=== PATIENT | male | born 1950 | race Caucasian/White ===

== ENCOUNTER 2017-10-29 10:08 | Emergency (ER) | payer MEDICARE, OTHER ==
[2017-10-29 11:42] LABS: #Basophils 0.1 thou/uL (0.0-0.2); #Eosinphils 0.1 thou/uL (0.0-0.7); #Lymphocytes 0.9 thou/uL (1.20-3.40); #Monocytes 1.2 thou/uL (0.11-0.59); #Neutrophils 7.2 thou/uL (1.40-6.50); %Basophils 0.6 % (0.0-1.0); %Eosinophils 1.4 % (0.0-10.0); %Lymphocytes 9.1 % (21.0-51.0); %Monocytes 12.2 % (0.0-10.0); %Neutrophils 76.6 % (42.0-75.0); Hemoglobin 14.9 g/dL (14.0-18.0); Mean Corpuscular HGB CONC 31.9 g/dL (32.0-36.0); Mean Corpuscular Hemoglobin 28.2 pg (27.0-31.0); Mean Corpuscular Volume 88.4 fl (80.0-94.0); Mean Platelet Volume 7.1 fL (7.4-10.4); Platelet Count 349 thou/uL (130-400); RBC Distribution Width 12.9 % (11.5-14.5); Red Blood Cell (RBC) Count 5.27 mill/uL (4.70-6.10); White Blood Cell (WBC) Count 9.4 thou/uL (4.8-10.8)
[2017-10-29 11:59] LABS: ALT (SGPT) 25 U/L (8-55); AST (SGOT) 47 U/L (5-34); Albumin 3.6 g/dL (3.4-4.8); Alkaline Phosphatase 124 U/L (40-150); Anion Gap 16 mmol/L (10-20); BUN (Urea Nitrogen) 18 mg/dL (8.4-25.7); Bilirubin, Total 0.5 mg/dL (0.2-1.2); Calc. Creatinine Clearance 0 mL/min (70-130); Calcium 10.5 mg/dL (7.8-10.44); Carbon Dioxide 26 mmol/L (23-31); Chloride 98 mmol/L (98-107); Estimated GFR-MDRD 71; Globulin 2.6 g/dL (2.4-3.5); Glucose 122 mg/dL (80-115); Potassium 4.5 mmol/L (3.5-5.1); Protein, Total 6.2 g/dL (5.8-8.1); Sodium 135 mmol/L (136-145)
[2017-10-29] MEDS ORDERED: predniSONE 20 MG TAB ONE (11:59)
[2017-10-29] MEDS ORDERED: hydrOXYzine 10 MG TAB PO SCH (12:15)
[2017-10-29 13:16] LABS: Bilirubin Small (Negative); Blood, Urine Large (Negative); Clarity CLOUDY (Clear); Glucose, Urine (Dipstick) Negative (Negative); Leukocyte Trace (Negative); Nitrite Negative (Negative); Protein, Urine (Dipstick) 30 mg/dL (Neg-Trace); Specific Gravity, Urine 1.028 (1.002-1.036)
[2017-10-29 13:21] LABS: Bacteria/HPF None Seen HPF (None Seen); Hyaline Casts/LPF 4-6 HYALINE CAST LPF (0-3 Hyaline); Pathc Cast-AUWi Flag 1.01 (0-2.49); RBC/HPF 21-50 HPF (0-3); Squamous Epithelial None Seen HPF (0-3); WBC/HPF 0-3 HPF (0-3)
== END 2017-10-29 14:20 | disposition home or self-care (01) ==
LOC: ERS 10:08
DX: R21 Rash and other nonspecific skin eruption (principal); R31.9 Hematuria, unspecified; Z87.891 Personal history of nicotine dependence
CPT/HCPCS: 36415; 80053; 81003; 81015; 85025; 86140; 99283; J7506

== ENCOUNTER 2017-11-18 11:44 | Inpatient (IN) | payer MEDICARE, OTHER ==
[2017-11-18 12:08] LABS: #Basophils 0.1 thou/uL (0.0-0.2); #Eosinphils 0.1 thou/uL (0.0-0.7); #Lymphocytes 1.5 thou/uL (1.20-3.40); #Monocytes 1.9 thou/uL (0.11-0.59); %Basophils 0.4 % (0.0-1.0); %Eosinophils 0.4 % (0.0-10.0); %Lymphocytes 7.6 % (21.0-51.0); %Monocytes 9.7 % (0.0-10.0); %Neutrophils 81.9 % (42.0-75.0); Hemoglobin 15.5 g/dL (14.0-18.0); Mean Corpuscular HGB CONC 32.5 g/dL (32.0-36.0); Mean Corpuscular Hemoglobin 27.7 pg (27.0-31.0); Mean Corpuscular Volume 85.4 fl (80.0-94.0); Mean Platelet Volume 6.6 fL (7.4-10.4); Platelet Count 455 thou/uL (130-400); RBC Distribution Width 14.8 % (11.5-14.5); Red Blood Cell (RBC) Count 5.59 mill/uL (4.70-6.10); White Blood Cell (WBC) Count 19.5 thou/uL (4.8-10.8)
[2017-11-18 12:29] LABS: ALT (SGPT) 130 U/L (8-55); AST (SGOT) 208 U/L (5-34); Albumin 3.3 g/dL (3.4-4.8); Alkaline Phosphatase 760 U/L (40-150); Anion Gap 19 mmol/L (10-20); BUN (Urea Nitrogen) 52 mg/dL (8.4-25.7); Bilirubin, Total 7.1 mg/dL (0.2-1.2); Calc. Creatinine Clearance 0 mL/min (70-130); Carbon Dioxide 27 mmol/L (23-31); Chloride 87 mmol/L (98-107); Estimated GFR-MDRD 41; Globulin 2.4 g/dL (2.4-3.5); Glucose 99 mg/dL (80-115); Lipase 156 U/L (8-78); Potassium 5.1 mmol/L (3.5-5.1); Protein, Total 5.7 g/dL (5.8-8.1); Sodium 128 mmol/L (136-145)
[2017-11-18] MEDS ORDERED: Meropenem 2 GM, Admixture Fee 1 EACH in Sodium Chloride 0.9% 100 ML IVPB SCH (12:30)
[2017-11-18] MEDS ORDERED: Meropenem 2 GM in Admixture Fee 1 EACH IVPB SCH (12:30)
[2017-11-18 12:31] LABS: Calcium 14.5 mg/dL (7.8-10.44)
--- NOTE | 2017-11-18 13:17 | CT ---
CONTRAST ENHANCED CT IMAGES OF THE ABDOMEN AND PELVIS: HISTORY: Jaundice, metastases to liver. FINDINGS: Contrast-enhanced CT images of the abdomen and pelvis were obtained after administration of IV contra st. Tiny bilateral pleural effusions seen. Granuloma is seen in the right lower lobe. There is an anterior pericardial soft tissue mass measuring approximately 1.5 x 2.6 cm. This may rep resent a pericardial metastatic disease. There are numerous hepatic hypodense lesions compatible with extensive liver metastases. The majority of the spleen has been replaced by hypodense masses. There is splenomegaly seen. Findi ngs compatible with extensive splenic metastases. There is marked periportal lymphadenopathy, celiac lymphadenopathy, periaortic lymphadenopathy. Lymphadenopathy is seen enveloping the left renal vein . Numerous enlarged mesenteric lymph nodes are also seen. There is also a large mass posterior to t he pancreatic head. No obvious evidence of osseous lesion seen. Lumbar degenerative change is seen. There is abnormal enhancement of the gallbladder. There appears to be some gallbladder wall thickening and some enhancing concerning for acute cholecys titis. Some small gallstones are also present. There is a 7.8 mm nonobstructing mid pole left renal calculus. There is also an obstructing left ure teral calculus diameter measuring approximately 9.6 mm; however, the left-sided collecting system is not dilated. IMPRESSION: 1. Extensive intraabdominal lymphadenopathy, extensive hepatic, pericardial, and splenic lesions com patible with extensive metastatic disease. Differential diagnosis includes lymphoma. 2. Abnormal enhancement of the gallbladder with areas of hyperdensity within the gallbladder compati ble with acute cholecystitis and gallstones. 3. Left-sided renal calculus with nonobstructing but large left ureteral calculus. POS: CHRISTIANE
[2017-11-18 13:32] LABS: Bilirubin Moderate (Negative); Blood, Urine Large (Negative); Clarity CLEAR (Clear); Glucose, Urine (Dipstick) Negative (Negative); Leukocyte Small (Negative); Nitrite Negative (Negative); Protein, Urine (Dipstick) Negative (Neg-Trace); Specific Gravity, Urine 1.029 (1.002-1.036)
[2017-11-18 13:35] LABS: Bacteria/HPF None Seen HPF (None Seen); Hyaline Casts/LPF 4-6 HYALINE CAST LPF (0-3 Hyaline); Pathc Cast-AUWi Flag 1.74 (0-2.49); Squamous Epithelial None Seen HPF (0-3)
--- NOTE | 2017-11-18 13:35 | ULT ---
RIGHT UPPER QUADRANT ULTRASOUND: HISTORY: Right upper quadrant pain, jaundice. FINDINGS: Multiple longitudinal and transverse images of the right upper quadrant of the abdomen were obtained using a multihertz curvilinear transducer. Real-time, color flow, and spectral waveform Doppler anal ysis was used to evaluate the right upper quadrant. Images demonstrate marked heterogeneity compatible with extensive liver metastases. The common bile duct is not significantly dilated measuring approximately 6 mm. Normal hepatopetal flow is seen. The right kidney is unremarkable. The pancreas is difficult to visualize due to overlying bowel gas. Please see accompanying CT of the abdomen. The gallbladder is difficult to visualize. IMPRESSION: Extensive hepatic metastases. POS: MILENA
[2017-11-18 13:45] LABS: Crystals/HPF 1+ CA OXALATE HPF (Negative)
[2017-11-18] MEDS ORDERED: Sodium Chloride 0.9% 1,000 ML IV SCH (15:27)
[2017-11-18] MEDS ORDERED: Ondansetron HCl/PF 4 MG/2 ML Vial IVP PRN (15:35)
[2017-11-18] MEDS ORDERED: Morphine 4 MG/ML VIAL SLOW IVP PRN (15:38)
[2017-11-18] MEDS ORDERED: cefTRIAXone\\ROCEPHIN 1 GM in Sodium Chloride 0.9% 100 ML IVPB SCH (15:45)
[2017-11-18 15:57] LABS: INR-International Normal Ratio 1.1; PTT 31.8 SEC (22.9-36.1)
[2017-11-18] MEDS ORDERED: Zoledronic Acid 4 MG in Sodium Chloride 0.9% 100 ML IVPB SCH (16:30)
[2017-11-18] MEDS ORDERED: ISOVUE-370 76%-LOCM 1 ML ONE (16:31)
[2017-11-18] MEDS: Dextrose 5 %-0.45 % NaCl 1,000 ML IV SCH (17:53)
[2017-11-18] MEDS: cefTRIAXone\\ROCEPHIN 1 GM, Syringe 0.4 ML in Sterile Water 9.6 ML SLOW IVP SCH (17:58)
--- NOTE | 2017-11-18 18:29 | HP ---
PRIMARY CARE PROVIDER: [place]o[facility]ano Chi. CHIEF COMPLAINT: Referred to the [facility] by [facility] Emergency Department for widely metastatic abdominal CA. HISTORY OF PRESENT ILLNESS: Patient states he cannot move himself. He has had profound weakness. H e states his illness started about 4 or 5 months ago when he hurt his knee. His weakness, etcetera h as been progressive. He is anorectic, has lost an unknown number of pounds. He has been nauseated w ith no definite emesis. He has had markedly decreased BMs had been dark, not angelica colored and not bl ack. He has had diffuse abdominal pain for about 2 months. Denies any back pain. Denies fever or c hills. He has had some diffuse itching and some variable dizziness. PAST MEDICAL HISTORY: Pertinent only for hypertension. MEDICATIONS: He takes lisinopril, unknown dose. ALLERGIES: SULFA. PAST SURGICAL HISTORY: He has had unobstructed renal stone, treated with lithotripsy in the past. FAMILY HISTORY: Mother and father both . There is no inherited diseases in the family. SOCIAL HISTORY: . Daughter, Margaret Frias is next of kin. No tobacco. Drinks couple of drink s occasionally. CODE STATUS: DNR. I discussed this with him, his son, and daughter. They discussed it together and they are agreeable with DNR, but do wish to have anything treated this treatable. I reassured him t hat this was indeed our plan. REVIEW OF SYSTEMS: GENERAL: Some vague dizziness without fainting. No fever or chills. Positive itching. EYES: No double vision, blurred vision, flashing lights. ENT: No ear pain or drainage. No nasal bleeding. No trouble swallowing. CARDIAC: No chest pain, orthopnea or paroxysmal nocturnal dyspnea. RESPIRATORY: He has some dyspnea on exertion, some vague shortness of breath at rest. No history of cough or asthma. GASTROINTESTINAL: See present illness. GENITOURINARY: He notes decreased urine output. No blood, no pain. MUSCULOSKELETAL: Profound weakness, nonfocal. No swelling or muscle pain or joint pain. NEUROLOGIC: No strokes, seizures or focal weakness. PSYCHIATRIC: No anxiety or depression. SKIN: No bruises, bleeding or rash. HEME/LYMPH: No tender or swollen lymph nodes in axilla, inguinal or cervical area. PHYSICAL EXAMINATION: GENERAL: He is an alert, appropriate, appearing chronically ill. VITAL SIGNS: Blood pressure 134/72, pulse 73, respirations 18, pulse ox 96 on room air, temperature 97.6. HEENT: Pupils equal and round. Extraocular movements are intact. Icteric sclerae. Tympanic membra anne clear. Nose is clear. Oral mucous membranes are dry. Dental hygiene is fair. NECK: No adenopathy, jugular venous distention, thyromegaly. CHEST: Clear to auscultation and percussion. HEART: Regular rate and rhythm. First and second heart sounds are clear. There are no appreciated murmurs or gallops. ABDOMEN: Diffusely tender, most pronounced in bilateral upper quadrants. There is hepatomegaly by p ercussion, splenomegaly could not be determined due to tenderness. Bowel sounds are active. There w ere no bruits. EXTREMITIES: Reveal no cyanosis, clubbing or edema. PULSES: Carotid, radial, femoral, and dorsalis pedis pulses intact. SKIN: He has decreased skin turgor, sallow complexion. Warm and dry. LYMPHATIC SURVEY: Negative for nodes in axilla, inguinal or cervical area. NEUROLOGICAL: Cranial nerves II through XII are intact. Deep tendon reflexes grossly symmetric. Mo ves all extremities. LABORATORY DATA: Sodium 128, potassium 5.1, chloride 87, CO2 of 27, BUN 52, creatinine 1.68. Lactic acid 3.2, calcium 14.5, bilirubin 7.1, AST 208, ALT 130. Alkaline phosphatase 760. Ammonia low at 17. Total serum protein is low at 5.7, albumin low at 3.3. Urine had a few white cells with small l eukocyte esterase and trace ketones. Hematology: White count 19.5, hemoglobin 15.5, platelet count 455,000. CT of the abdomen was reviewed by self. Results are extensive intra-abdominal adenopathy w ith hepatic pericardial and splenic lesions, abnormal and splitted gallbladders compatible with annie cystitis and cholelithiasis and a nonobstructing mid pole left renal calculus, obstructing left urete ral calculus. No EKG provided. ADMITTING DIAGNOSES: 1. Marked hypercalcemia. 2. Apparent widely metastatic intra-abdominal malignant process/carcinoma. 3. Abdominal pain. 4. Cholecystitis/cholelithiasis. 5. Acute renal failure. 6. Hypertension. 7. Renal stones. Situation has been discussed with the family. HIDA scan has been ordered for further evaluation of t he gallbladder. Dr. Narvaez has been consulted and is aware the patient. Dr. Gomez has been call ed and will see the patient tomorrow. The patient will also receive 4 mg of Zometa today. IV fluids will be given, morphine sulfate for pain, Zofran for nausea. Diet as tolerated for right now. Seri al lab including comp metabolic profile and CBC will be done daily for now. Antibiotic/Rocephin will be administered for possible abdominal infection. Blood cultures have been drawn. Prognosis on thi s patient is guarded.
[2017-11-18] MEDS ORDERED: Calcium Carbonate 500 MG ChewTAB PO PRN (20:42)
[2017-11-18] MEDS ORDERED: Prevnar 13-Val Conj/PF 0.5 ML SYRINGE IM ONE (21:00)
--- NOTE | 2017-11-18 22:18 | CON ---
DATE OF CONSULTATION: 11/18/2017 REASON FOR CONSULTATION: Possible cholecystitis. HISTORY: Mr. Montelongo is a 67-year-old man who came to the emergency room with a chief complaint of decreased appetite and energy. His daughter has also noticed a change in his skin color. He states that he started to feel bad about 4 months ago with intermittent fevers and chills. He has been havi ng night sweats to the point where he has to change the sheets and has also lost some weight. He den ies any abdominal pain, but has no appetite and is frequently nauseated. He has been having bowel mo vements, although he cannot recall when his last one was. He denies any melena or hematochezia. He denies any cough, sore throat, or runny nose. He has not had any rashes, but did say that he has had some flea bites and thought at first that he might be having an allergic reaction to them. He did c ome to the ER last month due to concern about his rash and was given some prednisone and sent home. He states that he was having his other symptoms then, but not to the same degree. He did have lab wo rk done at that time and his white count was normal and his LFTs were basically normal except for mil d elevation of his AST at 47. His calcium was slightly high at 10.5, but his other electrolytes were normal. PAST MEDICAL HISTORY: Hypertension. He takes lisinopril and reports SULFA allergy. FAMILY HISTORY: Negative. PAST SURGICAL HISTORY: Lithotripsy. SOCIAL HISTORY: He quit smoking 30 years ago. He drinks occasionally, does not use any illicit drug s. REVIEW OF SYSTEMS: Ten-system review of systems is negative except per HPI. PHYSICAL EXAMINATION: VITAL SIGNS: The patient is afebrile, heart rate in the 70s, respirations 18, 96% saturated on room air, blood pressure 134/72. GENERAL: Reveals a chronically ill appearing man with noticeable jaundice and icterus. He is not fl ushed or toxic in appearance. HEENT: Unremarkable. NECK: Supple without lymphadenopathy or thyroid nodules. HEART: Regular in its rate and rhythm without murmurs, rubs, or gallops. LUNGS: Clear. ABDOMEN: His abdomen is soft, slightly tender to palpation mostly in the right upper quadrant. He d oes have some hepatomegaly and splenomegaly. No other palpable masses or hernias. No rigidity, rebo und, or guarding. EXTREMITIES: Warm and well perfused without significant edema. I do not note any inguinal adenopath y. He may have a palpable left axillary lymph node. I do not notice any on the right. The patient does state that he was treated for enlarged lymph nodes in the past, but this got better. He states that these were in his axilla. NEUROLOGIC: No focal deficits. PSYCHIATRIC: Alert, oriented, and appropriate. LABORATORY AND DIAGNOSTIC DATA: White count is elevated at 19.5, hematocrit is 47.8, and platelets a re 455,000. Coags are normal. Sodium is low at 128, chloride is low at 87. BUN and creatinine are elevated at 52 and 1.68, calcium is elevated at 14.5. Lactate is slightly high at 3.2, bilirubin is very elevated at 7.1. AST and ALT are 208 and 130. Alkaline phosphatase is 760, albumin is low at 3 .3, and lipase is slightly elevated at 156. Ultrasound of the abdomen revealed multiple masses in li briana and spleen, gallbladder was not well seen. A CT scan confirms multiple metastatic appearing lesi ons in the liver and spleen as well as significant adenopathy in the octavio hepatis area and behind th e head of the pancreas. His gallbladder was noted to be enhancing with dense material in the lumen c onsistent with stones, worrisome for cholecystitis. ASSESSMENT: Metastatic cancer of uncertain primary, pancreatic and biliary sources are within the di fferential diagnosis in which case treatment options are limited. He does not have any specific joaquín rointestinal findings to suggest a gastric or colonic. Primary lymphoma is also possible and he does have some symptoms which are somewhat suggestive of this. There was concern for cholecystitis given his elevated white count and findings on CT; however, his tenderness in the right upper quadrant is adequately explained by the extensive metastases and even if he has cholecystitis, he is not really a n operative candidate, I think that given the extensive disease in the octavio hepatis area, it would b e very difficult to perform a laparoscopic cholecystectomy and technically he would only be likely to be able to undergo a subtotal cholecystectomy, which I am not convinced that he has cholecystitis ba sed on his history, but I have ordered a HIDA scan for tomorrow. If he does have cholecystitis, hope fully this will be adequately treated with antibiotics alone, but if he has worsening symptoms, I wou ld recommend cholecystostomy tube. I am not sure that the risks are justified by the potential benef it of the presumptive cholecystectomy, he will be at high risk for conversion to open and subtotal ch olecystectomy. I anticipate he will have a CT-guided biopsy of one of the livers or splenic masses f or diagnosis. If he requires a MediPort for chemotherapy, I will be happy to place this for him. I will continue to follow peripherally as previously stated, I do not feel he is an operative candidate .
[2017-11-19] MEDS: Dextrose 5 %-0.45 % NaCl 1,000 ML IV SCH ×2 (00:35→06:40)
[2017-11-19 05:23] LABS: ALT (SGPT) 131 U/L (8-55); AST (SGOT) 205 U/L (5-34); Albumin 2.7 g/dL (3.4-4.8); Alkaline Phosphatase 623 U/L (40-150); Anion Gap 15 mmol/L (10-20); BUN (Urea Nitrogen) 45 mg/dL (8.4-25.7); Bilirubin, Total 6.9 mg/dL (0.2-1.2); Calc. Creatinine Clearance 62 mL/min (70-130); Carbon Dioxide 26 mmol/L (23-31); Chloride 92 mmol/L (98-107); Estimated GFR-MDRD 55; Globulin 2.1 g/dL (2.4-3.5); Glucose 113 mg/dL (80-115); Potassium 4.9 mmol/L (3.5-5.1); Protein, Total 4.8 g/dL (5.8-8.1); Sodium 128 mmol/L (136-145)
[2017-11-19 05:30] LABS: Calcium 12.7 mg/dL (7.8-10.44)
[2017-11-19 05:31] LABS: Band 5 % (5-11); Hemoglobin 13.9 g/dL (14.0-18.0); Lymphocytes 4 % (21-51); MDiff Complete? YES; Mean Corpuscular HGB CONC 32.2 g/dL (32.0-36.0); Mean Corpuscular Hemoglobin 28.3 pg (27.0-31.0); Mean Corpuscular Volume 87.7 fl (80.0-94.0); Mean Platelet Volume 7.2 fL (7.4-10.4); Monocytes 11 % (0-10); Neutrophil 80 % (42-75); Platelet Count 373 thou/uL (130-400); RBC Distribution Width 14.9 % (11.5-14.5); Red Blood Cell (RBC) Count 4.93 mill/uL (4.70-6.10); White Blood Cell (WBC) Count 16.9 thou/uL (4.8-10.8)
--- NOTE | 2017-11-19 12:32 | PDOC.PN ---
- Subjective Encounter Start Date: 11/19/17 Encounter Start Time: 12:31 Patient seen and examined, no new issues, abdominal pain remains unchanged. - Objective Resuscitation Status: Resuscitation Status DNR:Do Not Resuscitate Vital Signs & Weight: Vital Signs (12 hours) Temp Pulse Resp BP Pulse Ox 11/19/17 08:00 98.0 F 76 16 104/69 94 L Weight Weight 179 lb 14.4 oz I&O: 11/18/17 11/19/17 11/20/17 06:59 06:59 06:59 Intake Total 1890 Output Total 750 Balance 1140 Result Diagrams: 11/19/17 04:27 11/19/17 04:27 Phys Exam - Physical Examination mild distress HEENT: PERRLA, moist MMs jaundiced Neck: no nodes, no JVD, supple Respiratory: no wheezing, no rales, no rhonchi Cardiovascular: RRR, no significant murmur, no rub Gastrointestinal: soft mild tenderness to palpation in all quadrants Musculoskeletal: pulses present, edema present (trace) Dx/Plan (1) Metastatic cancer Code(s): C79.9 - SECONDARY MALIGNANT NEOPLASM OF UNSPECIFIED SITE Status: Acute (2) Acute kidney failure Status: Acute (3) Hypercalcemia Code(s): E83.52 - HYPERCALCEMIA Status: Acute (4) Hyponatremia Code(s): E87.1 - HYPO-OSMOLALITY AND HYPONATREMIA Status: Acute - Plan * HIDA ordered for today and pending * surgery and oncology following * unknown primary malignancy * prognosis appears poor, will await oncology input prior to placement of palliative care consult * continue current plan of care for now with no changes * pain controlled.
--- NOTE | 2017-11-19 13:10 | CON ---
DATE OF CONSULTATION: 11/19/2017 REASON FOR CONSULTATION: Advanced malignancy. HISTORY: This is a 67-year-old male who has not been feeling well for about 4 months. He was having abdominal pain and fever. He was taking care of his terminally ill who 2 months ago. He was admitted yesterday and found to have extensive metastases including to liver, sp joseline and abdominal lymph nodes and was also found to be hypercalcemic. The patient was likely under the effect of pain medicine and was not able to give much history. In talking to his daughter, it se ems that he has been confused at times. PAST MEDICAL HISTORY: Positive for hypertension. DRUGS WITH ADVERSE EFFECT: SULFONAMIDES. PAST SURGICAL HISTORY: He had lithotripsy for renal stone. PERSONAL, FAMILY AND SOCIAL HISTORY: The patient has been recently . He lives by himself. H e drinks occasionally and quit smoking over 20 years ago. REVIEW OF SYSTEMS: I was not able to do detailed review of systems because the patient was not able to answer questions. PHYSICAL EXAMINATION: VITAL SIGNS: Height 5 feet 8 inches, weight 179, blood pressure 104/69, temperature 98, pulse 76, re spirations 16. HEENT: Unremarkable except for jaundice. LYMPH NODES: No definite adenopathy in cervical, supraclavicular, axillary or inguinal area. CHEST: Vesicular breath sounds without rales or rhonchi. HEART: S1 and S2. Regular rhythm. ABDOMEN: Soft. There is some tenderness in the upper abdomen. Bowel sounds present. EXTREMITIES: Without pedal edema. LABORATORY DATA AND IMAGING DATA: CBC showed WBC of 16.9, hemoglobin 13.9 and platelet count of 373. Differential showed 80% neutrophils and 4% lymphocytes. Protime PTT was normal yesterday. Staff Research Associate ry profile is remarkable for calcium that was 14.5 yesterday and 12.7 today. He is hyponatremic with sodium of 128. BUN 45, creatinine 1.3 with EGFR of 55. Bilirubin 6.9, AST 205, ALT 131 and alkalin e phosphatase 130. Serum ammonia elevated at [address] scan of the abdomen showed larg e volume metastatic deposits in the liver and spleen. There is also marked periportal lymphadenopath y, celiac adenopathy and periaortic adenopathy. Lymphadenopathy was enveloping the left renal vein. Numerous enlarged mesenteric lymph nodes were also noted. There is also a large mass posterior to t he pancreatic head. There was some thickening of the gallbladder wall. A 7.8 mm nonobstructing calc ulus was noted in the midpole of the left kidney. There was also an obstructing left ureteral calcul us measuring 9.6 mm without left-sided hydronephrosis. There was 1.5 x 2.6 cm anterior pericardial s oft tissue mass suggestive of pericardial metastasis. ASSESSMENT AND RECOMMENDATIONS: This patient has extensive metastatic disease involving liver, splee n and abdominal lymph nodes. There is a question about pericardial metastasis. This could potential ly be lymphoma. We do not have any imaging studies. The chest x-ray showed carcinoma of the lung wi ll have to be excluded. He is hyperbilirubinemic clinically from obstruction of the biliary tree and from hepatic mets. Hypercalcemia could be from skeletal mets or as paraneoplastic manifestation. He should be evaluated with a chest x-ray, bone scan, and a liver biopsy which has been ordered for t omorrow. Thanks very much for allowing me to participate in this patient's care.
--- NOTE | 2017-11-19 13:53 | RAD ---
AP VIEW OF THE CHEST: INDICATION: Concern for a lung mass. FINDINGS: No lung mass is demonstrated. There is a calcification overlying the right lower lobe suspicious for a granuloma. Heart size and pulmonary vasculature is within normal limits. No acute osseous abnorm ality is evident. IMPRESSION: No acute abnormality. POS: [facility]
--- NOTE | 2017-11-19 15:42 | PRG ---
DATE OF SERVICE: 11/19/2017 Mr. Montelongo is still very groggy today. He will wake up and answer questions. He denies abdominal pain, but still has abdominal tenderness to palpation. He has been afebrile and his vital signs are okay. Dr. Gomez has seen him and is concerned about the patient's ability to tolerate chemotherap y of any kind given his frailty. He has had some of his HIDA scan images, but the report is not back . I have looked at the images, but they are very difficult to interpret due to his widespread liver metastases. I cannot even definitely identify his gallbladder due to the abnormal appearance of the liver, so the HIDA may be uninterpretable. In any case, his white count is down somewhat and he has not had any fevers, so we will continue with just antibiotic treatment at this time.
--- NOTE | 2017-11-19 17:01 | NM ---
HEPATOBILIARY SCAN: History: Patient with possible cholecystitis. Abnormal gallbladder on CT. Dose: 1.9 mCi Technetium 99M Choletec given IV. In addition, 2 mg of Morphine was also given. Delayed images up to 5 hours obtained. FINDINGS: Images demonstrate uptake of the radioisotopes seen in the liver. At approximately 4 hours post injec tion, there is some visualization of some of the isotope within the small bowel. The gallbladder is n ever visualized even after injection of Morphine. Findings suggesting acute cholecystitis compatible with the patient's CT findings. IMPRESSION: Decreased excretion of the Choletec out of the biliary system with delayed and continued activity thr ough the hepatic parenchyma. There was some activity noted in the small bowel suggesting some biliary excretion. The gallbladder is never visualized compatible with acute cholecystitis. POS: [facility]
[2017-11-19] MEDS: cefTRIAXone\\ROCEPHIN 1 GM, Syringe 0.4 ML in Sterile Water 9.6 ML SLOW IVP SCH (17:55)
[2017-11-19] MEDS: Sodium Chloride 0.9% 1,000 ML IV SCH ×2 (17:57→18:41)
[2017-11-19] MEDS ORDERED: Ondansetron ODT 4 MG TAB SL PRN (20:12)
[2017-11-20] MEDS: Sodium Chloride 0.9% 1,000 ML IV SCH ×3 (03:43→23:58)
[2017-11-20 05:53] LABS: ALT (SGPT) 173 U/L (8-55); AST (SGOT) 249 U/L (5-34); Albumin 2.9 g/dL (3.4-4.8); Alkaline Phosphatase 687 U/L (40-150); Anion Gap 15 mmol/L (10-20); BUN (Urea Nitrogen) 46 mg/dL (8.4-25.7); Bilirubin, Total 9.3 mg/dL (0.2-1.2); Calc. Creatinine Clearance 60 mL/min (70-130); Carbon Dioxide 23 mmol/L (23-31); Chloride 96 mmol/L (98-107); Estimated GFR-MDRD 52; Globulin 2.3 g/dL (2.4-3.5); Glucose 79 mg/dL (80-115); Potassium 5.3 mmol/L (3.5-5.1); Protein, Total 5.2 g/dL (5.8-8.1); Sodium 129 mmol/L (136-145)
[2017-11-20 05:58] LABS: Band 10 % (5-11); Eosinophils 1 % (0-10); Hemoglobin 15.5 g/dL (14.0-18.0); Lymphocytes 3 % (21-51); MDiff Complete? YES; Mean Corpuscular HGB CONC 32.1 g/dL (32.0-36.0); Monocytes 8 % (0-10); Neutrophil 78 % (42-75); Platelet Count 333 thou/uL (130-400); RBC Distribution Width 15.2 % (11.5-14.5); Red Blood Cell (RBC) Count 5.54 mill/uL (4.70-6.10); White Blood Cell (WBC) Count 20.6 thou/uL (4.8-10.8)
[2017-11-20] MEDS ORDERED: Milk Of Magnesia 30 ML UDCUP PO PRN (07:23)
[2017-11-20] MEDS ORDERED: Diabetic Tussin 200 MG/10 ML UDCUP PO PRN (07:23)
[2017-11-20] MEDS ORDERED: Artificial Tears 18 DROP/0.9 ML EA EYE PRN (07:23)
[2017-11-20] MEDS ORDERED: hydrALAZINE 20 MG/ML VIAL SLOW IVP PRN (07:23)
[2017-11-20] MEDS ORDERED: Eucerin (Mineral Oil/Petrolatum,White) 30 gm Jar TOP PRN (07:23)
[2017-11-20] MEDS ORDERED: Chloraseptic Spray 180 ml Bottle PO PRN (07:23)
[2017-11-20] MEDS ORDERED: Sodium Chloride 0.65% Nasal 44 ML BOT EA NARE PRN (07:23)
[2017-11-20] MEDS ORDERED: Senokot 8.6 MG TAB PO PRN (07:23)
[2017-11-20] MEDS ORDERED: Loratadine 10 MG TAB PO PRN (07:23)
[2017-11-20] MEDS ORDERED: Mag-Al 1200 mg/1200 mg/30 ML UDCUP PO PRN (07:23)
[2017-11-20] MEDS ORDERED: Loperamide HCl 2 MG CAP PO PRN (07:23)
--- NOTE | 2017-11-20 08:33 | PDOC.PN ---
- Subjective Encounter Start Date: 11/20/17 Encounter Start Time: 07:00 -: old records requested/rev pt is lethargic, arousable, family bedside, pt did sleep intermittently, has poor apatite, no fever Patient seen and examined. No overnight events - Objective Resuscitation Status: Resuscitation Status DNR:Do Not Resuscitate MAR Reviewed: Yes Vital Signs & Weight: Vital Signs (12 hours) Temp Pulse Resp BP Pulse Ox 11/20/17 06:03 98.0 F 80 22 H 109/74 98 11/20/17 00:00 98 11/19/17 23:53 98.1 F 78 18 106/70 98 11/19/17 22:07 98.1 F 78 18 92 L Weight Weight 179 lb 14.4 oz I&O: 11/19/17 11/20/17 11/21/17 06:59 06:59 06:59 Intake Total 1890 1300 Output Total 750 450 Balance 1140 850 Result Diagrams: 11/20/17 04:58 11/20/17 04:57 Radiology Reviewed by me: Yes (CT abdo, HIDA scan, Chest xray) Phys Exam - Physical Examination Constitutional: NAD HEENT: PERRLA, moist MMs Icterus+ Neck: no JVD, supple, full ROM Respiratory: no wheezing, no rales, no rhonchi Cardiovascular: RRR, no significant murmur, no rub Gastrointestinal: soft, non-tender, no distention, positive bowel sounds Musculoskeletal: no edema, pulses present Neurological: moves all 4 limbs Lymphatic: no nodes Psychiatric: normal affect Skin: no rash, normal turgor Dx/Plan (1) Acute metabolic encephalopathy Code(s): G93.41 - METABOLIC ENCEPHALOPATHY Status: Acute (2) Abnormal LFTs Code(s): R94.5 - ABNORMAL RESULTS OF LIVER FUNCTION STUDIES Status: Acute Comment: suspecting from liver metastasis, doubt has any acute cholecystitis (3) Acute kidney failure Status: Acute Comment: prerenal, continue IVF, avoid nephrotoxin, monitor renal function (4) Bandemia Code(s): D72.825 - BANDEMIA Status: Acute Comment: may be metastasis related , still on empiric antibiotics (5) Hypercalcemia Code(s): E83.52 - HYPERCALCEMIA Status: Acute Comment: due to paraneuoplastic process (6) Hyperkalemia Code(s): E87.5 - HYPERKALEMIA Status: Acute (7) Hyponatremia Code(s): E87.1 - HYPO-OSMOLALITY AND HYPONATREMIA Status: Acute (8) Lactic acidosis Code(s): E87.2 - ACIDOSIS Status: Acute (9) Left nephrolithiasis Code(s): N20.0 - CALCULUS OF KIDNEY Status: Chronic (10) Left ureteral calculus Code(s): N20.1 - CALCULUS OF URETER Status: Chronic (11) Metastatic cancer Code(s): C79.9 - SECONDARY MALIGNANT NEOPLASM OF UNSPECIFIED SITE Status: Acute Comment: unknown primary - Plan cont current plan of care, plan discussed w/ family, continue antibiotics * today plan for liver biopsy * today Bone scan * no plan for lap annie as per surgeon * continue conservative treatment with IVF, empiric antibiotics * oncology following * monitor labs * prognosis based on final diagnosis * palliative care based on final diagnosis * medication reviewed as below * symptomatic treatment * discussed with family. Review of Systems - Review of Systems Other: not reliable due to his level of alertness - Medications/Allergies Allergies/Adverse Reactions: Allergies Allergy/AdvReac Type Severity Reaction Status Date / Time Sulfa (Sulfonamide Allergy Verified 10/29/17 12:08 Antibiotics) Medications: Current Medications Al Hydroxide/Mg Hydroxide (Maalox) 15 ml PO Q4H PRN PRN Reason: Heartburn or Indigestion Artificial Tears (Tears Naturale) 0 drop EA EYE PRN PRN PRN Reason: Dry Eyes Famotidine (Pepcid) 20 mg PO BID [facility] Guaifenesin (Robitussin Sf) 200 mg PO Q4H PRN PRN Reason: Cough Hydralazine HCl (Apresoline) 10 mg SLOW IVP Q4H PRN PRN Reason: Systolic BP > 180 Ceftriaxone Sodium 1 gm/ (Syringe 0.4 ml/ Sterile Water) 10 mls @ 120 mls/hr SLOW IVP Q24HR@1700 [facility] Last Admin: 11/19/17 17:55 Dose: 10 mls Sodium Chloride (Normal Saline 0.9%) 1,000 mls @ 100 mls/hr IV .Q10H [facility] Last Admin: 11/20/17 03:43 Dose: 1,000 mls Loperamide HCl (Imodium) 2 mg PO PRN PRN PRN Reason: Diarrhea/Loose Stools Loratadine (Claritin) 10 mg PO DAILYPRN PRN PRN Reason: Sinus Symptoms Magnesium Hydroxide (Milk Of Magnesium) 30 ml PO DAILYPRN PRN PRN Reason: Constipation Mineral Oil/White Petrolatum (Eucerin Cream) 0 gm TOP BIDPRN PRN PRN Reason: Dry Skin Morphine Sulfate (Morphine) 2 mg SLOW IVP Q4H PRN PRN Reason: Pain Last Admin: 11/19/17 14:23 Dose: 2 mg Ondansetron HCl (Zofran) 4 mg IVP Q6H PRN PRN Reason: Nausea/Vomiting Last Admin: 11/18/17 19:39 Dose: 4 mg Ondansetron HCl (Zofran Odt) 4 mg SL Q6H PRN PRN Reason: Nausea/Vomiting Phenol (Chloraseptic [place] 180 Ml Bot) 0 ml PO PRN PRN PRN Reason: Sore Throat Senna (Senokot) 2 tab PO HSPRN PRN PRN Reason: Constipation Sodium Chloride ([place] Nasal [place] 0.65%) 0 ml EA NARE QIDPRN PRN PRN Reason: Nasal Congestion
[2017-11-20] MEDS: Famotidine 20 MG TAB PO SCH ×2 (09:00→20:31)
[2017-11-20] MEDS ORDERED: Midazolam HCl 2 mg/2 ml Vial ONE (10:41)
[2017-11-20] MEDS ORDERED: Sodium Bicarbonate 2.5 MEQ/5 ML VIAL ONE (10:41)
[2017-11-20] MEDS ORDERED: Fentanyl 100 MCG/2 ML VIAL ONE (10:41)
--- NOTE | 2017-11-20 12:18 | CT ---
CT GUIDED PERCUTANEOUS BIOPSY OF A MASS IN LEFT HEPATIC LOBE: DATE: 11/20/17. HISTORY: Patient with multiple hepatic and splenic lesions as well as aortocaval lymphadenopathy and findings suggesting metastatic disease based on prior imaging findings. Biopsy of a hepatic lesion was reques saeed. TECHNIQUE: After informed consent was obtained, the patient was placed on the CT scan table in supine position. A limited noncontrasted CT scan was obtained through the liver with grid localizer in place overlyin g the left hepatic lobe. An area was marked and then meticulously prepped and draped in the usual sterile fashion. The skin a nd subcutaneous tissues were infiltrated with buffered 1% Lidocaine for local anesthesia. A small sk in incision was made. A 17 gauge guide needle was advanced followed by [address] images . This was repeated until the tip of the needle was placed just within the largest mass within the l ateral segment left hand lobe. Utilizing coaxial technique, a total of three 18-gauge core needle biopsy specimens were obtained. T he inner stylette was replaced, and the needle was removed. Hemostasis was achieved with direct pres sure. Noncontrasted CT images obtained post biopsy demonstrate no perihepatic fluid in region of bio psy and no findings to suggest hemorrhage. A dry sterile dressing was placed at needle puncture site. The patient tolerated the procedure well and without immediate complication. The patient was transported to his hospital room in stable condi tion. IMPRESSION: Technically successful CT-guided percutaneous biopsy of a left hepatic lobe mass. Pathology is curre ntly pending at this time. POS: [facility]
--- NOTE | 2017-11-20 17:12 | PDOC.GSPN ---
Surgery Progress Note: Subj - Subjective Narrative: Patient states that he is feeling better now since he has gotten to eat. He is eating lunch without problems. He has a little more alert today. His family states that he has not complained of any pain. No nausea or vomiting. White count is still elevated at around 20,000. He has not had any fevers. I discussed his CT and HIDA scan results with the radiologist today. The gallbladder was quite contracted and the radiologist does not feel that he could place a drain into the gallbladder, although potentially he could aspirate it. However it does not appear to have much fluid in it. Assessment/plan: With extensive metastatic disease of unknown primary. He has an elevated white count and findings on CT that are suggestive of cholecystitis. His head did not show any visualization of the gallbladder. I'm not convinced that he actually has acute cholecystitis. This could represent cystic duct obstruction obstruction due to his extensive cancer in the octavio hepatis. He does have right upper quadrant tenderness but this could also be due to his extensive tumor burden in that area. He is not having pain or fever. At this point I recommend continuing with antibiotics. If he worsens then radiology can attempt to aspirate his gallbladder for Gram stain and culture, but he is not really a surgical candidate and they do not feel they could successfully place a drain either due to the contracted nature of his gallbladder. Surgery Progress Note: Obj - Vital signs Vital signs: Vital Signs - Most Recent Temp Pulse Resp BP Pulse Ox 97.8 F 76 20 90/61 96 11/20/17 16:15 11/20/17 16:15 11/20/17 16:15 11/20/17 16:15 11/20/17 16:15 Surgery Progress Note: Results - Labs Result Diagrams: 11/20/17 04:58 11/20/17 04:57 Lab results: Laboratory Results - last 24 hr 11/20/17 11/20/17 11/20/17 04:57 04:57 04:58 WBC 20.6 H RBC 5.54 Hgb 15.5 Hct 48.2 MCV 87.0 MCH 28.0 MCHC 32.1 RDW 15.2 H Plt Count 333 MPV 7.0 L Neutrophils % (Manual) 78 H Band Neuts % (Manual) 10 Lymphocytes % (Manual) 3 L Monocytes % (Manual) 8 Eosinophils % (Manual) 1 Sodium 129 L Potassium 5.3 H Chloride 96 L Carbon Dioxide 23 Anion Gap 15 BUN 46 H Creatinine 1.35 H Estimated GFR (MDRD) 52 Glucose 79 L Calcium 12.0 H Total Bilirubin 9.3 H AST 249 H ALT 173 H Alkaline Phosphatase 687 H Lactate Dehydrogenase 517 H Serum Total Protein 5.2 L Albumin 2.9 L Globulin 2.3 L Albumin/Globulin Ratio 1.3 Carcinoembryonic Ag 11/20/17 04:58 WBC RBC Hgb Hct MCV MCH MCHC RDW Plt Count MPV Neutrophils % (Manual) Band Neuts % (Manual) Lymphocytes % (Manual) Monocytes % (Manual) Eosinophils % (Manual) Sodium Potassium Chloride Carbon Dioxide Anion Gap BUN Creatinine Estimated GFR (MDRD) Glucose Calcium Total Bilirubin AST ALT Alkaline Phosphatase Lactate Dehydrogenase Serum Total Protein Albumin Globulin Albumin/Globulin Ratio Carcinoembryonic Ag 5.71 H
[2017-11-20] MEDS: cefTRIAXone\\ROCEPHIN 1 GM, Syringe 0.4 ML in Sterile Water 9.6 ML SLOW IVP SCH (17:27)
[2017-11-21 06:29] LABS: ALT (SGPT) 153 U/L (8-55); AST (SGOT) 221 U/L (5-34); Albumin 2.6 g/dL (3.4-4.8); Alkaline Phosphatase 600 U/L (40-150); Anion Gap 15 mmol/L (10-20); BUN (Urea Nitrogen) 53 mg/dL (8.4-25.7); Bilirubin, Total 9.7 mg/dL (0.2-1.2); Calc. Creatinine Clearance 61 mL/min (70-130); Carbon Dioxide 21 mmol/L (23-31); Chloride 97 mmol/L (98-107); Estimated GFR-MDRD 54; Globulin 2.1 g/dL (2.4-3.5); Glucose 79 mg/dL (80-115); Potassium 5.4 mmol/L (3.5-5.1); Protein, Total 4.7 g/dL (5.8-8.1); Sodium 128 mmol/L (136-145)
[2017-11-21 06:43] LABS: Band 6 % (5-11); Hemoglobin 14.5 g/dL (14.0-18.0); Lymphocytes 2 % (21-51); MDiff Complete? YES; Mean Corpuscular Hemoglobin 28.7 pg (27.0-31.0); Mean Corpuscular Volume 86.8 fl (80.0-94.0); Mean Platelet Volume 7.2 fL (7.4-10.4); Monocytes 12 % (0-10); Neutrophil 80 % (42-75); Platelet Count 315 thou/uL (130-400); RBC Distribution Width 15.5 % (11.5-14.5); Red Blood Cell (RBC) Count 5.07 mill/uL (4.70-6.10); Target Cells SLIGHT = 2-5 cells (100X) (0-1/hpf); White Blood Cell (WBC) Count 23.2 thou/uL (4.8-10.8)
[2017-11-21] MEDS: Famotidine 20 MG TAB PO SCH (09:03)
[2017-11-21] MEDS: Sodium Chloride 0.9% 1,000 ML IV SCH (12:52)
--- NOTE | 2017-11-21 12:55 | NM ---
NUCLEAR MEDICINE BONE SCAN: HISTORY: Metastatic cancer. COMPARISON: CT from 11/08/2017. TECHNIQUE: Whole body planar imaging, three-hour delayed, after the intravenous administration of 33 millicuries of technetium 99m MDP, was performed. FINDINGS: Both kidneys and urinary bladder are visualized. Degenerative changes of both knee joints. No evide nce for abnormal increased radiotracer uptake. No focal osteopenia. Increased uptake within the left distal tibia, as well as of the calcaneus, talus, and mid foot. IMPRESSION: 1. No evidence for osseous metastatic disease. 2. Degenerative changes of left hindfoot may represent arthrodesis. POS: [facility]
--- NOTE | 2017-11-21 15:03 | PDOC.GSPN ---
Surgery Progress Note: Subj - Subjective Narrative: Patient states that he is feeling okay. He denies abdominal pain. He states that when he eats too fast it tends to go down the wrong pipe. His friend at the bedside states that the patient was complaining of pain in his throat with swallowing earlier. He is passing gas. Afebrile although his white count remains elevated. Vital signs okay. Bone scan negative. Biopsy results still pending. Bilirubin continues to slowly climb and is primarily direct. His abdomen is slightly distended. He states he is a little tender to palpation in the left lower quadrant. He denies tenderness elsewhere but does wince a little bit with palpation in the epigastrium. Assessment/plan: Awaiting biopsy results. Patient is extremely frail. I did ask gastroenterology to see him, to see if he is a candidate for palliative ERCP and stenting. There was minimal passage of tracer into his duodenum on HIDA scan. He may also be having some gastric emptying issues, so I recommended frequent small snacks and supplements between meals. The patient also made a comment to me as I was leaving that makes me suspect he is intermittently hallucinating or confused; he asked me if that was my dog he has been seeing around the place. However, he then back tracked from that comment. He seemed to be answering questions appropriately earlier in the conversation although he tired out quickly and I often had to repeat the question. I believe his gallbladder is obstructed, but he is not a candidate for laparoscopic cholecystectomy or for percutaneous drain placement. I suspect that aspiration of his gallbladder would be negative and that the inflammatory changes seen on CT scan are likely due to obstruction rather than infection. At this point his clinical status is so tenuous that I wouldn't recommend CT-guided aspiration as the risks likely outweigh the benefit. It is unclear whether he will tolerate any chemotherapy regardless of the biopsy results. Hospice may be the most suitable option. Surgery Progress Note: Obj - Vital signs Vital signs: Vital Signs - Most Recent Temp Pulse Resp BP Pulse Ox 97.2 F L 85 22 H 108/61 93 L 11/21/17 11:41 11/21/17 11:41 11/21/17 11:41 11/21/17 11:41 11/21/17 11:41 Surgery Progress Note: Results - Labs Result Diagrams: 11/21/17 05:26 11/21/17 05:26 Lab results: Laboratory Results - last 24 hr 11/20/17 11/21/17 11/21/17 04:58 05:26 05:26 WBC 23.2 H RBC 5.07 Hgb 14.5 Hct 44.0 MCV 86.8 MCH 28.7 MCHC 33.0 RDW 15.5 H Plt Count 315 MPV 7.2 L Neutrophils % (Manual) 80 H Band Neuts % (Manual) 6 Lymphocytes % (Manual) 2 L Monocytes % (Manual) 12 H Target Cells SLIGHT = 2-5 cells Sodium 128 L Potassium 5.4 H Chloride 97 L Carbon Dioxide 21 L Anion Gap 15 BUN 53 H Creatinine 1.32 H Estimated GFR (MDRD) 54 Glucose 79 L Calcium 11.0 H Total Bilirubin 9.7 H Direct Bilirubin AST 221 H ALT 153 H Alkaline Phosphatase 600 H Serum Total Protein 4.7 L Albumin 2.6 L Globulin 2.1 L Albumin/Globulin Ratio 1.2 CA 19-9 Antigen 592 H 11/21/17 05:26 WBC RBC Hgb Hct MCV MCH MCHC RDW Plt Count MPV Neutrophils % (Manual) Band Neuts % (Manual) Lymphocytes % (Manual) Monocytes % (Manual) Target Cells Sodium Potassium Chloride Carbon Dioxide Anion Gap BUN Creatinine Estimated GFR (MDRD) Glucose Calcium Total Bilirubin Direct Bilirubin 7.5 H AST ALT Alkaline Phosphatase Serum Total Protein Albumin Globulin Albumin/Globulin Ratio CA 19-9 Antigen
--- NOTE | 2017-11-21 15:51 | PDOC.PN ---
- Subjective Encounter Start Date: 11/21/17 Encounter Start Time: 16:44 Subjective: No new complaints. -: No acute events overnight. - Objective Resuscitation Status: Resuscitation Status DNR:Do Not Resuscitate MAR Reviewed: Yes Vital Signs & Weight: Vital Signs (12 hours) Temp Pulse Resp BP Pulse Ox 11/21/17 11:41 97.2 F L 85 22 H 108/61 93 L 11/21/17 08:00 97.2 F L 85 22 H 11/21/17 07:34 97.6 F 82 20 102/55 L 94 L 11/21/17 04:00 97.4 F L 78 16 116/60 94 L Weight Admit Weight 179 lb 14.4 oz Weight 179 lb 14.4 oz I&O: 11/20/17 11/21/17 11/22/17 06:59 06:59 06:59 Intake Total 1300 2739.6 Output Total 450 350 Balance 850 2389.6 Result Diagrams: 11/21/17 05:26 11/21/17 05:26 Phys Exam - Physical Examination Constitutional: NAD HEENT: PERRLA, moist MMs, TM's clear Icteric Neck: no JVD, supple, full ROM Respiratory: no wheezing, no rales, no rhonchi, clear to auscultation bilateral Cardiovascular: RRR, no significant murmur, no rub Gastrointestinal: soft mild diffuse tenderness. No rebound or guarding. Musculoskeletal: no edema, pulses present Neurological: non-focal, moves all 4 limbs Psychiatric: normal affect, A&O x 3 Skin: no rash, normal turgor Dx/Plan (1) Abnormal LFTs Code(s): R94.5 - ABNORMAL RESULTS OF LIVER FUNCTION STUDIES Status: Acute Comment: suspecting from liver metastasis, doubt has any acute cholecystitis (2) Acute kidney failure Status: Acute Qualifiers: Acute renal failure type: unspecified Qualified Code(s): N17.9 - Acute kidney failure, unspecified Comment: Gradually improving. Continue IVF, avoid nephrotoxins and monitor renal function. (3) Acute metabolic encephalopathy Code(s): G93.41 - METABOLIC ENCEPHALOPATHY Status: Resolved (4) Bandemia Code(s): D72.825 - BANDEMIA Status: Acute Comment: may be metastasis related , still on empiric antibiotics (5) Hypercalcemia Code(s): E83.52 - HYPERCALCEMIA Status: Resolved Comment: due to paraneuoplastic process (6) Hyperkalemia Code(s): E87.5 - HYPERKALEMIA Status: Acute (7) Hyponatremia Code(s): E87.1 - HYPO-OSMOLALITY AND HYPONATREMIA Status: Acute (8) Lactic acidosis Code(s): E87.2 - ACIDOSIS Status: Acute (9) Metastatic cancer Code(s): C79.9 - SECONDARY MALIGNANT NEOPLASM OF UNSPECIFIED SITE Status: Acute Comment: unknown primary - Plan cont current plan of care, plan discussed w/ family, continue antibiotics, DVT proph w/lovenox Surgery on board- risks outweigh benefits. GI consulted to consider palliative ERCP w stenting. Continue pain control Continue IV antibiotics. Prognosis seems very poor- palliative care will be consulted. f/u biopsy results. Review of Systems - Medications/Allergies Allergies/Adverse Reactions: Allergies Allergy/AdvReac Type Severity Reaction Status Date / Time Sulfa (Sulfonamide Allergy Verified 10/29/17 12:08 Antibiotics) Medications: Current Medications Al Hydroxide/Mg Hydroxide (Maalox) 15 ml PO Q4H PRN PRN Reason: Heartburn or Indigestion Artificial Tears (Tears Naturale) 0 drop EA EYE PRN PRN PRN Reason: Dry Eyes Famotidine (Pepcid) 20 mg PO BID [facility] Last Admin: 11/21/17 09:03 Dose: 20 mg Guaifenesin (Robitussin Sf) 200 mg PO Q4H PRN PRN Reason: Cough Hydralazine HCl (Apresoline) 10 mg SLOW IVP Q4H PRN PRN Reason: Systolic BP > 180 Ceftriaxone Sodium 1 gm/ (Syringe 0.4 ml/ Sterile Water) 10 mls @ 120 mls/hr SLOW IVP Q24HR@1700 [facility] Last Admin: 11/20/17 17:27 Dose: 10 mls Loperamide HCl (Imodium) 2 mg PO PRN PRN PRN Reason: Diarrhea/Loose Stools Loratadine (Claritin) 10 mg PO DAILYPRN PRN PRN Reason: Sinus Symptoms Magnesium Hydroxide (Milk Of Magnesium) 30 ml PO DAILYPRN PRN PRN Reason: Constipation Mineral Oil/White Petrolatum (Eucerin Cream) 0 gm TOP BIDPRN PRN PRN Reason: Dry Skin Morphine Sulfate (Morphine) 2 mg SLOW IVP Q4H PRN PRN Reason: Pain Last Admin: 11/19/17 14:23 Dose: 2 mg Ondansetron HCl (Zofran) 4 mg IVP Q6H PRN PRN Reason: Nausea/Vomiting Last Admin: 11/18/17 19:39 Dose: 4 mg Ondansetron HCl (Zofran Odt) 4 mg SL Q6H PRN PRN Reason: Nausea/Vomiting Phenol (Chloraseptic [place] 180 Ml Bot) 0 ml PO PRN PRN PRN Reason: Sore Throat Senna (Senokot) 2 tab PO HSPRN PRN PRN Reason: Constipation Sodium Chloride ([place] Nasal [place] 0.65%) 0 ml EA NARE QIDPRN PRN PRN Reason: Nasal Congestion
[2017-11-21] MEDS: cefTRIAXone\\ROCEPHIN 1 GM, Syringe 0.4 ML in Sterile Water 9.6 ML SLOW IVP SCH (18:11)
--- NOTE | 2017-11-22 02:31 | CON ---
DATE OF CONSULTATION: 11/21/2017 HISTORY OF PRESENT ILLNESS: Mr. Montelongo is a 67-year-old, most of the history comes from the faustina borrego's chart. ____ patient's family and reviewing his chart. Mr. Montelongo began feeling ill a few belinda hs ago. He had normal liver function tests at that time. Ultimately, he returned on 11/18/2017, had a bilirubin of 7.1. He also had a calcium of 14.5, it subsequently has come down to 11. Imaging sh owed multiple liver masses, obstructing left ureteral calculus with no dilatation, large mass posteri or to the pancreatic head, numerous large mesenteric lymph nodes and lymphadenopathy involving the le ft renal vein. Spleen has got met liver lesions in it as well. A biopsy was performed yesterday. Shoshana metz results are pending. I have been asked to see him with regard to the question of whether or not a biliary stent would be effective or helpful. Presently, the patient's family notes he has had alex te a bit of itching and pruritus. Prior to that, he has been pretty healthy. He has had dark urine for a week or two, but has been sick for 4-5 months since he hurt his knee. He has lost quite a bit of weight with anorexia. He has had some nausea, but no vomiting. Apparently, he has had some dark bowel movements as well. He denies any fever or chills or rigors. PAST MEDICAL HISTORY: Hypertension, obstructive renal stone in the past, lithotripsy in the past. MEDICATIONS AT HOME: Lisinopril. ALLERGIES: SULFA. FAMILY HISTORY: Mother and father both . SOCIAL HISTORY: The patient's just recently. His daughter, Margaret, is here at the bedside. He drinks occasionally, does not smoke. The patient is DNR at this point in time. PHYSICAL EXAMINATION: VITAL SIGNS: Temperature is 97.2, pulse 77, blood pressure 107/63. GENERAL: The patient is mildly confused. He opens his eyes, it is icteric. LUNGS: Clear. HEART: Regular rate and rhythm without clicks or murmurs. ABDOMEN: Soft and nontender. There is mild tenderness in the right upper quadrant with palpation. NEUROLOGIC: There is no asterixis. EXTREMITIES: There is mild edema in the right arm. MEDICATIONS HERE: He is on Maalox, Rocephin, Lovenox, Pepcid, Robitussin, Apresoline, Imodium, Renetta tin, milk of magnesia, morphine, Zofran, Chloraseptic, and Senokot. LABORATORY STUDIES: Sodium 128, potassium 5.4, BUN and creatinine are 53 and 1.32, calcium 11, bilir ubin is 9.7, AST and ALT are 221 and 153 with alkaline phosphatase of 600, albumin is 2.4, protein is 4.7, CA 19-9 is 592. CEA is 5.7. Liver imaging reviewed with Radiology. Pathology is pending. Beto ne scan was negative. ASSESSMENT: 1. Illness for 3-4 months now with cholestatic LFTs and masses throughout the liver and spleen, mai opathy in the upper abdomen and questionable mass upon the pancreatic head and elevated CA 19-9. I w ould favor a primary cholangio or pancreatic malignancy, gastric cancer would be also a possibility. Biopsies are pending. 2. With regard to the patient's icterus, this could be from replacement of his liver or from biliary obstruction. The radiologist does note that the significant biliary obstruction seems to be taperin g in the region of the head of the pancreas. There seems to be significant common and intrahepatic d uctal dilatation. PLAN: At this time, we will change his antibody to Levaquin, Rocephin ____ better coverage in terms of the enterococcus. We would go ahead and get INR and ammonia level tomorrow. If his INR is worsen ing, I would think that his liver enzyme elevation is more from fulminant liver failure from replacem ent of tumor. If it is not unstable, probably obstruction is more of the etiology and it may be bene ficial to proceed with ERCP and stent. From the standpoint of biliary drainage for chemotherapy and for palliation of pruritus. The only thing that hold me back on something like that as if the patien t's family or the patient will decide to consider hospice care instead of any therapy at all. We marla l discuss this with him again tomorrow. Hopefully, once the biopsies are back, repeat his labs in above noted orders.
[2017-11-22 04:03] LABS: #Eosinphils 0.1 thou/uL (0.0-0.7); #Lymphocytes 1.7 thou/uL (1.20-3.40); #Monocytes 2.1 thou/uL (0.11-0.59); #Neutrophils 19.6 thou/uL (1.40-6.50); %Basophils 0.1 % (0.0-1.0); %Eosinophils 0.3 % (0.0-10.0); %Lymphocytes 7.2 % (21.0-51.0); %Neutrophils 83.4 % (42.0-75.0); Hemoglobin 14.1 g/dL (14.0-18.0); Mean Corpuscular HGB CONC 32.7 g/dL (32.0-36.0); Mean Corpuscular Hemoglobin 28.5 pg (27.0-31.0); Mean Corpuscular Volume 87.2 fl (80.0-94.0); Mean Platelet Volume 7.3 fL (7.4-10.4); Platelet Count 277 thou/uL (130-400); RBC Distribution Width 15.8 % (11.5-14.5); Red Blood Cell (RBC) Count 4.95 mill/uL (4.70-6.10); White Blood Cell (WBC) Count 23.5 thou/uL (4.8-10.8)
[2017-11-22 04:09] LABS: INR-International Normal Ratio 1.2; Prothrombin Time 15.1 SEC (12.0-14.7)
[2017-11-22 04:18] LABS: ALT (SGPT) 139 U/L (8-55); AST (SGOT) 203 U/L (5-34); Albumin 2.4 g/dL (3.4-4.8); Alkaline Phosphatase 568 U/L (40-150); Bilirubin, Direct 8.3 mg/dL (0.1-0.3); Bilirubin, Total 10.1 mg/dL (0.2-1.2); Protein, Total 4.3 g/dL (5.8-8.1)
[2017-11-22 04:19] LABS: ALT (SGPT) 142 U/L (8-55); AST (SGOT) 207 U/L (5-34); Albumin 2.5 g/dL (3.4-4.8); Alkaline Phosphatase 573 U/L (40-150); Anion Gap 17 mmol/L (10-20); BUN (Urea Nitrogen) 58 mg/dL (8.4-25.7); Bilirubin, Total 10.3 mg/dL (0.2-1.2); Calc. Creatinine Clearance 61 mL/min (70-130); Calcium 10.5 mg/dL (7.8-10.44); Carbon Dioxide 18 mmol/L (23-31); Chloride 97 mmol/L (98-107); Estimated GFR-MDRD 53; Globulin 1.8 g/dL (2.4-3.5); Glucose 91 mg/dL (80-115); Potassium 5.2 mmol/L (3.5-5.1); Protein, Total 4.3 g/dL (5.8-8.1); Sodium 127 mmol/L (136-145)
[2017-11-22] MEDS ORDERED: Fentanyl 100 MCG/2 ML VIAL ONE (10:29)
[2017-11-22] MEDS ORDERED: Iothalamate Meglumine 60% 50 ML VIAL FS ONE (10:56)
[2017-11-22] MEDS ORDERED: Indomethacin 50 MG SUPP ONE (10:56)
[2017-11-22] MEDS ORDERED: PHENYLEPHRINE-NS 100 MCG/ML 10 ML SYRINGE ONE (11:24)
[2017-11-22] MEDS ORDERED: Glycopyrrolate 0.2 MG/ML 5 ML SYRINGE ONE (11:24)
[2017-11-22] MEDS ORDERED: PROPOFOL 200 MG/20 ML VIAL ONE (11:24)
[2017-11-22] MEDS ORDERED: Lidocaine 1% PF 5 ML VIAL ONE (11:24)
[2017-11-22] MEDS ORDERED: SUGAMMADEX SODIUM 200 MG/2 ML VIAL ONE (12:24)
[2017-11-22] MEDS ORDERED: Albuterol Sulfate 1.25 MG/3 ML NEB ONE (12:29)
[2017-11-22] MEDS ORDERED: Sodium Chloride For Inhalation 0.9% 3 ML NEB ONE (12:29)
--- NOTE | 2017-11-22 12:53 | OP ---
DATE OF PROCEDURE: 11/22/2017 PROCEDURE PERFORMED: Endoscopic retrograde cholangiopancreatography with sphincterotomy and biliary stent placement. INDICATIONS FOR PROCEDURE: Probable biliary obstruction, common bile duct stricture. ASSISTING PHYSICIAN: Marshal Schmidt M.D. DESCRIPTION OF PROCEDURE: After the risks and benefits of the procedure were explained to the patien t including risks of bleeding, infection, perforation, reactions to anesthesia, pain and/or post-ERCP pancreatitis, informed consent was obtained. The patient was then taken to the endoscopy suite wher e general anesthesia was administered with endotracheal intubation via anesthesia support. Once the patient was in adequate position, the standard duodenal scope was then introduced into the mouth with intubation of the esophagus, stomach and the proximal small intestine with the findings listed below . The patient tolerated the procedure well with no immediate perioperative complications. FINDINGS: EGD: Limited views were obtained of the esophagus, stomach and proximal small intestine, the mucosa seen during the examination. Normal appearing mucosa was seen in the esophagus and stomach. However , edematous mucosa was seen in the distal duodenal bulb as well as the duodenal sweep, along with a p ossible ulceration at the duodenal sweep and friability with passage of the duodenal scope and minima l amount of bleeding seen. ERCP: Once the ampulla was visualized in the proximal small intestine using the sphincterotomy, the ampulla was successfully cannulated. Cholangiogram obtained initially showed a stricture of the dist al common bile duct, measuring approximately 4-5 cm in length. Cholangiography of the proximal commo n bile duct did not reveal any additional strictures with good visualization of the intrahepatic syst em of the liver. Using a sphincterotome, a generous sphincterotomy was then performed with minimal a mount of bleeding from this particular portion of the procedure. Then, using an exchange protocol, a 7 cm, 11.5-Kosovan biliary stent was then advanced through the duodenoscope and into the distal commo n bile duct. Using fluoroscopy, the stent was then advanced into place with the outer flange noted a butting the mucosa next to the ampulla afterwards. No brushings were obtained during this particular procedure and gilbert bile was seen emanating from the biliary stent after its placement. All equipm ents were then removed from the patient and the procedure terminated. IMPRESSION: 1. Edematous and friable mucosa seen in the duodenal bulb and duodenal sweep consistent with a concu rrent diagnosis of metastatic disease. 2. Successful sphincterotomy and placement of a 7 cm, 11.5-Kosovan biliary stent in the distal common bile duct. RECOMMENDATIONS: 1. Follow up with the primary inpatient team. 2. We would continue to trend LFTs daily. 3. Continue to monitor clinically for any signs of post-ERCP pancreatitis. 4. Continue with antibiotic therapy as you are doing. 5. We will follow up on the liver biopsy results that would further guide therapy. We will continue to follow. Please call with any questions.
[2017-11-22] MEDS ORDERED: Ondansetron HCl/PF 4 MG/2 ML Vial IVP PRN (13:04)
[2017-11-22] MEDS ORDERED: Promethazine HCl 25 MG/ML VIAL SLOW IVP PRN (13:04)
[2017-11-22] MEDS ORDERED: Promethazine HCl 25 MG/ML VIAL IM PRN (13:04)
[2017-11-22 13:26] LABS: A/G Ratio 0.9 (0.7-1.7); Albumin 2.3 g/dL (2.9-4.4); Alpha 1 0.4 g/dL (0.0-0.4); Alpha 2 0.8 g/dL (0.4-1.0); Beta 0.9 g/dL (0.7-1.3); Gamma 0.4 g/dL (0.4-1.8); Globulin, Total 2.5 g/dL (2.2-3.9); M-Spike Not Observed g/dL (Not Observed); Protein Electrophoresis Intrp Note: (.)
--- NOTE | 2017-11-22 14:21 | RAD ---
ERCP: Date: 11-22-17 Comparison: None. History: ERCP. Recent CT examination demonstrated extensive neoplastic disease within the upper abdomen. FINDINGS: Three images are provided. The initial image demonstrates linear contrast media in the expected locat ion of the CBD which is dilated superiorly and markedly irregular in its mid and distal portions, savanna picious for either direct neoplastic change or extrinsic compression on the basis of adjacent mass le sions. Second and third images demonstrate a stent in the expected location of the CBD. IMPRESSION: ERCP imaging as detailed above. POS: MILENA
[2017-11-22] MEDS: Enoxaparin Sodium 30 MG/0.3 ML SYRINGE SC SCH (14:43)
[2017-11-22] MEDS: Pantoprazole 40 MG VIAL IVP SCH (14:43)
--- NOTE | 2017-11-22 16:06 | PDOC.PN ---
- Subjective Encounter Start Date: 11/22/17 Encounter Start Time: 16:11 Subjective: No new complaints. -: No acute events overnight. - Objective Resuscitation Status: Resuscitation Status DNR:Do Not Resuscitate MAR Reviewed: Yes Vital Signs & Weight: Vital Signs (12 hours) Temp Pulse Resp BP Pulse Ox 11/22/17 14:50 97.5 F L 80 24 H 95/60 94 L 11/22/17 14:20 97.5 F L 81 24 H 109/63 92 L 11/22/17 14:05 97.4 F L 81 24 H 101/58 L 93 L 11/22/17 08:34 97.7 F 88 24 H 101/57 L 96 11/22/17 08:00 97.7 F 88 24 H 88 L Weight Admit Weight 179 lb 14.4 oz Weight 179 lb 14.4 oz I&O: 11/21/17 11/22/17 11/23/17 06:59 06:59 06:59 Intake Total 2739.6 650 Output Total 350 550 Balance 2389.6 100 Result Diagrams: 11/22/17 03:52 11/22/17 03:52 Phys Exam - Physical Examination Constitutional: NAD HEENT: PERRLA, moist MMs, oral pharynx no lesions icteric Neck: no JVD, supple, full ROM Respiratory: no wheezing, no rales, no rhonchi, clear to auscultation bilateral Cardiovascular: RRR, no significant murmur, no rub Gastrointestinal: soft, non-tender, no distention, positive bowel sounds Musculoskeletal: no edema Neurological: non-focal, moves all 4 limbs Psychiatric: normal affect, A&O x 3 Skin: no rash, normal turgor Dx/Plan (1) Abnormal LFTs Code(s): R94.5 - ABNORMAL RESULTS OF LIVER FUNCTION STUDIES Status: Acute Comment: Scheduled for sphincterotomy. Will trend. (2) Acute kidney failure Status: Acute Qualifiers: Acute renal failure type: unspecified Qualified Code(s): N17.9 - Acute kidney failure, unspecified Comment: Creatinine stable around 1.3. Will avoid nephrotoxins and monitor renal function. (3) Acute metabolic encephalopathy Code(s): G93.41 - METABOLIC ENCEPHALOPATHY Status: Resolved (4) Bandemia Code(s): D72.825 - BANDEMIA Status: Acute Comment: may be metastasis related , still on empiric antibiotics (5) Hypercalcemia Code(s): E83.52 - HYPERCALCEMIA Status: Resolved Comment: due to paraneuoplastic process (6) Hyperkalemia Code(s): E87.5 - HYPERKALEMIA Status: Acute (7) Hyponatremia Code(s): E87.1 - HYPO-OSMOLALITY AND HYPONATREMIA Status: Acute (8) Lactic acidosis Code(s): E87.2 - ACIDOSIS Status: Acute (9) Metastatic cancer Code(s): C79.9 - SECONDARY MALIGNANT NEOPLASM OF UNSPECIFIED SITE Status: Acute Comment: unknown primary - Plan cont current plan of care, plan discussed w/ family, continue antibiotics, out of bed/ambulate, DVT proph w/lovenox Continue antibiotics. -: Sphincetrotomy today -: Ensure adequate pain control -: Prognosis poor- dispo depends on liver biopsy results -: Daily LFTs. * . Review of Systems - Medications/Allergies Allergies/Adverse Reactions: Allergies Allergy/AdvReac Type Severity Reaction Status Date / Time Sulfa (Sulfonamide Allergy Verified 10/29/17 12:08 Antibiotics) Medications: Current Medications Al Hydroxide/Mg Hydroxide (Maalox) 15 ml PO Q4H PRN PRN Reason: Heartburn or Indigestion Artificial Tears (Tears Naturale) 0 drop EA EYE PRN PRN PRN Reason: Dry Eyes Enoxaparin Sodium (Lovenox) 30 mg SC 0900 [facility] Last Admin: 11/22/17 14:43 Dose: 30 mg Guaifenesin (Robitussin Sf) 200 mg PO Q4H PRN PRN Reason: Cough Hydralazine HCl (Apresoline) 10 mg SLOW IVP Q4H PRN PRN Reason: Systolic BP > 180 Levofloxacin 500 mg/ Device 100 mls @ 100 mls/hr IVPB 2100 [facility] Last Admin: 11/21/17 21:15 Dose: 100 mls Loperamide HCl (Imodium) 2 mg PO PRN PRN PRN Reason: Diarrhea/Loose Stools Loratadine (Claritin) 10 mg PO DAILYPRN PRN PRN Reason: Sinus Symptoms Magnesium Hydroxide (Milk Of Magnesium) 30 ml PO DAILYPRN PRN PRN Reason: Constipation Mineral Oil/White Petrolatum (Eucerin Cream) 0 gm TOP BIDPRN PRN PRN Reason: Dry Skin Morphine Sulfate (Morphine) 2 mg SLOW IVP Q4H PRN PRN Reason: Pain Last Admin: 11/19/17 14:23 Dose: 2 mg Ondansetron HCl (Zofran) 4 mg IVP Q6H PRN PRN Reason: Nausea/Vomiting Last Admin: 11/18/17 19:39 Dose: 4 mg Ondansetron HCl (Zofran Odt) 4 mg SL Q6H PRN PRN Reason: Nausea/Vomiting Pantoprazole Sodium (Protonix) 40 mg IVP DAILY WENDI Last Admin: 11/22/17 14:43 Dose: 40 mg Phenol (Chloraseptic Hamilton 180 Ml Bot) 0 ml PO PRN PRN PRN Reason: Sore Throat Senna (Senokot) 2 tab PO HSPRN PRN PRN Reason: Constipation Sodium Chloride (Sarpy Nasal Hamilton 0.65%) 0 ml EA NARE QIDPRN PRN PRN Reason: Nasal Congestion Sodium Chloride (Flush - Normal Saline) 10 ml IVF PRN PRN PRN Reason: Saline Flush Sodium Chloride (Flush - Normal Saline) 10 ml IVF PRN PRN PRN Reason: Saline Flush
[2017-11-22] MEDS ORDERED: Sodium Chloride 0.9% 1,000 ML IV SCH (17:30)
[2017-11-22] MEDS: Sodium Chloride 0.9% 1,000 ML IV SCH (18:32)
[2017-11-22] MEDS ORDERED: methylPREDNISolone Sod Succ 1,000 MG in Sodium Chloride 0.9% 250 ML 250 ML IVPB SCH (20:00)
[2017-11-22] MEDS ORDERED: methylPREDNISolone Sod Succ 1,000 MG in Sodium Chloride 0.9% 100 ML IVPB SCH (20:00)
--- NOTE | 2017-11-22 22:47 | PRG ---
DATE OF SERVICE: 11/22/2017 SUBJECTIVE: I had several conversations on daily basis with the pathologist. Today, I was notified by Dr. Santos that the patient has large cell diffuse lymphoma. Tissue has been sent for molecular florian dies. Meanwhile, the patient's liver function seems to have deteriorated with his bilirubin of 10.1, most of the direct bilirubin. His liver enzymes are also elevated. Serum creatinine is 1.33 with e stimated GFR of 53. I had a very long conversation with the patient's daughter, ex- and sister. The patient himself was not really able to participate in the discussion as he was not alert and tomasa ented. We discussed the option of comfort care versus chemotherapy directed towards lymphoma. It wa s explained to the family that the patient cannot receive the usual chemotherapy that is given for ly mphoma because of his liver failure. For now, I am considering giving him Solu-Medrol tonight and po ssibly reduction and reduce dose Cytoxan tomorrow. I am hoping his liver test might get better becau se he had ERCP and stenting of the biliary tree. I will start him on allopurinol tonight and follow his uric acid levels. The side effects including the fevers, chills, hypotension and wheezing induce d by reduction were discussed with the family. The family is willing to try whatever chemotherapy. the patient can take. We also agreed to keep the patient DNR.
[2017-11-22] MEDS ORDERED: Allopurinol 300 MG TAB PO SCH (23:00)
[2017-11-23] MEDS: Sodium Chloride 0.9% 1,000 ML IV SCH ×2 (05:01→20:35)
[2017-11-23 06:07] LABS: ALT (SGPT) 120 U/L (8-55); AST (SGOT) 174 U/L (5-34); Albumin 2.4 g/dL (3.4-4.8); Alkaline Phosphatase 490 U/L (40-150); Bilirubin, Direct 5.1 mg/dL (0.1-0.3); Bilirubin, Total 6.1 mg/dL (0.2-1.2); Lipase 40 U/L (8-78); Protein, Total 4.3 g/dL (5.8-8.1); Uric Acid 9.3 mg/dL (3.5-7.2)
[2017-11-23 06:08] LABS: ALT (SGPT) 119 U/L (8-55); AST (SGOT) 170 U/L (5-34); Albumin 2.3 g/dL (3.4-4.8); Alkaline Phosphatase 475 U/L (40-150); Anion Gap 16 mmol/L (10-20); BUN (Urea Nitrogen) 70 mg/dL (8.4-25.7); Bilirubin, Total 6.1 mg/dL (0.2-1.2); Calc. Creatinine Clearance 40 mL/min (70-130); Calcium 9.5 mg/dL (7.8-10.44); Carbon Dioxide 17 mmol/L (23-31); Chloride 100 mmol/L (98-107); Estimated GFR-MDRD 33; Globulin 2.1 g/dL (2.4-3.5); Glucose 113 mg/dL (80-115); Potassium 6.1 mmol/L (3.5-5.1); Protein, Total 4.4 g/dL (5.8-8.1); Sodium 127 mmol/L (136-145)
[2017-11-23 06:18] LABS: Hemoglobin 13.4 g/dL (14.0-18.0); Mean Corpuscular HGB CONC 32.5 g/dL (32.0-36.0); Mean Corpuscular Hemoglobin 28.2 pg (27.0-31.0); Mean Corpuscular Volume 86.8 fl (80.0-94.0); Mean Platelet Volume 7.7 fL (7.4-10.4); Platelet Count 284 thou/uL (130-400); RBC Distribution Width 16.1 % (11.5-14.5); Red Blood Cell (RBC) Count 4.74 mill/uL (4.70-6.10); White Blood Cell (WBC) Count 16.2 thou/uL (4.8-10.8)
[2017-11-23 06:38] LABS: Band 10 % (5-11); Lymphocytes 3 % (21-51); MDiff Complete? YES; Metamyelocyte 2 % (0-0); Monocytes 2 % (0-10); Neutrophil 83 % (42-75); PLT Morphology Comment Appears Adequate
--- NOTE | 2017-11-23 07:39 | PDOC.PN ---
- Subjective Encounter Start Date: 11/23/17 Encounter Start Time: 07:38 Mr. Montelongo is more alert this morning. He was able to answer a few questions, and says he is not in pain, no nausea. - Objective Resuscitation Status: Resuscitation Status DNR:Do Not Resuscitate MAR Reviewed: Yes Vital Signs & Weight: Vital Signs (12 hours) Temp Pulse Resp BP Pulse Ox 11/23/17 07:24 97.8 F 68 20 101/59 L 93 L 11/23/17 04:00 97.6 F 67 16 107/58 L 96 11/22/17 23:31 97.7 F 66 16 102/58 L 97 11/22/17 20:00 97.7 F 66 16 94 L 11/22/17 19:39 97.9 F 68 16 84/54 L 94 L Weight Admit Weight 179 lb 14.4 oz Weight 179 lb 14.4 oz I&O: 11/22/17 11/23/17 11/24/17 06:59 06:59 06:59 Intake Total 650 2980 Output Total 550 100 Balance 100 2880 Result Diagrams: 11/23/17 05:14 11/23/17 05:14 Additional Labs: Accuchecks 11/22/17 16:48 POC Glucose 106 Phys Exam - Physical Examination HEENT: PERRLA Respiratory: no wheezing, no rales, no rhonchi, clear to auscultation bilateral Cardiovascular: RRR, no significant murmur, no rub Gastrointestinal: soft, non-tender, no distention, positive bowel sounds Musculoskeletal: edema present trace pedal edema, and some edema in the upper extremities Dx/Plan (1) Diffuse large B cell lymphoma Code(s): C83.30 - DIFFUSE LARGE B-CELL LYMPHOMA, UNSPECIFIED SITE Status: Acute (2) Acute kidney failure Status: Acute Qualifiers: Acute renal failure type: unspecified Qualified Code(s): N17.9 - Acute kidney failure, unspecified Comment: Creatinine stable around 1.3. Will avoid nephrotoxins and monitor renal function. (3) Hyperkalemia Code(s): E87.5 - HYPERKALEMIA Status: Acute (4) Hyponatremia Code(s): E87.1 - HYPO-OSMOLALITY AND HYPONATREMIA Status: Acute (5) Acute metabolic encephalopathy Code(s): G93.41 - METABOLIC ENCEPHALOPATHY Status: Resolved (6) Hypercalcemia Code(s): E83.52 - HYPERCALCEMIA Status: Resolved Comment: due to paraneuoplastic process - Plan * Large Cell Diffuse Lymphoma, with liver and spleen involvement and obstructive jaundice- patient had ERCP and STENT yesterday with good results. His lipase level was normal, and bilirubin is beginning to trend down * The planis start Cytoxan today * Hyperkalemia- will need to give a dose of Kayexalate * Hyponatremia- ? etiology - continue saline infusion, and will check a urine osmol, and serum osmol with the morning blood draw * Continue Allopurinol for hyperuricemia, and to prevent tunor lysis syndrome * He denies having any pain currently, only when moved according to his X- - he has Morphine if needed * Continue Nutritional support, and supplements as needed
[2017-11-23] MEDS: Pantoprazole 40 MG VIAL IVP SCH (09:11)
[2017-11-23] MEDS: Enoxaparin Sodium 30 MG/0.3 ML SYRINGE SC SCH (09:11)
[2017-11-23] MEDS: Allopurinol 300 MG TAB PO SCH (09:11)
[2017-11-23] MEDS ORDERED: ADMIXTURE FEE IVPB SCH (09:15)
[2017-11-23] MEDS ORDERED: diphenhydrAMINE 50 MG/ML VIAL IVP SCH (09:15)
[2017-11-23] MEDS ORDERED: RITUXIMAB IVPB SCH (09:15)
[2017-11-23] MEDS ORDERED: Acetaminophen 500 MG TAB PO SCH (09:15)
[2017-11-23] MEDS ORDERED: SODIUM CHLORIDE IVPB SCH (09:15)
[2017-11-23] MEDS ORDERED: Hydrocortisone Acetate 25 MG Suppository PR PRN (12:24)
--- NOTE | 2017-11-23 18:40 | PRG ---
DATE OF SERVICE: 11/23/2017 SUBJECTIVE: Mr. Montelongo had ERCP yesterday with stent placement. He is really doing about the randall e. OBJECTIVE: VITAL SIGNS: Temperature is 97.8, blood pressure 96/65, respirations 18, pulse 69. ABDOMEN: Nontender. LABORATORY STUDIES: White count 16.3, hemoglobin 13.4, platelet count 284. Chemistries: Bilirubin has come down from 10-6.1, AST from 203-174, ALT from 139-120, alkaline phosphatase 568-490, BUN and creatinine are 70 and 2.03. Pathology: From the liver biopsy showed B cell lymphoma. ASSESSMENT: 1. 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 2. He did have erosions in the duodenum. May have some malignancy infiltration there. RECOMMENDATIONS: PPIs for ulcer prophylaxis. Agree with treatment of his malignancy. If he needs a stent ongoing, we would re-change in 3 months. Otherwise, if we get disease under control and decre ased the bulk adenopathy, probably the stent can be removed at that time. We will follow from lulu downing. We would like to see him back in 3 months in the office for stent change or removal depending on how he is doing then.
[2017-11-24 05:40] LABS: #Lymphocytes 0.4 thou/uL (1.20-3.40); #Neutrophils 11.4 thou/uL (1.40-6.50); %Basophils 0.2 % (0.0-1.0); %Eosinophils 0.4 % (0.0-10.0); %Monocytes 7.5 % (0.0-10.0); Mean Corpuscular HGB CONC 31.6 g/dL (32.0-36.0); Mean Corpuscular Hemoglobin 27.8 pg (27.0-31.0); Mean Corpuscular Volume 88.1 fl (80.0-94.0); Platelet Count 291 thou/uL (130-400); RBC Distribution Width 16.4 % (11.5-14.5); Red Blood Cell (RBC) Count 4.67 mill/uL (4.70-6.10); White Blood Cell (WBC) Count 12.8 thou/uL (4.8-10.8)
[2017-11-24 05:43] LABS: ALT (SGPT) 109 U/L (8-55); AST (SGOT) 194 U/L (5-34); Albumin 2.4 g/dL (3.4-4.8); Alkaline Phosphatase 408 U/L (40-150); Bilirubin, Direct 3.3 mg/dL (0.1-0.3); Protein, Total 4.2 g/dL (5.8-8.1); Uric Acid 9.1 mg/dL (3.5-7.2)
[2017-11-24 05:44] LABS: ALT (SGPT) 111 U/L (8-55); AST (SGOT) 194 U/L (5-34); Albumin 2.4 g/dL (3.4-4.8); Alkaline Phosphatase 397 U/L (40-150); Anion Gap 17 mmol/L (10-20); BUN (Urea Nitrogen) 92 mg/dL (8.4-25.7); Bilirubin, Total 4.1 mg/dL (0.2-1.2); Calc. Creatinine Clearance 32 mL/min (70-130); Calcium 9.1 mg/dL (7.8-10.44); Carbon Dioxide 16 mmol/L (23-31); Chloride 103 mmol/L (98-107); Estimated GFR-MDRD 26; Globulin 1.8 g/dL (2.4-3.5); Glucose 134 mg/dL (80-115); Protein, Total 4.2 g/dL (5.8-8.1); Sodium 131 mmol/L (136-145)
[2017-11-24] MEDS: Sodium Chloride 0.9% 1,000 ML IV SCH ×2 (06:20→19:11)
[2017-11-24] MEDS: Enoxaparin Sodium 30 MG/0.3 ML SYRINGE SC SCH (10:06)
[2017-11-24] MEDS: Allopurinol 300 MG TAB PO SCH (10:06)
--- NOTE | 2017-11-24 13:14 | PDOC.PN ---
- Subjective Encounter Start Date: 11/24/17 Encounter Start Time: 13:12 Mr. Montelongo was seen today in follow-up of newly diagnosed Large diffuse B- cell lymphoma. He is currently receiving chemotherapy. He notes " a little abdominal discomfort" He denies dyspnea. - Objective Resuscitation Status: Resuscitation Status DNR:Do Not Resuscitate MAR Reviewed: Yes Vital Signs & Weight: Vital Signs (12 hours) Temp Pulse Resp BP Pulse Ox 11/24/17 08:00 97.5 F L 67 18 95 11/24/17 07:31 97.5 F L 67 18 121/65 95 Weight Admit Weight 179 lb 14.4 oz Weight 179 lb 14.355 oz I&O: 11/23/17 11/24/17 11/25/17 06:59 06:59 06:59 Intake Total 2980 1680 Output Total 100 Balance 2880 1680 Result Diagrams: 11/24/17 05:06 11/24/17 05:06 Phys Exam - Physical Examination HEENT: PERRLA Respiratory: no wheezing, no rales, no rhonchi, clear to auscultation bilateral Cardiovascular: RRR, no significant murmur, no rub Gastrointestinal: soft + mild diffuse tenderness, no rebound or guarding Musculoskeletal: no edema Dx/Plan (1) Diffuse large B cell lymphoma Code(s): C83.30 - DIFFUSE LARGE B-CELL LYMPHOMA, UNSPECIFIED SITE Status: Acute (2) Acute kidney failure Status: Acute Qualifiers: Acute renal failure type: unspecified Qualified Code(s): N17.9 - Acute kidney failure, unspecified Comment: Creatinine stable around 1.3. Will avoid nephrotoxins and monitor renal function. (3) Hyperkalemia Code(s): E87.5 - HYPERKALEMIA Status: Acute (4) Hyponatremia Code(s): E87.1 - HYPO-OSMOLALITY AND HYPONATREMIA Status: Acute (5) Acute metabolic encephalopathy Code(s): G93.41 - METABOLIC ENCEPHALOPATHY Status: Resolved (6) Hypercalcemia Code(s): E83.52 - HYPERCALCEMIA Status: Resolved Comment: due to paraneuoplastic process - Plan * Large Diffuse B-cell lymphoma- patient is receiving Rituxan , and tolerating this so far * Obstructive Jaundice- improving after biliary STENT placement * Hyponatremia- consistent with SIADH- will cut back his IV fluids a bit ( he is already not taking much fluid in) * Hypperkalemia- improved .
[2017-11-24] MEDS: Docusate 100 MG CAP PO SCH (20:28)
[2017-11-25] MEDS: Sodium Chloride 0.9% 1,000 ML IV SCH ×3 (05:57→23:39)
[2017-11-25 05:58] LABS: #Basophils 0.1 thou/uL (0.0-0.2); #Eosinphils 0.1 thou/uL (0.0-0.7); #Lymphocytes 1.1 thou/uL (1.20-3.40); #Monocytes 1.5 thou/uL (0.11-0.59); #Neutrophils 13.6 thou/uL (1.40-6.50); %Basophils 0.4 % (0.0-1.0); %Eosinophils 0.3 % (0.0-10.0); %Lymphocytes 6.9 % (21.0-51.0); %Neutrophils 83.5 % (42.0-75.0); Hemoglobin 13.2 g/dL (14.0-18.0); Mean Corpuscular HGB CONC 30.9 g/dL (32.0-36.0); Mean Corpuscular Hemoglobin 27.1 pg (27.0-31.0); Mean Corpuscular Volume 87.9 fl (80.0-94.0); Mean Platelet Volume 8.1 fL (7.4-10.4); Platelet Count 272 thou/uL (130-400); Red Blood Cell (RBC) Count 4.88 mill/uL (4.70-6.10); White Blood Cell (WBC) Count 16.3 thou/uL (4.8-10.8)
[2017-11-25 06:03] LABS: ALT (SGPT) 104 U/L (8-55); AST (SGOT) 132 U/L (5-34); Albumin 2.5 g/dL (3.4-4.8); Alkaline Phosphatase 388 U/L (40-150); Bilirubin, Direct 2.6 mg/dL (0.1-0.3); Bilirubin, Total 3.2 mg/dL (0.2-1.2); Protein, Total 4.3 g/dL (5.8-8.1); Uric Acid 7.9 mg/dL (3.5-7.2)
[2017-11-25 06:08] LABS: ALT (SGPT) 105 U/L (8-55); AST (SGOT) 133 U/L (5-34); Albumin 2.5 g/dL (3.4-4.8); Alkaline Phosphatase 386 U/L (40-150); Anion Gap 18 mmol/L (10-20); BUN (Urea Nitrogen) 87 mg/dL (8.4-25.7); Bilirubin, Total 3.2 mg/dL (0.2-1.2); Calc. Creatinine Clearance 42 mL/min (70-130); Calcium 8.4 mg/dL (7.8-10.44); Carbon Dioxide 14 mmol/L (23-31); Chloride 106 mmol/L (98-107); Estimated GFR-MDRD 35; Globulin 1.9 g/dL (2.4-3.5); Glucose 115 mg/dL (80-115); Potassium 4.8 mmol/L (3.5-5.1); Protein, Total 4.4 g/dL (5.8-8.1); Sodium 133 mmol/L (136-145)
[2017-11-25] MEDS: Docusate 100 MG CAP PO SCH ×2 (09:42→21:29)
[2017-11-25] MEDS: Allopurinol 300 MG TAB PO SCH (09:43)
[2017-11-25] MEDS: Enoxaparin Sodium 30 MG/0.3 ML SYRINGE SC SCH (09:44)
--- NOTE | 2017-11-25 13:00 | PDOC.PN ---
- Subjective Encounter Start Date: 11/25/17 Encounter Start Time: 12:58 Mr. Montelongo was seen today in follow-up. He does not have any new complaints. He denies abdominal pain, no nausea or vomiting - Objective Resuscitation Status: Resuscitation Status DNR:Do Not Resuscitate MAR Reviewed: Yes Vital Signs & Weight: Vital Signs (12 hours) Temp Pulse Resp BP Pulse Ox 11/25/17 07:25 96.5 F L 72 20 136/77 93 L Weight Admit Weight 179 lb 14.4 oz Weight 179 lb 14.355 oz I&O: 11/24/17 11/25/17 11/26/17 06:59 06:59 06:59 Intake Total 1680 1675 Output Total 600 Balance 1680 1075 Result Diagrams: 11/25/17 05:00 11/25/17 05:00 Phys Exam - Physical Examination HEENT: PERRLA Icteric sclera Neck: no nodes Respiratory: no wheezing, no rales, no rhonchi, clear to auscultation bilateral Cardiovascular: RRR, no significant murmur, no rub Gastrointestinal: soft, non-tender, positive bowel sounds Musculoskeletal: edema present 2+ pitting edema Dx/Plan (1) Diffuse large B cell lymphoma Code(s): C83.30 - DIFFUSE LARGE B-CELL LYMPHOMA, UNSPECIFIED SITE Status: Acute (2) Acute kidney failure Status: Acute Qualifiers: Acute renal failure type: unspecified Qualified Code(s): N17.9 - Acute kidney failure, unspecified Comment: Creatinine stable around 1.3. Will avoid nephrotoxins and monitor renal function. (3) Hyperkalemia Code(s): E87.5 - HYPERKALEMIA Status: Acute (4) Hyponatremia Code(s): E87.1 - HYPO-OSMOLALITY AND HYPONATREMIA Status: Acute (5) Acute metabolic encephalopathy Code(s): G93.41 - METABOLIC ENCEPHALOPATHY Status: Resolved (6) Hypercalcemia Code(s): E83.52 - HYPERCALCEMIA Status: Resolved Comment: due to paraneuoplastic process - Plan * Diffuse Large B- cell Lymphoma with Obstructive Jaundice- he has received his first dose of Rituxan. * Acute renal failure- improving * Obstructive jaundice has improved after STENT placement * Encourage oral intake * Disposition as per Oncology.
[2017-11-25] MEDS: Albumin 25% 25 GM/100 ML BOT IVPB SCH ×2 (16:02→23:39)
--- NOTE | 2017-11-25 19:29 | CON ---
DATE OF CONSULTATION: 11/25/2017 CONSULTING PHYSICIAN: Katia Ribera APRN REASON FOR CONSULTATION: Acute kidney injury. REASON FOR ADMISSION: Abdominal pain. HISTORY OF PRESENT ILLNESS: A 67-year-old male with a history of hypertension and metastatic cancer came to the hospital with abdominal pain and anorexia, and was found to have elevated creatinine of 2 .5. It seems like his baseline is around 1 to 1.3, and it was 2.5. Nephrology was consulted. The p atient was started on IV fluids and his creatinine is getting better. The patient is edematous. Com plains of leg edema. No nausea, vomiting. PAST MEDICAL HISTORY: Positive for hypertension and metastatic cancer. PAST SURGICAL HISTORY: Lithotripsy. ALLERGIES: SULFA. HOME MEDICATIONS: Lisinopril. FAMILY HISTORY: No history of any kidney disease. SOCIAL HISTORY: No smoking, alcohol, or drug abuse. REVIEW OF SYSTEMS: The following complete review of systems was negative, unless otherwise mentioned in the HPI or below: Constitutional: Weight loss or gain, ability to conduct usual activities. Skin: Rash, itching. Eyes: Double vision, pain. ENT/Mouth: Nose bleeding, neck stiffness, pain, tenderness. Cardiovascular: Palpitations, dyspnea on exertion, orthopnea. Respiratory: Shortness of breath, wheezing, cough, hemoptysis, fever or night sweats. Gastrointestinal: Poor appetite, abdominal pain, heartburn, nausea, vomiting, constipation, or diarr hea. Genitourinary: Urgency, frequency, dysuria, nocturia. Musculoskeletal: Pain, swelling. Neurologic/Psychiatric: Anxiety, depression. Allergy/Immunologic: Skin rash, bleeding tendency. PHYSICAL EXAMINATION: GENERAL: Reveals a well-built male in no apparent distress. VITAL SIGNS: Temperature 96.5, pulse 72, respiratory rate 20, blood pressure 136/77. HEENT: Atraumatic, normocephalic. Oral mucosa is moist. NECK: Supple. No masses. CARDIOVASCULAR: S1, S2 heard. Rate and rhythm regular. RESPIRATORY: Clear. ABDOMEN: Soft. MUSCULOSKELETAL: 2+ edema. DERMATOLOGIC: No skin rash. NEUROLOGIC: Alert and awake. PSYCHIATRIC: Mood and affect normal. LABORATORY DATA: Hemoglobin is 13.2, potassium is 4.8, BUN is 87, creatinine is 1.9. ASSESSMENT: 1. Acute kidney injury most likely volume depletion. Creatinine is better. The patient is edematou s. Plan is to try some albumin and reduce IV fluids to 50 mL per hour. 2. Hyponatremia. 3. Metabolic acidosis. 4. Mild anemia. 5. Elevated liver enzymes. 6. Hypoalbuminemia. 7. No signs of proteinuria. PLAN: Plan is to reduce IV fluids and continue on albumin as tolerated. We will follow.
[2017-11-26 04:46] LABS: ALT (SGPT) 88 U/L (8-55); AST (SGOT) 105 U/L (5-34); Albumin 3.2 g/dL (3.4-4.8); Alkaline Phosphatase 315 U/L (40-150); Anion Gap 13 mmol/L (10-20); BUN (Urea Nitrogen) 76 mg/dL (8.4-25.7); Bilirubin, Total 3.1 mg/dL (0.2-1.2); Calc. Creatinine Clearance 53 mL/min (70-130); Calcium 8.7 mg/dL (7.8-10.44); Carbon Dioxide 18 mmol/L (23-31); Chloride 109 mmol/L (98-107); Estimated GFR-MDRD 46; Globulin 1.4 g/dL (2.4-3.5); Glucose 102 mg/dL (80-115); Potassium 4.3 mmol/L (3.5-5.1); Protein, Total 4.6 g/dL (5.8-8.1); Sodium 136 mmol/L (136-145); Uric Acid 6.5 mg/dL (3.5-7.2)
[2017-11-26] MEDS: Albumin 25% 25 GM/100 ML BOT IVPB SCH (07:57)
[2017-11-26] MEDS: Docusate 100 MG CAP PO SCH ×2 (07:59→20:59)
[2017-11-26] MEDS: Enoxaparin Sodium 30 MG/0.3 ML SYRINGE SC SCH (07:59)
[2017-11-26] MEDS: Allopurinol 300 MG TAB PO SCH (07:59)
[2017-11-26] MEDS: Sodium Chloride 0.9% 1,000 ML IV SCH (13:34)
--- NOTE | 2017-11-26 13:36 | PDOC.PN ---
- Subjective Encounter Start Date: 11/26/17 Encounter Start Time: 13:34 Mr. Montelongo was seen in follow-up. He does no have any complaints. There is concern that he was wheezing a little this morning. - Objective Resuscitation Status: Resuscitation Status DNR:Do Not Resuscitate MAR Reviewed: Yes Vital Signs & Weight: Vital Signs (12 hours) Temp Pulse Resp BP Pulse Ox 11/26/17 08:00 97.8 F 84 20 96 11/26/17 07:33 97.8 F 84 20 135/80 96 Weight Admit Weight 179 lb 14.4 oz Weight 179 lb 14.355 oz I&O: 11/25/17 11/26/17 11/27/17 06:59 06:59 06:59 Intake Total 1675 2300 Output Total 600 1625 Balance 1075 675 Result Diagrams: 11/25/17 05:00 11/26/17 04:07 Phys Exam - Physical Examination HEENT: PERRLA Respiratory: no wheezing, no rales, no rhonchi, clear to auscultation bilateral Cardiovascular: RRR, no significant murmur, no rub Gastrointestinal: soft, non-tender, positive bowel sounds Musculoskeletal: edema present 2+ pitting edema, throughout Neurological: non-focal Dx/Plan (1) Diffuse large B cell lymphoma Code(s): C83.30 - DIFFUSE LARGE B-CELL LYMPHOMA, UNSPECIFIED SITE Status: Acute (2) Acute kidney failure Status: Acute Qualifiers: Acute renal failure type: unspecified Qualified Code(s): N17.9 - Acute kidney failure, unspecified Comment: Creatinine stable around 1.3. Will avoid nephrotoxins and monitor renal function. (3) Hyperkalemia Code(s): E87.5 - HYPERKALEMIA Status: Acute (4) Hyponatremia Code(s): E87.1 - HYPO-OSMOLALITY AND HYPONATREMIA Status: Acute (5) Acute metabolic encephalopathy Code(s): G93.41 - METABOLIC ENCEPHALOPATHY Status: Resolved (6) Hypercalcemia Code(s): E83.52 - HYPERCALCEMIA Status: Resolved Comment: due to paraneuoplastic process - Plan * Large Diffuse B-cell Lymphoma- patient is post is first Rituxan treatment * Acute renal failure- resolving- Nephrology in put appreciated- IV fluids have been cut back, and he has been placed on Albumin * Obstructive Jaundice- improving after Biliary STENT. * Uric Acid and LDH are also improving * Continue treatment as per Oncology
--- NOTE | 2017-11-26 15:51 | PRG ---
DATE OF SERVICE: 11/26/2017 SUBJECTIVE: Patient was seen and examined at bedside and overnight events noted. Patient denies any shortness of breath or chest pain or palpitation. No history of nausea or vomiting or diarrhea or f ever or chills or cramps. OBJECTIVE: GENERAL: This is a well-built male in no apparent distress. VITAL SIGNS: Temperature 97.8, pulse 84, respiratory rate 18, blood pressure 130/80. HEENT: Atraumatic, normocephalic. Oral mucosa is moist. NECK: Supple. CARDIOVASCULAR: S1, S2 heard. Rate and rhythm regular. RESPIRATORY: Clear to auscultation. GASTROINTESTINAL: Abdomen is soft. MUSCULOSKELETAL: No tenderness. No edema. DERMATOLOGIC: No skin rash. NEUROLOGIC: Alert and awake and oriented x3. No focal neurologic deficits. Moving all the extremiti es. PSYCHIATRIC: Mood and affect normal. LABORATORY DATA: Potassium is 4.3, BUN 76, creatinine is 1.5. ASSESSMENT AND PLAN: 1. Acute kidney injury secondary to volume depletion with anasarca. Plan is to stop intravenous flu ids. Continue albumin as tolerated. 2. Hyponatremia, better. 3. Metabolic acidosis. 4. Mild anemia 5. We will stop IV fluids. Continue albumin as tolerated. The patient is getting fluid overloaded and edema. We will follow. Avoid nephrotoxins.
[2017-11-27 05:02] LABS: Uric Acid 5.3 mg/dL (3.5-7.2)
[2017-11-27 05:03] LABS: ALT (SGPT) 78 U/L (8-55); AST (SGOT) 88 U/L (5-34); Alkaline Phosphatase 311 U/L (40-150); Anion Gap 16 mmol/L (10-20); BUN (Urea Nitrogen) 59 mg/dL (8.4-25.7); Bilirubin, Total 3.3 mg/dL (0.2-1.2); Calc. Creatinine Clearance 67 mL/min (70-130); Carbon Dioxide 16 mmol/L (23-31); Chloride 110 mmol/L (98-107); Estimated GFR-MDRD 59; Globulin 1.6 g/dL (2.4-3.5); Glucose 84 mg/dL (80-115); Potassium 4.5 mmol/L (3.5-5.1); Protein, Total 4.6 g/dL (5.8-8.1); Sodium 137 mmol/L (136-145)
--- NOTE | 2017-11-27 07:17 | PDOC.PN ---
- Subjective Encounter Start Date: 11/27/17 Encounter Start Time: 07:15 Mr. 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 He does not have any complaints. He was a bit fidgety. His X- says he seems to be breathing hard, but it got better after he woke up. - Objective Resuscitation Status: Resuscitation Status DNR:Do Not Resuscitate MAR Reviewed: Yes Vital Signs & Weight: Vital Signs (12 hours) Temp Pulse Resp BP Pulse Ox 11/26/17 20:00 97.8 F 92 24 H 153/85 H 96 Weight Admit Weight 179 lb 14.4 oz Weight 179 lb 14.355 oz I&O: 11/26/17 11/27/17 11/28/17 06:59 06:59 06:59 Intake Total 2300 710 Output Total 1625 350 Balance 675 360 Result Diagrams: 11/25/17 05:00 11/27/17 04:05 Phys Exam - Physical Examination HEENT: PERRLA Respiratory: no wheezing, no rales, no rhonchi, clear to auscultation bilateral Cardiovascular: RRR, no significant murmur, no rub Gastrointestinal: soft, non-tender, positive bowel sounds Musculoskeletal: edema present 2-3+ pitting edema in both legs Dx/Plan (1) Diffuse large B cell lymphoma Code(s): C83.30 - DIFFUSE LARGE B-CELL LYMPHOMA, UNSPECIFIED SITE Status: Acute (2) Acute kidney failure Status: Acute Qualifiers: Acute renal failure type: unspecified Qualified Code(s): N17.9 - Acute kidney failure, unspecified Comment: Creatinine stable around 1.3. Will avoid nephrotoxins and monitor renal function. (3) Hyperkalemia Code(s): E87.5 - HYPERKALEMIA Status: Acute (4) Hyponatremia Code(s): E87.1 - HYPO-OSMOLALITY AND HYPONATREMIA Status: Acute (5) Acute metabolic encephalopathy Code(s): G93.41 - METABOLIC ENCEPHALOPATHY Status: Resolved (6) Hypercalcemia Code(s): E83.52 - HYPERCALCEMIA Status: Resolved Comment: due to paraneuoplastic process - Plan * Diffuse B-cell Lymphoma, with Obstructive Jaundice- He has received his first dose of Rituxan. * Acute renal failure- improving * Hyponatremia- improved * Obstructive Jaundice- he has continued improved in liver function parameters * Continue to encourage oral intake * PT/OT.
[2017-11-27] MEDS: Allopurinol 300 MG TAB PO SCH (09:09)
[2017-11-27] MEDS: Docusate 100 MG CAP PO SCH ×2 (09:09→21:27)
[2017-11-27] MEDS: Enoxaparin Sodium 40 MG/0.4 ML SYRINGE SC SCH (09:09)
--- NOTE | 2017-11-27 11:44 | PRG ---
DATE OF SERVICE: 11/27/2017 SUBJECTIVE: A 67-year-old gentleman being seen for acute kidney injury with improving creatinine. T he patient denies any nausea, vomiting or chest pain. OBJECTIVE: GENERAL: The patient is awake, alert. VITAL SIGNS: Afebrile, pulse 86, breathing 16, blood pressure 119/67. GENERAL APPEARANCE AND MENTAL STATUS: Fair. HEAD/NECK: Normocephalic. Atraumatic. EYES: EOMI. No deformity. EARS: Clear. No ulcers. NOSE: Intact. No lesions. MOUTH: Clear. No discharge. THROAT: Clear. No exudate. LUNGS: Clear. No crackles. CARDIAC: S1, S2. No rub. ABDOMEN: Benign. BS+. GENITALIA/RECTUM: Crespo absent. BACK/EXTREMITIES: Edema 0+ Ulcer- NEUROLOGICAL: Alert and motor intact. SKIN: Rash- Bruise- LYMPHATICS: Edema- Ulcer- LABORATORY: Hemoglobin 13.2, sodium 137, creatinine 1.2. ASSESSMENT AND RECOMMENDATIONS: 1. Acute kidney injury. 2. Hypertension, stable. 3. Anemia, stable. 4. Metabolic acidosis. Recommend sodium bicarbonate. The patient will follow up with Dr. Tenorio in 1 week.
--- NOTE | 2017-11-27 15:13 | ULT ---
RIGHT UPPER QUADRANT ULTRASOUND: History: Biliary obstruction. Abdominal pain. Cholecystitis. FINDINGS: Multiple shadowing stones are apparent within the gallbladder lumen. Gallbladder wall is somewhat thi ckened at 0.6 cm. Small amount of pericardial fluid is apparent. Common duct is obscured by bowel gas . No significant free fluid is visible. Multiple masses throughout the liver correlate with CT findings. IMPRESSION: 1. Cholelithiasis. 2. Pericholecystic fluid and gallbladder wall thickening are nonspecific in the setting of other dise ase. While acute cholecystitis cannot be completely excluded on this study alone, the gallbladder wal l thickening and enhancement on recent CT suggests the possibility of gallbladder inflammation. Clini rip correlation regarding other signs and symptoms of acute cholecystitis is required. 3. Multiple liver masses. POS: [facility]
[2017-11-27] MEDS ORDERED: [UNRECOGNIZED DRUG - REMARK] FS SCH (16:15)
[2017-11-27 16:42] LABS: Hemoglobin 13.9 g/dL (14.0-18.0); Mean Corpuscular HGB CONC 32.3 g/dL (32.0-36.0); Mean Corpuscular Hemoglobin 28.7 pg (27.0-31.0); Mean Corpuscular Volume 88.8 fl (80.0-94.0); Mean Platelet Volume 8.7 fL (7.4-10.4); Platelet Count 166 thou/uL (130-400); RBC Distribution Width 17.9 % (11.5-14.5); Red Blood Cell (RBC) Count 4.84 mill/uL (4.70-6.10); White Blood Cell (WBC) Count 30.3 thou/uL (4.8-10.8)
[2017-11-27 17:24] LABS: Anisocytosis SLIGHT = 6-15 cells (100X) (0-5/hpf); Band 13 % (5-11); MDiff Complete? YES; Monocytes 3 % (0-10); Neutrophil 84 % (42-75); Ovalocytes SLIGHT = 2-5 cells (100X) (0-1/hpf); PLT Morphology Comment Appears Adequate; Polychromasia SLIGHT = 2-3 cells (100X) (0-2/hpf); Target Cells SLIGHT = 2-5 cells (100X) (0-1/hpf)
[2017-11-27] MEDS ORDERED: Proctozone-HC 2.5% Cream 30 GM TUBE TOP PRN (21:07)
[2017-11-28 04:55] LABS: Uric Acid 4.9 mg/dL (3.5-7.2)
[2017-11-28 04:56] LABS: ALT (SGPT) 62 U/L (8-55); AST (SGOT) 63 U/L (5-34); Albumin 2.9 g/dL (3.4-4.8); Alkaline Phosphatase 299 U/L (40-150); Anion Gap 12 mmol/L (10-20); BUN (Urea Nitrogen) 58 mg/dL (8.4-25.7); Bilirubin, Total 3.2 mg/dL (0.2-1.2); Calc. Creatinine Clearance 60 mL/min (70-130); Calcium 8.5 mg/dL (7.8-10.44); Carbon Dioxide 20 mmol/L (23-31); Chloride 109 mmol/L (98-107); Estimated GFR-MDRD 52; Globulin 1.6 g/dL (2.4-3.5); Glucose 103 mg/dL (80-115); Potassium 4.4 mmol/L (3.5-5.1); Protein, Total 4.5 g/dL (5.8-8.1); Sodium 137 mmol/L (136-145)
[2017-11-28] MEDS ORDERED: methylPREDNISolone Sod Succ 1,000 MG in Sodium Chloride 0.9% 100 ML IVPB SCH (09:00)
[2017-11-28] MEDS ORDERED: SODIUM CHLORIDE 0.9% IVPB SCH (09:00)
[2017-11-28] MEDS ORDERED: RITUXIMAB IVPB SCH (09:00)
[2017-11-28] MEDS ORDERED: diphenhydrAMINE 50 MG/ML VIAL IVP SCH (09:00)
[2017-11-28] MEDS ORDERED: PALONOSETRON HCL 0.05 MG/ML 5 ML VIAL IVP SCH (09:00)
[2017-11-28] MEDS ORDERED: Cyclophosphamide 1 GM, Cyclophosphamide 500 MG in Sodium Chloride 0.9% 250 ML 250 ML IVPB SCH (09:00)
[2017-11-28] MEDS: Allopurinol 300 MG TAB PO SCH (09:58)
[2017-11-28] MEDS: Enoxaparin Sodium 40 MG/0.4 ML SYRINGE SC SCH (09:58)
--- NOTE | 2017-11-28 11:45 | PDOC.PN ---
- Subjective Encounter Start Date: 11/28/17 Encounter Start Time: 07:00 Pt seen for followup re:acute renal failure. Denies chest pain, reports generalized weakness. - Objective Resuscitation Status: Resuscitation Status DNR:Do Not Resuscitate MAR Reviewed: Yes Vital Signs & Weight: Vital Signs (12 hours) Temp Pulse Resp BP Pulse Ox 11/28/17 08:00 97.0 F L 94 20 97 11/28/17 07:55 97.0 F L 94 20 105/70 97 Weight Admit Weight 179 lb 14.4 oz Weight 179 lb 14.355 oz I&O: 11/27/17 11/28/17 11/29/17 06:59 06:59 06:59 Intake Total 710 450 Output Total 350 400 Balance 360 50 Result Diagrams: 11/27/17 15:50 11/28/17 04:06 Phys Exam - Physical Examination Constitutional: NAD HEENT: moist MMs Neck: supple Respiratory: clear to auscultation bilateral Cardiovascular: RRR Gastrointestinal: soft Musculoskeletal: edema present Neurological: moves all 4 limbs Psychiatric: normal affect Dx/Plan (1) Acute kidney failure Status: Acute Qualifiers: Acute renal failure type: unspecified Qualified Code(s): N17.9 - Acute kidney failure, unspecified Comment: Creatinine 1.35 today, continue to monitor (2) Abnormal LFTs Code(s): R94.5 - ABNORMAL RESULTS OF LIVER FUNCTION STUDIES Status: Acute Comment: LFTs improving (3) Diffuse large B cell lymphoma Code(s): C83.30 - DIFFUSE LARGE B-CELL LYMPHOMA, UNSPECIFIED SITE Status: Acute Comment: started on chemo - Plan plan discussed w/ family, out of bed/ambulate * . Review of Systems - Review of Systems Respiratory: negative: Cough, Shortness of Breath, Hemoptysis, SOB with Excertion, Pleuritic Pain, Wheezing Cardiovascular: negative: chest pain, palpitations, orthopnea, paroxysmal nocturnal dyspnea, edema, light headedness - Medications/Allergies Allergies/Adverse Reactions: Allergies Allergy/AdvReac Type Severity Reaction Status Date / Time Sulfa (Sulfonamide Allergy Verified 10/29/17 12:08 Antibiotics) Medications: Current Medications Al Hydroxide/Mg Hydroxide (Maalox) 15 ml PO Q4H PRN PRN Reason: Heartburn or Indigestion Allopurinol (Zyloprim) 300 mg PO DAILY [facility] Last Admin: 11/28/17 09:58 Dose: 300 mg Artificial Tears (Tears Naturale) 0 drop EA EYE PRN PRN PRN Reason: Dry Eyes Diphenhydramine HCl (Benadryl) 50 mg IVP [facility] Stop: 11/28/17 23:59 Docusate Sodium (Colace) 100 mg PO BID [facility] Last Admin: 11/27/17 21:27 Dose: 100 mg Enoxaparin Sodium (Lovenox) 40 mg SC 0900 [facility] Last Admin: 11/28/17 09:58 Dose: 40 mg Guaifenesin (Robitussin Sf) 200 mg PO Q4H PRN PRN Reason: Cough Hydralazine HCl (Apresoline) 10 mg SLOW IVP Q4H PRN PRN Reason: Systolic BP > 180 Hydrocortisone Acetate (Anusol-Hc) 25 mg [place] BIDPRN PRN PRN Reason: Hemorrhoids Hydrocortisone Sodium Succinate (Proctozone-Hc 2.5% Cream) 0 gm TOP Q8H PRN PRN Reason: RECTAL DISCOMFORT Last Admin: 11/27/17 21:27 Dose: 1 applic Rituximab 750 mg/ Sodium (Chloride) 575 mls @ 0 mls/hr IVPB [facility] PRN Reason: As Directed Stop: 11/28/17 23:59 Cyclophosphamide 1 gm/Cyclophosphamide 500 mg/Sodium Chloride 250 mls @ 0 mls/ hr IVPB [facility] PRN Reason: As Directed Stop: 11/28/17 23:59 Methylprednisolone Sodium Succinate 1,000 mg/ Sodium Chloride 116 mls @ 232 mls /hr IVPB [facility] Stop: 11/28/17 23:59 Loperamide HCl (Imodium) 2 mg PO PRN PRN PRN Reason: Diarrhea/Loose Stools Loratadine (Claritin) 10 mg PO DAILYPRN PRN PRN Reason: Sinus Symptoms Magnesium Hydroxide (Milk Of Magnesium) 30 ml PO DAILYPRN PRN PRN Reason: Constipation Mineral Oil/White Petrolatum (Eucerin Cream) 0 gm TOP BIDPRN PRN PRN Reason: Dry Skin Morphine Sulfate (Morphine) 2 mg SLOW IVP Q4H PRN PRN Reason: Pain Last Admin: 11/19/17 14:23 Dose: 2 mg Ondansetron HCl (Zofran) 4 mg IVP Q6H PRN PRN Reason: Nausea/Vomiting Last Admin: 11/18/17 19:39 Dose: 4 mg Ondansetron HCl (Zofran Odt) 4 mg SL Q6H PRN PRN Reason: Nausea/Vomiting Palonosetron (Aloxi) 0.25 mg IVP [facility] Stop: 11/28/17 23:59 Pantoprazole Sodium (Protonix) 40 mg PO DAILY [facility] Last Admin: 11/28/17 09:58 Dose: 40 mg Pegfilgrastim (Neulasta) 6 mg SC [facility] Stop: 11/29/17 23:59 Phenol (Chloraseptic [place] 180 Ml Bot) 0 ml PO PRN PRN PRN Reason: Sore Throat Last Admin: 11/28/17 03:07 Dose: 1 applic Prednisone (Prednisone) 100 mg PO ASDIR [facility] Stop: 12/02/17 11:00 Senna (Senokot) 2 tab PO HSPRN PRN PRN Reason: Constipation Sodium Chloride ([place] Nasal [place] 0.65%) 0 ml EA NARE QIDPRN PRN PRN Reason: Nasal Congestion Sodium Chloride (Flush - Normal Saline) 10 ml IVF PRN PRN PRN Reason: Saline Flush Last Admin: 11/26/17 21:02 Dose: 10 ml
[2017-11-28] MEDS: Docusate 100 MG CAP PO SCH (11:52)
[2017-11-28] MEDS ORDERED: Docusate Sodium 100 MG/10 ML UDCUP PO SCH (12:00)
[2017-11-28] MEDS ORDERED: CEFAZOLIN/Water 2 GM/20 ML SYRINGE SLOW IVP SCH (13:30)
[2017-11-28] MEDS: Docusate Sodium 100 MG/10 ML UDCUP PO SCH ×2 (20:28→20:32)
--- NOTE | 2017-11-28 22:13 | PDOC.GSPN ---
Surgery Progress Note: Subj - Subjective Narrative: Patient is feeling better compared to last week. He did tolerate chemotherapy on and is scheduled to have another round this . He is more lucid and denies abdominal pain or nausea. He has been tolerating his diet. Afebrile, vital signs okay. Renal function somewhat improved from earlier. White count initially came down but then went back up again after methylprednisolone. LFTs have declined status post stenting and although still somewhat elevated are stable and much lower than before. Respirations are still somewhat labored and his breath sounds are diminished in the bases. He still has edema in his extremities and is requiring oxygen. Abdomen is soft and minimally tender in the epigastrium. Assessment/plan: Lymphoma tolerating chemotherapy. Overall clinical status has improved somewhat since last week. His oncology team has requested a Mediport placement. I discussed the procedure and its inherent risks with the patient and his daughter and they're going to make a decision on whether to proceed. Risks include but are not limited to bleeding, infection, risks of anesthesia, hemothorax, pneumothorax, need further procedures, and deep vein thrombosis. Benefits include avoiding multiple IVs for lab draws and chemotherapy access. Surgery Progress Note: Obj - Vital signs Vital signs: Vital Signs - Most Recent Temp Pulse Resp BP Pulse Ox 98.9 F 97 20 118/72 95 11/28/17 19:22 11/28/17 19:22 11/28/17 19:22 11/28/17 19:22 11/28/17 19:22 Surgery Progress Note: Results - Labs Result Diagrams: 11/27/17 15:50 11/28/17 04:06
[2017-11-29] MEDS: Allopurinol 300 MG TAB PO SCH (08:23)
[2017-11-29] MEDS ORDERED: predniSONE 50 MG TAB PO SCH (09:00)
[2017-11-29] MEDS: Docusate Sodium 100 MG/10 ML UDCUP PO SCH ×2 (09:01→21:57)
[2017-11-29] MEDS: Enoxaparin Sodium 40 MG/0.4 ML SYRINGE SC SCH (09:01)
--- NOTE | 2017-11-29 12:48 | PDOC.PN ---
- Subjective Encounter Start Date: 11/29/17 Encounter Start Time: 07:00 Pt seen for followup re: [place]. Denies chest pain, shortness of breath, fevers or chills. - Objective Resuscitation Status: Resuscitation Status DNR:Do Not Resuscitate MAR Reviewed: Yes Vital Signs & Weight: Vital Signs (12 hours) Temp Pulse Resp BP Pulse Ox 11/29/17 10:59 97.6 F 86 20 102/62 95 11/29/17 08:00 99.3 F 84 24 H 11/29/17 07:43 99.3 F 84 24 H 112/70 96 11/29/17 03:41 97.8 F 79 16 108/72 94 L Weight Admit Weight 179 lb 14.4 oz Weight 179 lb 14.355 oz I&O: 11/28/17 11/29/17 11/30/17 06:59 06:59 06:59 Intake Total 450 800 Output Total 400 225 Balance 50 575 Result Diagrams: 11/27/17 15:50 11/28/17 04:06 Phys Exam - Physical Examination Constitutional: NAD HEENT: moist MMs Scleral icterus Neck: supple Respiratory: clear to auscultation bilateral Cardiovascular: RRR Gastrointestinal: soft Musculoskeletal: edema present Neurological: moves all 4 limbs Psychiatric: normal affect Dx/Plan (1) Acute kidney failure Status: Acute Qualifiers: Acute renal failure type: unspecified Qualified Code(s): N17.9 - Acute kidney failure, unspecified Comment: Check creatinine tomorrow (2) Abnormal LFTs Code(s): R94.5 - ABNORMAL RESULTS OF LIVER FUNCTION STUDIES Status: Acute Comment: LFTs improving, check tomorrow (3) Diffuse large B cell lymphoma Code(s): C83.30 - DIFFUSE LARGE B-CELL LYMPHOMA, UNSPECIFIED SITE Status: Acute Comment: started on chemo, for MediPort placement today - Plan * . Review of Systems - Review of Systems Constitutional: negative: fever, chills, sweats, weakness, malaise Cardiovascular: negative: chest pain, palpitations, orthopnea, paroxysmal nocturnal dyspnea, edema, light headedness - Medications/Allergies Allergies/Adverse Reactions: Allergies Allergy/AdvReac Type Severity Reaction Status Date / Time Sulfa (Sulfonamide Allergy Verified 10/29/17 12:08 Antibiotics) Medications: Current Medications Al Hydroxide/Mg Hydroxide (Maalox) 15 ml PO Q4H PRN PRN Reason: Heartburn or Indigestion Allopurinol (Zyloprim) 300 mg PO DAILY [facility] Last Admin: 11/29/17 08:23 Dose: 300 mg Artificial Tears (Tears Naturale) 0 drop EA EYE PRN PRN PRN Reason: Dry Eyes Cefazolin Sodium (Ancef) 2 gm SLOW IVP [facility] Docusate Sodium (Colace Liquid) 100 mg PO BID [facility] Last Admin: 11/29/17 09:01 Dose: Not Given Enoxaparin Sodium (Lovenox) 40 mg SC 0900 [facility] Last Admin: 11/29/17 09:01 Dose: Not Given Guaifenesin (Robitussin Sf) 200 mg PO Q4H PRN PRN Reason: Cough Hydralazine HCl (Apresoline) 10 mg SLOW IVP Q4H PRN PRN Reason: Systolic BP > 180 Hydrocortisone Acetate (Anusol-Hc) 25 mg [place] BIDPRN PRN PRN Reason: Hemorrhoids Hydrocortisone Sodium Succinate (Proctozone-Hc 2.5% Cream) 0 gm TOP Q8H PRN PRN Reason: RECTAL DISCOMFORT Last Admin: 11/27/17 21:27 Dose: 1 applic Loperamide HCl (Imodium) 2 mg PO PRN PRN PRN Reason: Diarrhea/Loose Stools Loratadine (Claritin) 10 mg PO DAILYPRN PRN PRN Reason: Sinus Symptoms Magnesium Hydroxide (Milk Of Magnesium) 30 ml PO DAILYPRN PRN PRN Reason: Constipation Mineral Oil/White Petrolatum (Eucerin Cream) 0 gm TOP BIDPRN PRN PRN Reason: Dry Skin Ondansetron HCl (Zofran) 4 mg IVP Q6H PRN PRN Reason: Nausea/Vomiting Last Admin: 11/18/17 19:39 Dose: 4 mg Ondansetron HCl (Zofran Odt) 4 mg SL Q6H PRN PRN Reason: Nausea/Vomiting Pantoprazole Sodium (Protonix) 40 mg PO DAILY [facility] Last Admin: 11/29/17 08:23 Dose: 40 mg Pegfilgrastim (Neulasta) 6 mg SC [facility] Stop: 11/29/17 23:59 Phenol (Chloraseptic [place] 180 Ml Bot) 0 ml PO PRN PRN PRN Reason: Sore Throat Last Admin: 11/28/17 03:07 Dose: 1 applic Prednisone (Prednisone) 100 mg PO ASDIR [facility] Stop: 12/02/17 11:00 Senna (Senokot) 2 tab PO HSPRN PRN PRN Reason: Constipation Sodium Chloride ([place] Nasal [place] 0.65%) 0 ml EA NARE QIDPRN PRN PRN Reason: Nasal Congestion Sodium Chloride (Flush - Normal Saline) 10 ml IVF PRN PRN PRN Reason: Saline Flush Last Admin: 11/26/17 21:02 Dose: 10 ml
[2017-11-29] MEDS ORDERED: Bupivacaine/Epinephrine 0.25% 30 ML VIAL ONE (13:14)
[2017-11-29] MEDS ORDERED: Lidocaine 2% 10 ML INJ ONE (13:14)
[2017-11-29] MEDS ORDERED: Fentanyl 100 MCG/2 ML VIAL ONE ×2 (13:20→13:52)
[2017-11-29] MEDS ORDERED: Midazolam HCl 2 mg/2 ml Vial ONE ×2 (13:20→13:52)
[2017-11-29] MEDS ORDERED: Propofol 500 MG/50 ML VIAL ONE (13:52)
[2017-11-29] MEDS ORDERED: Meperidine HCl/PF 25 MG/ML VIAL SLOW IVP PRN (14:37)
[2017-11-29] MEDS ORDERED: Promethazine HCl 25 MG/ML VIAL SLOW IVP PRN (14:37)
[2017-11-29] MEDS ORDERED: Ondansetron HCl/PF 4 MG/2 ML Vial IVP PRN (14:37)
[2017-11-29] MEDS ORDERED: HYDROmorphone 2 MG/ML VIAL SLOW IVP PRN (14:37)
[2017-11-29] MEDS ORDERED: Morphine Sulfate 2 MG/ML SYRINGE SLOW IVP PRN (14:37)
--- NOTE | 2017-11-29 15:09 | RAD ---
CHEST 1 VIEW: Date: 11/29/17 HISTORY: MediPort placement. COMPARISON: 11/19/17. FINDINGS: Cardiac silhouette is magnified by projection. Shallow inspiration accentuates pulmonary markings. Me diastinum is midline. Left subclavian MediPort is now in place with tip overlying the superior vena c glen. No evidence of pneumothorax. Calcified granuloma over the right chest is stable. IMPRESSION: Left subclavian MediPort is in good radiographic position. POS: [facility]
--- NOTE | 2017-11-29 15:49 | PDOC.OP ---
Operative Note - Operative Note Operative Note: PROCEDURE: Left subclavian MediPort placement with fluoroscopic guidance SURGEON: Antony Narvaez M.D. DATE OF PROCEDURE: 11/29/2017 PREOPERATIVE DIAGNOSIS: Lymphoma POSTOPERATIVE DIAGNOSIS: Lymphoma HISTORY: Patient is diagnosed with lymphoma. Chemotherapy has been initiated and the oncologist has requested MediPort placement for ongoing chemotherapy. OPERATIVE PROCEDURE IN DETAIL: After informed consent was obtained and appropriate preoperative antibiotics were administered, the patient was taken to the operating room and placed in supine position and monitored anesthesia care was administered. The patient was then placed in Trendelenburg position and the subclavian vein accessed easily on the first attempt with excellent flow of dark venous non-pulsatile blood. A wire threaded easily and was confirmed to be in the superior vena cava by fluoroscopy. Additional local anesthesia was infused to the skin and subcutaneous tissues lateral and inferior to the access site. The skin incision was extended from the wire laterally and a subcutaneous pocket developed inferiorly. A Mediport was obtained and confirmed to fit in the subcutaneous pocket. This was secured inferiorly to the pectoralis fascia with a Prolene suture, which was clamped, but not tied. The dilator and sheath were then placed over the wire and the dilator and wire removed leaving the sheath in place. The clamped MediPort tubing was tunneled through the sheath, which was then split and removed leaving the MediPort tubing in place. The tubing was adjusted until the tip was confirmed by fluoroscopy to be in the superior vena cava just above the atrium. The tubing was clamped at the skin level and cut and the tubing secured to the port, which was then placed in the subcutaneous pocket. The previously placed suture was secured and two additional sutures were placed to fix the port in place within the pocket. The port was aspirated with the Cheek needle and had excellent flow of dark venous non-pulsatile blood and easily flushed without resistance. The subcutaneous tissues were closed with a running Monocryl suture, following which the skin was closed with a running subcuticular Monocryl suture. Dermabond dressings were placed and the hub was again accessed through the skin and confirmed to easily aspirate and easily flush. The course of the catheter was confirmed by fluoroscopy to be smooth with the tip appropriately located in the superior vena cava. The patient was taken her back to the day stay unit in good condition. Estimated blood loss was minimal. There were no complications. There were no specimens.
[2017-11-30 06:14] LABS: Hemoglobin 12.6 g/dL (14.0-18.0); Lymphocytes 2 % (21-51); MDiff Complete? YES; Mean Corpuscular HGB CONC 31.4 g/dL (32.0-36.0); Mean Corpuscular Hemoglobin 28.1 pg (27.0-31.0); Mean Corpuscular Volume 89.3 fl (80.0-94.0); Mean Platelet Volume 8.9 fL (7.4-10.4); Monocytes 5 % (0-10); Neutrophil 93 % (42-75); Platelet Count 170 thou/uL (130-400); RBC Distribution Width 18.7 % (11.5-14.5); Red Blood Cell (RBC) Count 4.49 mill/uL (4.70-6.10); White Blood Cell (WBC) Count 28.1 thou/uL (4.8-10.8)
[2017-11-30 06:20] LABS: ALT (SGPT) 50 U/L (8-55); AST (SGOT) 69 U/L (5-34); Albumin 2.8 g/dL (3.4-4.8); Alkaline Phosphatase 353 U/L (40-150); Anion Gap 14 mmol/L (10-20); BUN (Urea Nitrogen) 63 mg/dL (8.4-25.7); Bilirubin, Total 2.9 mg/dL (0.2-1.2); Calc. Creatinine Clearance 51 mL/min (70-130); Calcium 8.2 mg/dL (7.8-10.44); Carbon Dioxide 20 mmol/L (23-31); Chloride 105 mmol/L (98-107); Estimated GFR-MDRD 43; Globulin 1.6 g/dL (2.4-3.5); Glucose 84 mg/dL (80-115); Potassium 4.5 mmol/L (3.5-5.1); Protein, Total 4.4 g/dL (5.8-8.1); Sodium 134 mmol/L (136-145); Uric Acid 4.6 mg/dL (3.5-7.2)
[2017-11-30] MEDS: Allopurinol 300 MG TAB PO SCH (08:57)
[2017-11-30] MEDS: Docusate Sodium 100 MG/10 ML UDCUP PO SCH ×2 (08:57→21:12)
[2017-11-30] MEDS: Enoxaparin Sodium 40 MG/0.4 ML SYRINGE SC SCH (08:57)
[2017-11-30] MEDS ORDERED: PALONOSETRON HCL 0.05 MG/ML 5 ML VIAL IVP SCH (09:45)
[2017-11-30] MEDS ORDERED: SODIUM CHLORIDE IVPB SCH ×3 (09:45→10:00)
[2017-11-30] MEDS ORDERED: RITUXIMAB IVPB SCH (09:45)
[2017-11-30] MEDS ORDERED: FOSAPREPITANT DIMEGLUMINE IVPB SCH (09:45)
[2017-11-30] MEDS ORDERED: diphenhydrAMINE 50 MG/ML VIAL IVP SCH (09:45)
[2017-11-30] MEDS ORDERED: methylPREDNISolone Sod Succ 1 GM, Admixture Fee 1 EACH in Sodium Chloride 0.9% 100 ML IVPB SCH (09:45)
[2017-11-30] MEDS ORDERED: Dexamethasone 10 MG/ML VIAL SLOW IVP SCH (09:45)
[2017-11-30] MEDS ORDERED: ADMIXTURE FEE IVPB SCH ×4 (09:45→10:00)
[2017-11-30] MEDS ORDERED: CYCLOPHOSPHAMIDE IVPB SCH (10:00)
[2017-11-30] MEDS ORDERED: SODIUM CHLORIDE FS SCH (10:00)
[2017-11-30] MEDS ORDERED: VINCRISTINE SULFATE FS SCH (10:00)
[2017-11-30] MEDS ORDERED: DOXORUBICIN IVPB SCH (10:00)
[2017-11-30] MEDS ORDERED: ADMIXTURE FEE FS SCH (10:00)
[2017-11-30] MEDS ORDERED: [UNRECOGNIZED DRUG - OTHER] IVPB SCH (10:00)
--- NOTE | 2017-11-30 14:15 | PDOC.PN ---
- Subjective Encounter Start Date: 11/30/17 Encounter Start Time: 08:00 Pt seen for followup re: acute renal failure. Denies chest pain, shortness of breath, fevers or chills. - Objective Resuscitation Status: Resuscitation Status DNR:Do Not Resuscitate MAR Reviewed: Yes Vital Signs & Weight: Vital Signs (12 hours) Temp Pulse Resp BP Pulse Ox 11/30/17 08:54 96.9 F L 95 24 H 127/72 92 L Weight Admit Weight 179 lb 14.4 oz Weight 175 lb I&O: 11/29/17 11/30/17 12/01/17 06:59 06:59 06:59 Intake Total 800 480 Output Total 225 Balance 575 480 Result Diagrams: 11/30/17 04:55 11/30/17 04:55 Phys Exam - Physical Examination Constitutional: NAD HEENT: moist MMs Neck: supple Respiratory: clear to auscultation bilateral Cardiovascular: RRR Gastrointestinal: soft Musculoskeletal: edema present Neurological: moves all 4 limbs Psychiatric: normal affect Skin: no rash Dx/Plan (1) Acute kidney failure Status: Acute Qualifiers: Acute renal failure type: unspecified Qualified Code(s): N17.9 - Acute kidney failure, unspecified Comment: Creatinine worse, IV albumin, nephrology input (2) Abnormal LFTs Code(s): R94.5 - ABNORMAL RESULTS OF LIVER FUNCTION STUDIES Status: Acute Comment: LFTs slightly worse today, recheck (3) Diffuse large B cell lymphoma Code(s): C83.30 - DIFFUSE LARGE B-CELL LYMPHOMA, UNSPECIFIED SITE Status: Acute Comment: for chemo today - Plan * . Review of Systems - Review of Systems Constitutional: negative: fever, chills, sweats, weakness Respiratory: SOB with Excertion. negative: Cough, Shortness of Breath, Pleuritic Pain - Medications/Allergies Allergies/Adverse Reactions: Allergies Allergy/AdvReac Type Severity Reaction Status Date / Time Sulfa (Sulfonamide Allergy Verified 10/29/17 12:08 Antibiotics) Medications: Current Medications Al Hydroxide/Mg Hydroxide (Maalox) 15 ml PO Q4H PRN PRN Reason: Heartburn or Indigestion Albumin Human (Albumin 25%) 25 gm IVPB Q12H [facility] Stop: 12/02/17 02:16 Allopurinol (Zyloprim) 300 mg PO DAILY [facility] Last Admin: 11/30/17 08:57 Dose: 300 mg Artificial Tears (Tears Naturale) 0 drop EA EYE PRN PRN PRN Reason: Dry Eyes Cefazolin Sodium (Ancef) 2 gm SLOW IVP [facility] Dexamethasone (Decadron) 20 mg SLOW IVP [facility] Stop: 11/30/17 21:00 Last Admin: 11/30/17 13:38 Dose: 20 mg Diphenhydramine HCl (Benadryl) 50 mg IVP [facility] Stop: 12/01/17 23:59 Docusate Sodium (Colace Liquid) 100 mg PO BID [facility] Last Admin: 11/30/17 08:57 Dose: Not Given Enoxaparin Sodium (Lovenox) 40 mg SC 0900 [facility] Last Admin: 11/30/17 08:57 Dose: 40 mg Guaifenesin (Robitussin Sf) 200 mg PO Q4H PRN PRN Reason: Cough Hydralazine HCl (Apresoline) 10 mg SLOW IVP Q4H PRN PRN Reason: Systolic BP > 180 Hydrocortisone Acetate (Anusol-Hc) 25 mg [place] BIDPRN PRN PRN Reason: Hemorrhoids Hydrocortisone Sodium Succinate (Proctozone-Hc 2.5% Cream) 0 gm TOP Q8H PRN PRN Reason: RECTAL DISCOMFORT Last Admin: 11/27/17 21:27 Dose: 1 applic Fosaprepitant 150 mg/Miscellaneous Medication 1 each/ Sodium Chloride 145 mls @ 300 mls/hr IVPB [facility] Stop: 12/01/17 23:59 Last Admin: 11/30/17 13:01 Dose: 145 mls Methylprednisolone Sodium Succinate 1 gm/ Miscellaneous Medication 1 each/ Sodium Chloride 108 mls @ 216 mls/hr IVPB [facility] Stop: 12/01/17 23:59 Rituximab 500 mg/ Rituximab 250 mg/ Miscellaneous Medication 1 each/ Sodium Chloride 575 mls @ 0 mls/hr IVPB [facility] PRN Reason: As Directed Stop: 12/01/17 23:59 Doxorubicin HCl 50 mg/Miscellaneous Medication 1 each/ Sodium Chloride 125 mls @ 214.286 mls/hr IVPB [facility] Stop: 12/01/17 23:59 Last Admin: 11/30/17 13:51 Dose: 125 mls Vincristine Sulfate 1 mg/Miscellaneous Medication 1 each/ Sodium Chloride 51 mls @ 0 mls/hr FS ONE [facility] PRN Reason: As Directed Stop: 12/01/17 23:59 Last Admin: 11/30/17 13:48 Dose: 51 mls Cyclophosphamide 1 gm/Cyclophosphamide 500 mg/Miscellaneous Medication 1 each/ Sodium Chloride 325 mls @ 325 mls/hr IVPB [facility] Stop: 12/01/17 23:59 Loperamide HCl (Imodium) 2 mg PO PRN PRN PRN Reason: Diarrhea/Loose Stools Loratadine (Claritin) 10 mg PO DAILYPRN PRN PRN Reason: Sinus Symptoms Magnesium Hydroxide (Milk Of Magnesium) 30 ml PO DAILYPRN PRN PRN Reason: Constipation Mineral Oil/White Petrolatum (Eucerin Cream) 0 gm TOP BIDPRN PRN PRN Reason: Dry Skin Ondansetron HCl (Zofran) 4 mg IVP Q6H PRN PRN Reason: Nausea/Vomiting Last Admin: 11/18/17 19:39 Dose: 4 mg Ondansetron HCl (Zofran Odt) 4 mg SL Q6H PRN PRN Reason: Nausea/Vomiting Palonosetron (Aloxi) 0.25 mg IVP [facility] Stop: 12/01/17 23:59 Last Admin: 11/30/17 13:35 Dose: 0.25 mg Pantoprazole Sodium (Protonix) 40 mg PO DAILY [facility] Last Admin: 11/30/17 08:57 Dose: 40 mg Phenol (Chloraseptic [place] 180 Ml Bot) 0 ml PO PRN PRN PRN Reason: Sore Throat Last Admin: 11/28/17 03:07 Dose: 1 applic Prednisone (Prednisone) 100 mg PO ASDIR [facility] Stop: 12/02/17 11:00 Prednisone (Prednisone) 100 mg PO QAM-WM [facility] Stop: 12/04/17 08:01 Senna (Senokot) 2 tab PO HSPRN PRN PRN Reason: Constipation Sodium Chloride ([place] Nasal [place] 0.65%) 0 ml EA NARE QIDPRN PRN PRN Reason: Nasal Congestion Sodium Chloride (Flush - Normal Saline) 10 ml IVF PRN PRN PRN Reason: Saline Flush Last Admin: 11/30/17 13:38 Dose: 10 ml
[2017-11-30] MEDS: Albumin 25% 25 GM/100 ML BOT IVPB SCH (15:32)
[2017-11-30] MEDS ORDERED: Acetaminophen 500 MG TAB PO SCH (16:00)
[2017-12-01] MEDS: Albumin 25% 25 GM/100 ML BOT IVPB SCH ×2 (03:20→15:31)
[2017-12-01 07:00] LABS: ALT (SGPT) 38 U/L (8-55); AST (SGOT) 70 U/L (5-34); Albumin 3.1 g/dL (3.4-4.8); Alkaline Phosphatase 301 U/L (40-150); Anion Gap 17 mmol/L (10-20); BUN (Urea Nitrogen) 65 mg/dL (8.4-25.7); Bilirubin, Total 2.3 mg/dL (0.2-1.2); Calc. Creatinine Clearance 47 mL/min (70-130); Calcium 8.2 mg/dL (7.8-10.44); Carbon Dioxide 19 mmol/L (23-31); Chloride 106 mmol/L (98-107); Estimated GFR-MDRD 41; Globulin 1.6 g/dL (2.4-3.5); Glucose 149 mg/dL (80-115); Potassium 4.6 mmol/L (3.5-5.1); Protein, Total 4.7 g/dL (5.8-8.1); Sodium 137 mmol/L (136-145); Uric Acid 4.4 mg/dL (3.5-7.2)
[2017-12-01 07:43] LABS: Hemoglobin 11.7 g/dL (14.0-18.0); Mean Corpuscular HGB CONC 31.9 g/dL (32.0-36.0); Mean Corpuscular Hemoglobin 28.7 pg (27.0-31.0); Mean Corpuscular Volume 90.1 fl (80.0-94.0); Mean Platelet Volume 8.8 fL (7.4-10.4); Platelet Count 171 thou/uL (130-400); RBC Distribution Width 18.5 % (11.5-14.5); Red Blood Cell (RBC) Count 4.06 mill/uL (4.70-6.10); White Blood Cell (WBC) Count 23.6 thou/uL (4.8-10.8)
[2017-12-01] MEDS: Enoxaparin Sodium 40 MG/0.4 ML SYRINGE SC SCH (08:20)
[2017-12-01] MEDS: Docusate Sodium 100 MG/10 ML UDCUP PO SCH ×2 (08:21→23:48)
[2017-12-01] MEDS: predniSONE 50 MG TAB PO SCH (08:22)
[2017-12-01] MEDS: Allopurinol 300 MG TAB PO SCH (08:22)
[2017-12-01 09:12] LABS: Band 21 % (5-11); Hypochromia SLIGHT = 6-15 cells (100X) (0-5/hpf); Lymphocytes 1 % (21-51); MDiff Complete? YES; Monocytes 2 % (0-10); Neutrophil 76 % (42-75); PLT Morphology Comment Appears Adequate; Polychromasia SLIGHT = 2-3 cells (100X) (0-2/hpf); Target Cells SLIGHT = 2-5 cells (100X) (0-1/hpf)
--- NOTE | 2017-12-01 10:34 | PRG ---
DATE OF SERVICE: 12/01/2017 SUBJECTIVE: This 67-year-old gentleman being seen for acute kidney injury with a history of lymphoma . The patient complains of leg swelling. Denies any nausea or vomiting. PHYSICAL EXAMINATION: GENERAL: Patient is awake, alert. VITAL SIGNS: Afebrile, pulse 72, breathing 16, blood pressure 100/55. HEAD/NECK: Normocephalic. Atraumatic. EYES: EOMI. No deformity. EARS: Clear. No ulcers. NOSE: Intact. No lesions. MOUTH: Clear. No discharge. THROAT: Clear. No exudate. LUNGS: Clear. No crackles. CARDIAC: S1, S2. No rub. ABDOMEN: Benign. BS+. GENITALIA/RECTUM: Crespo absent. BACK/EXTREMITIES: Lower extremities, edema 4+ Ulcer- NEUROLOGICAL: Alert and motor intact. SKIN: Rash- Bruise- LYMPHATICS: Edema- Ulcer- LABORATORY DATA: Show hemoglobin 11.7, creatinine is 1.6. ASSESSMENT AND RECOMMENDATIONS: 1. Acute kidney injury with chronic kidney disease, multifactorial, which include lymphoma kidney, m edication induced nephrotoxicity and acute tubular necrosis. No indication for dialysis and possibly cardiorenal syndrome. 2. Hypertension, stable. 3. Anemia, stable. 4. Edema. Can use Lasix p.r.n. 5. Medications based on glomerular filtration rate. I would recommend decreasing allopurinol to 200 if the creatinine goes more than 2.
[2017-12-01 10:42] VITALS: BMI 26.6
--- NOTE | 2017-12-01 16:27 | PDOC.PN ---
- Subjective Encounter Start Date: 12/01/17 Encounter Start Time: 07:20 Pt seen for followup re: OKSANA. Denies chest pain, shortness of breath or fevers. Received chemotherapy yesterday. - Objective Resuscitation Status: Resuscitation Status DNR:Do Not Resuscitate MAR Reviewed: Yes Vital Signs & Weight: Vital Signs (12 hours) Temp Pulse Resp 12/01/17 08:00 97 F L 73 20 Weight Admit Weight 179 lb 14.4 oz Weight 175 lb I&O: 11/30/17 12/01/17 12/02/17 06:59 06:59 06:59 Intake Total 480 600 Balance 480 600 Result Diagrams: 12/01/17 06:10 12/01/17 06:10 Phys Exam - Physical Examination Constitutional: NAD HEENT: moist MMs Neck: supple Respiratory: clear to auscultation bilateral Cardiovascular: RRR Gastrointestinal: soft Musculoskeletal: edema present Neurological: moves all 4 limbs Psychiatric: normal affect Dx/Plan (1) Acute kidney failure Status: Acute Qualifiers: Acute renal failure type: unspecified Qualified Code(s): N17.9 - Acute kidney failure, unspecified Comment: Creatinine worse, pt receiving IV albumin (2) Abnormal LFTs Code(s): R94.5 - ABNORMAL RESULTS OF LIVER FUNCTION STUDIES Status: Acute Comment: LFTs improving (3) Diffuse large B cell lymphoma Code(s): C83.30 - DIFFUSE LARGE B-CELL LYMPHOMA, UNSPECIFIED SITE Status: Acute Comment: had chemo yesterday - Plan * . Review of Systems - Review of Systems Constitutional: weakness, other. negative: fever, chills, sweats, malaise Respiratory: SOB with Excertion. negative: Cough, Shortness of Breath, Pleuritic Pain, Wheezing Cardiovascular: negative: chest pain, palpitations, orthopnea, paroxysmal nocturnal dyspnea, edema - Medications/Allergies Allergies/Adverse Reactions: Allergies Allergy/AdvReac Type Severity Reaction Status Date / Time Sulfa (Sulfonamide Allergy Verified 10/29/17 12:08 Antibiotics) Medications: Current Medications Al Hydroxide/Mg Hydroxide (Maalox) 15 ml PO Q4H PRN PRN Reason: Heartburn or Indigestion Albumin Human (Albumin 25%) 25 gm IVPB 0300,1500 [facility] Stop: 12/02/17 03:01 Last Admin: 12/01/17 15:31 Dose: 25 gm Allopurinol (Zyloprim) 300 mg PO DAILY [facility] Last Admin: 12/01/17 08:22 Dose: 300 mg Artificial Tears (Tears Naturale) 0 drop EA EYE PRN PRN PRN Reason: Dry Eyes Cefazolin Sodium (Ancef) 2 gm SLOW IVP WILLCALL [facility] Diphenhydramine HCl (Benadryl) 50 mg IVP ONE [facility] Stop: 12/01/17 23:59 Last Admin: 11/30/17 16:03 Dose: 50 mg Docusate Sodium (Colace Liquid) 100 mg PO BID [facility] Last Admin: 12/01/17 08:21 Dose: 100 mg Enoxaparin Sodium (Lovenox) 40 mg SC 0900 [facility] Last Admin: 12/01/17 08:20 Dose: 40 mg Guaifenesin (Robitussin Sf) 200 mg PO Q4H PRN PRN Reason: Cough Hydralazine HCl (Apresoline) 10 mg SLOW IVP Q4H PRN PRN Reason: Systolic BP > 180 Hydrocortisone Acetate (Anusol-Hc) 25 mg ID BIDPRN PRN PRN Reason: Hemorrhoids Hydrocortisone Sodium Succinate (Proctozone-Hc 2.5% Cream) 0 gm TOP Q8H PRN PRN Reason: RECTAL DISCOMFORT Last Admin: 11/27/17 21:27 Dose: 1 applic Fosaprepitant 150 mg/Miscellaneous Medication 1 each/ Sodium Chloride 145 mls @ 300 mls/hr IVPB ONE [facility] Stop: 12/01/17 23:59 Last Admin: 11/30/17 13:01 Dose: 145 mls Methylprednisolone Sodium Succinate 1 gm/ Miscellaneous Medication 1 each/ Sodium Chloride 108 mls @ 216 mls/hr IVPB ONE [facility] Stop: 12/01/17 23:59 Last Admin: 11/30/17 16:02 Dose: 108 mls Rituximab 500 mg/ Rituximab 250 mg/ Miscellaneous Medication 1 each/ Sodium Chloride 575 mls @ 0 mls/hr IVPB ONE [facility] PRN Reason: As Directed Stop: 12/01/17 23:59 Last Admin: 11/30/17 16:29 Dose: 575 mls Doxorubicin HCl 50 mg/Miscellaneous Medication 1 each/ Sodium Chloride 125 mls @ 214.286 mls/hr IVPB ONE [facility] Stop: 12/01/17 23:59 Last Admin: 11/30/17 13:51 Dose: 125 mls Vincristine Sulfate 1 mg/Miscellaneous Medication 1 each/ Sodium Chloride 51 mls @ 0 mls/hr FS ONE [facility] PRN Reason: As Directed Stop: 12/01/17 23:59 Last Admin: 11/30/17 13:48 Dose: 51 mls Cyclophosphamide 1 gm/Cyclophosphamide 500 mg/Miscellaneous Medication 1 each/ Sodium Chloride 325 mls @ 325 mls/hr IVPB ONE [facility] Stop: 12/01/17 23:59 Last Admin: 11/30/17 14:27 Dose: 325 mls Loperamide HCl (Imodium) 2 mg PO PRN PRN PRN Reason: Diarrhea/Loose Stools Loratadine (Claritin) 10 mg PO DAILYPRN PRN PRN Reason: Sinus Symptoms Magnesium Hydroxide (Milk Of Magnesium) 30 ml PO DAILYPRN PRN PRN Reason: Constipation Mineral Oil/White Petrolatum (Eucerin Cream) 0 gm TOP BIDPRN PRN PRN Reason: Dry Skin Ondansetron HCl (Zofran) 4 mg IVP Q6H PRN PRN Reason: Nausea/Vomiting Last Admin: 11/18/17 19:39 Dose: 4 mg Ondansetron HCl (Zofran Odt) 4 mg SL Q6H PRN PRN Reason: Nausea/Vomiting Palonosetron (Aloxi) 0.25 mg IVP ONE [facility] Stop: 12/01/17 23:59 Last Admin: 11/30/17 13:35 Dose: 0.25 mg Pantoprazole Sodium (Protonix) 40 mg PO DAILY [facility] Last Admin: 12/01/17 08:21 Dose: 40 mg Pegfilgrastim (Neulasta) 6 mg SC ONE [facility] Stop: 12/01/17 23:59 Phenol (Chloraseptic [place] 180 Ml Bot) 0 ml PO PRN PRN PRN Reason: Sore Throat Last Admin: 11/28/17 03:07 Dose: 1 applic Prednisone (Prednisone) 100 mg PO ASDIR [facility] Stop: 12/02/17 11:00 Prednisone (Prednisone) 100 mg PO QAM-WM [facility] Stop: 12/04/17 08:01 Last Admin: 12/01/17 08:22 Dose: 100 mg Senna (Senokot) 2 tab PO HSPRN PRN PRN Reason: Constipation Sodium Chloride ([place] Nasal [place] 0.65%) 0 ml EA NARE QIDPRN PRN PRN Reason: Nasal Congestion Sodium Chloride (Flush - Normal Saline) 10 ml IVF PRN PRN PRN Reason: Saline Flush Last Admin: 11/30/17 13:38 Dose: 10 ml
[2017-12-02] MEDS: Albumin 25% 25 GM/100 ML BOT IVPB SCH (02:13)
[2017-12-02 08:26] LABS: ALT (SGPT) 39 U/L (8-55); AST (SGOT) 60 U/L (5-34); Albumin 3.4 g/dL (3.4-4.8); Alkaline Phosphatase 293 U/L (40-150); Anion Gap 19 mmol/L (10-20); BUN (Urea Nitrogen) 62 mg/dL (8.4-25.7); Bilirubin, Total 2.2 mg/dL (0.2-1.2); Calc. Creatinine Clearance 50 mL/min (70-130); Calcium 8.2 mg/dL (7.8-10.44); Carbon Dioxide 17 mmol/L (23-31); Chloride 107 mmol/L (98-107); Estimated GFR-MDRD 44; Globulin 1.5 g/dL (2.4-3.5); Glucose 160 mg/dL (80-115); Potassium 4.5 mmol/L (3.5-5.1); Protein, Total 4.9 g/dL (5.8-8.1); Sodium 138 mmol/L (136-145); Uric Acid 4.6 mg/dL (3.5-7.2)
[2017-12-02 08:28] LABS: Band 15 % (5-11); Hemoglobin 11.7 g/dL (14.0-18.0); Lymphocytes 2 % (21-51); MDiff Complete? YES; Mean Corpuscular HGB CONC 30.8 g/dL (32.0-36.0); Mean Corpuscular Hemoglobin 27.8 pg (27.0-31.0); Mean Corpuscular Volume 90.1 fl (80.0-94.0); Mean Platelet Volume 8.5 fL (7.4-10.4); Monocytes 1 % (0-10); Neutrophil 82 % (42-75); Platelet Count 153 thou/uL (130-400); RBC Distribution Width 19.1 % (11.5-14.5); White Blood Cell (WBC) Count 69.6 thou/uL (4.8-10.8)
[2017-12-02] MEDS: Enoxaparin Sodium 40 MG/0.4 ML SYRINGE SC SCH (08:35)
[2017-12-02] MEDS: Allopurinol 300 MG TAB PO SCH (08:36)
[2017-12-02] MEDS: predniSONE 50 MG TAB PO SCH (08:49)
[2017-12-02] MEDS: Docusate Sodium 100 MG/10 ML UDCUP PO SCH ×2 (08:52→21:05)
--- NOTE | 2017-12-02 09:59 | PDOC.PN ---
- Subjective Encounter Start Date: 12/02/17 Encounter Start Time: 09:58 Pt seen for followup re: leucocytosis. Denies chest pain, shortness of breath, fevers or chills. No nausea or vomiting. - Objective Resuscitation Status: Resuscitation Status DNR:Do Not Resuscitate MAR Reviewed: Yes Vital Signs & Weight: Vital Signs (12 hours) Temp Pulse Resp BP Pulse Ox 12/02/17 09:00 97.5 F L 95 16 132/60 96 Weight Admit Weight 179 lb 14.4 oz Weight 175 lb I&O: 12/01/17 12/02/17 12/03/17 06:59 06:59 06:59 Intake Total 600 Balance 600 Result Diagrams: 12/02/17 07:55 12/02/17 07:55 Phys Exam - Physical Examination Constitutional: NAD HEENT: moist MMs Neck: supple Respiratory: clear to auscultation bilateral Cardiovascular: RRR Gastrointestinal: soft Neurological: moves all 4 limbs Psychiatric: normal affect Skin: no rash Dx/Plan (1) Leucocytosis Code(s): D72.829 - ELEVATED WHITE BLOOD CELL COUNT, UNSPECIFIED Status: Acute Comment: No evidence of infection, ? due to steroids received for chemo. Recheck CBC. (2) Acute kidney failure Status: Acute Qualifiers: Acute renal failure type: unspecified Qualified Code(s): N17.9 - Acute kidney failure, unspecified Comment: Creatinine improving (3) Abnormal LFTs Code(s): R94.5 - ABNORMAL RESULTS OF LIVER FUNCTION STUDIES Status: Acute Comment: LFTs improving (4) Diffuse large B cell lymphoma Code(s): C83.30 - DIFFUSE LARGE B-CELL LYMPHOMA, UNSPECIFIED SITE Status: Acute Comment: had chemo - Plan * . Review of Systems - Review of Systems Respiratory: negative: Cough, Dry, Shortness of Breath, Hemoptysis, SOB with Excertion, Pleuritic Pain, Sputum, Wheezing Cardiovascular: negative: chest pain, palpitations, orthopnea, paroxysmal nocturnal dyspnea, edema, light headedness Skin: negative: Rash, Lesions, Alfred, Bruising - Medications/Allergies Allergies/Adverse Reactions: Allergies Allergy/AdvReac Type Severity Reaction Status Date / Time Sulfa (Sulfonamide Allergy Verified 10/29/17 12:08 Antibiotics) Medications: Current Medications Al Hydroxide/Mg Hydroxide (Maalox) 15 ml PO Q4H PRN PRN Reason: Heartburn or Indigestion Allopurinol (Zyloprim) 300 mg PO DAILY [facility] Last Admin: 12/02/17 08:36 Dose: 300 mg Artificial Tears (Tears Naturale) 0 drop EA EYE PRN PRN PRN Reason: Dry Eyes Cefazolin Sodium (Ancef) 2 gm SLOW IVP WILLCALL [facility] Docusate Sodium (Colace Liquid) 100 mg PO BID [facility] Last Admin: 12/02/17 08:52 Dose: Not Given Enoxaparin Sodium (Lovenox) 40 mg SC 0900 [facility] Last Admin: 12/02/17 08:35 Dose: 40 mg Guaifenesin (Robitussin Sf) 200 mg PO Q4H PRN PRN Reason: Cough Hydralazine HCl (Apresoline) 10 mg SLOW IVP Q4H PRN PRN Reason: Systolic BP > 180 Hydrocortisone Acetate (Anusol-Hc) 25 mg NE BIDPRN PRN PRN Reason: Hemorrhoids Hydrocortisone Sodium Succinate (Proctozone-Hc 2.5% Cream) 0 gm TOP Q8H PRN PRN Reason: RECTAL DISCOMFORT Last Admin: 11/27/17 21:27 Dose: 1 applic Loperamide HCl (Imodium) 2 mg PO PRN PRN PRN Reason: Diarrhea/Loose Stools Loratadine (Claritin) 10 mg PO DAILYPRN PRN PRN Reason: Sinus Symptoms Magnesium Hydroxide (Milk Of Magnesium) 30 ml PO DAILYPRN PRN PRN Reason: Constipation Mineral Oil/White Petrolatum (Eucerin Cream) 0 gm TOP BIDPRN PRN PRN Reason: Dry Skin Ondansetron HCl (Zofran) 4 mg IVP Q6H PRN PRN Reason: Nausea/Vomiting Last Admin: 11/18/17 19:39 Dose: 4 mg Ondansetron HCl (Zofran Odt) 4 mg SL Q6H PRN PRN Reason: Nausea/Vomiting Pantoprazole Sodium (Protonix) 40 mg PO DAILY [facility] Last Admin: 12/02/17 08:36 Dose: 40 mg Phenol (Chloraseptic [place] 180 Ml Bot) 0 ml PO PRN PRN PRN Reason: Sore Throat Last Admin: 11/28/17 03:07 Dose: 1 applic Prednisone (Prednisone) 100 mg PO [facility] Stop: 12/02/17 11:00 Last Admin: 12/02/17 08:36 Dose: 100 mg Prednisone (Prednisone) 100 mg PO QAM-WM [facility] Stop: 12/04/17 08:01 Last Admin: 12/02/17 08:49 Dose: Not Given Senna (Senokot) 2 tab PO HSPRN PRN PRN Reason: Constipation Sodium Chloride ([place] Nasal [place] 0.65%) 0 ml EA NARE QIDPRN PRN PRN Reason: Nasal Congestion Sodium Chloride (Flush - Normal Saline) 10 ml IVF PRN PRN PRN Reason: Saline Flush Last Admin: 11/30/17 13:38 Dose: 10 ml
[2017-12-02 10:50] LABS: Hemoglobin 11.6 g/dL (14.0-18.0); Mean Corpuscular HGB CONC 31.4 g/dL (32.0-36.0); Mean Corpuscular Hemoglobin 28.2 pg (27.0-31.0); Mean Corpuscular Volume 89.8 fl (80.0-94.0); Mean Platelet Volume 8.7 fL (7.4-10.4); Platelet Count 149 thou/uL (130-400); RBC Distribution Width 18.9 % (11.5-14.5); Red Blood Cell (RBC) Count 4.13 mill/uL (4.70-6.10); White Blood Cell (WBC) Count 75.3 thou/uL (4.8-10.8)
[2017-12-02 10:56] LABS: Band 17 % (5-11); MDiff Complete? YES; Monocytes 3 % (0-10); Neutrophil 80 % (42-75)
--- NOTE | 2017-12-02 13:27 | PRG ---
DATE OF SERVICE: 12/02/2017 SUBJECTIVE: This is a 67-year-old gentleman being seen for acute kidney injury. The patient denies any nausea, vomiting, or chest pain. PHYSICAL EXAMINATION: GENERAL: Patient is awake and alert. VITAL SIGNS: Afebrile, pulse 75, breathing 16, and blood pressure 130/60. HEAD/NECK: Normocephalic. Atraumatic. EYES: EOMI. No deformity. EARS: Clear. No ulcers. NOSE: Intact. No lesions. MOUTH: Clear. No discharge. THROAT: Clear. No exudate. LUNGS: Clear. No crackles. CARDIAC: S1, S2. No rub. ABDOMEN: Benign. BS+. GENITALIA/RECTUM: Crespo absent. BACK/EXTREMITIES: Lower extremities shows 3+ edema. NEUROLOGICAL: Alert and motor intact. SKIN: Rash- Bruise- LYMPHATICS: Edema- Ulcer- LABORATORY DATA: Hemoglobin 11.6, creatinine 1.5. PLAN: 1. Acute kidney disease injury/chronic kidney disease stage 3, stable. No indication for dialysis. 2. Edema, continue Lasix 20 mg every other day to every day. The patient will need daily labs. 3. Hypoalbuminemia, stable. 4. Medications based on glomerular filtration rate are appropriate. Overall, prognosis is extremely poor. The above findings were discussed with the patient's daughter, who was present during the interview. The patient has chronic edema probably because of poor lymphatics as well as the overall very poor p rognosis due to underlying malignancy.
[2017-12-02] MEDS: Furosemide 20 MG TAB PO SCH (14:35)
[2017-12-03 06:41] LABS: ALT (SGPT) 42 U/L (8-55); AST (SGOT) 54 U/L (5-34); Albumin 3.3 g/dL (3.4-4.8); Alkaline Phosphatase 290 U/L (40-150); Anion Gap 15 mmol/L (10-20); BUN (Urea Nitrogen) 66 mg/dL (8.4-25.7); Bilirubin, Total 2.2 mg/dL (0.2-1.2); Calc. Creatinine Clearance 56 mL/min (70-130); Calcium 8.4 mg/dL (7.8-10.44); Carbon Dioxide 20 mmol/L (23-31); Chloride 109 mmol/L (98-107); Estimated GFR-MDRD 50; Globulin 1.5 g/dL (2.4-3.5); Glucose 144 mg/dL (80-115); Protein, Total 4.8 g/dL (5.8-8.1); Sodium 139 mmol/L (136-145); Uric Acid 4.8 mg/dL (3.5-7.2)
[2017-12-03 07:05] LABS: White Blood Cell (WBC) Count 94.5 thou/uL (4.8-10.8)
[2017-12-03 08:21] LABS: Anisocytosis SLIGHT = 6-15 cells (100X) (0-5/hpf); Band 24 % (5-11); Hemoglobin 11.7 g/dL (14.0-18.0); MDiff Complete? YES; Mean Corpuscular HGB CONC 30.9 g/dL (32.0-36.0); Mean Corpuscular Hemoglobin 27.9 pg (27.0-31.0); Mean Corpuscular Volume 90.1 fl (80.0-94.0); Mean Platelet Volume 9.8 fL (7.4-10.4); Monocytes 2 % (0-10); Neutrophil 74 % (42-75); PLT Morphology Comment Appears Decreased; Platelet Count 118 thou/uL (130-400)
[2017-12-03] MEDS: Furosemide 20 MG TAB PO SCH ×2 (09:00→15:14)
[2017-12-03] MEDS: Allopurinol 300 MG TAB PO SCH (09:00)
[2017-12-03] MEDS: predniSONE 50 MG TAB PO SCH (09:00)
[2017-12-03] MEDS: Enoxaparin Sodium 40 MG/0.4 ML SYRINGE SC SCH (09:36)
[2017-12-03] MEDS: Docusate Sodium 100 MG/10 ML UDCUP PO SCH ×2 (09:36→21:34)
--- NOTE | 2017-12-03 15:53 | PDOC.PN ---
- Subjective Encounter Start Date: 12/03/17 Encounter Start Time: 12:00 Pt seen for followup re: OKSANA. Feels better. Ambulated 170 feet. - Objective Resuscitation Status: Resuscitation Status DNR:Do Not Resuscitate MAR Reviewed: Yes Vital Signs & Weight: Vital Signs (12 hours) Temp Pulse Resp Pulse Ox 12/03/17 08:00 97.8 F 87 16 93 L Weight Admit Weight 179 lb 14.4 oz Weight 175 lb I&O: 12/02/17 12/03/17 12/04/17 06:59 06:59 06:59 Intake Total 2640 480 Output Total 375 Balance 2265 480 Result Diagrams: 12/03/17 06:05 12/03/17 06:05 Phys Exam - Physical Examination Constitutional: NAD HEENT: moist MMs Neck: supple Respiratory: clear to auscultation bilateral Cardiovascular: RRR Musculoskeletal: edema present Neurological: moves all 4 limbs Psychiatric: normal affect Dx/Plan (1) Acute kidney failure Status: Acute Qualifiers: Acute renal failure type: unspecified Qualified Code(s): N17.9 - Acute kidney failure, unspecified Comment: Creatinine improving (2) Leucocytosis Code(s): D72.829 - ELEVATED WHITE BLOOD CELL COUNT, UNSPECIFIED Status: Acute Comment: No evidence of infection, ? due to steroids received for chemo. Oncology service aware, no acute concerns. (3) Abnormal LFTs Code(s): R94.5 - ABNORMAL RESULTS OF LIVER FUNCTION STUDIES Status: Acute Comment: LFTs improving (4) Diffuse large B cell lymphoma Code(s): C83.30 - DIFFUSE LARGE B-CELL LYMPHOMA, UNSPECIFIED SITE Status: Acute Comment: for chemo next week. - Plan * . Likely home in 24 hrs. Review of Systems - Review of Systems Respiratory: negative: Cough, Shortness of Breath, SOB with Excertion, Pleuritic Pain, Wheezing Cardiovascular: negative: chest pain, palpitations, orthopnea, paroxysmal nocturnal dyspnea, edema, light headedness - Medications/Allergies Allergies/Adverse Reactions: Allergies Allergy/AdvReac Type Severity Reaction Status Date / Time Sulfa (Sulfonamide Allergy Verified 10/29/17 12:08 Antibiotics) Medications: Current Medications Al Hydroxide/Mg Hydroxide (Maalox) 15 ml PO Q4H PRN PRN Reason: Heartburn or Indigestion Allopurinol (Zyloprim) 300 mg PO DAILY [facility] Last Admin: 12/03/17 09:00 Dose: 300 mg Artificial Tears (Tears Naturale) 0 drop EA EYE PRN PRN PRN Reason: Dry Eyes Cefazolin Sodium (Ancef) 2 gm SLOW IVP WILLCALL [facility] Docusate Sodium (Colace Liquid) 100 mg PO BID [facility] Last Admin: 12/03/17 09:36 Dose: Not Given Enoxaparin Sodium (Lovenox) 40 mg SC 0900 [facility] Last Admin: 12/03/17 09:36 Dose: 40 mg Furosemide (Lasix) 20 mg PO 0900,1400 [facility] Last Admin: 12/03/17 15:14 Dose: 20 mg Guaifenesin (Robitussin Sf) 200 mg PO Q4H PRN PRN Reason: Cough Hydralazine HCl (Apresoline) 10 mg SLOW IVP Q4H PRN PRN Reason: Systolic BP > 180 Hydrocortisone Acetate (Anusol-Hc) 25 mg MD BIDPRN PRN PRN Reason: Hemorrhoids Hydrocortisone Sodium Succinate (Proctozone-Hc 2.5% Cream) 0 gm TOP Q8H PRN PRN Reason: RECTAL DISCOMFORT Last Admin: 11/27/17 21:27 Dose: 1 applic Loperamide HCl (Imodium) 2 mg PO PRN PRN PRN Reason: Diarrhea/Loose Stools Loratadine (Claritin) 10 mg PO DAILYPRN PRN PRN Reason: Sinus Symptoms Magnesium Hydroxide (Milk Of Magnesium) 30 ml PO DAILYPRN PRN PRN Reason: Constipation Mineral Oil/White Petrolatum (Eucerin Cream) 0 gm TOP BIDPRN PRN PRN Reason: Dry Skin Ondansetron HCl (Zofran) 4 mg IVP Q6H PRN PRN Reason: Nausea/Vomiting Last Admin: 11/18/17 19:39 Dose: 4 mg Ondansetron HCl (Zofran Odt) 4 mg SL Q6H PRN PRN Reason: Nausea/Vomiting Pantoprazole Sodium (Protonix) 40 mg PO DAILY [facility] Last Admin: 12/03/17 09:00 Dose: 40 mg Phenol (Chloraseptic [place] 180 Ml Bot) 0 ml PO PRN PRN PRN Reason: Sore Throat Last Admin: 11/28/17 03:07 Dose: 1 applic Prednisone (Prednisone) 100 mg PO [facility] Stop: 12/04/17 08:01 Last Admin: 12/03/17 09:00 Dose: 100 mg Senna (Senokot) 2 tab PO HSPRN PRN PRN Reason: Constipation Sodium Chloride ([place] Nasal [place] 0.65%) 0 ml EA NARE QIDPRN PRN PRN Reason: Nasal Congestion Sodium Chloride (Flush - Normal Saline) 10 ml IVF PRN PRN PRN Reason: Saline Flush Last Admin: 11/30/17 13:38 Dose: 10 ml
[2017-12-04 08:31] VITALS: BP 122/52; TEMP 96.5
[2017-12-04 08:31] LABS: Hemoglobin 11.2 g/dL (14.0-18.0); Mean Corpuscular HGB CONC 31.5 g/dL (32.0-36.0); Mean Corpuscular Hemoglobin 28.2 pg (27.0-31.0); Mean Corpuscular Volume 89.5 fl (80.0-94.0); Mean Platelet Volume 10.3 fL (7.4-10.4); Platelet Count 81 thou/uL (130-400); RBC Distribution Width 18.9 % (11.5-14.5); Red Blood Cell (RBC) Count 3.98 mill/uL (4.70-6.10); White Blood Cell (WBC) Count 87.9 thou/uL (4.8-10.8)
[2017-12-04 08:36] LABS: Uric Acid 4.8 mg/dL (3.5-7.2)
[2017-12-04 08:51] LABS: Chloride 109 mmol/L (98-107); Potassium 4.7 mmol/L (3.5-5.1); Sodium 140 mmol/L (136-145)
[2017-12-04 08:52] LABS: Calcium 8.1 mg/dL (7.8-10.44); Glucose 157 mg/dL (80-115)
[2017-12-04 08:54] LABS: Anion Gap 14 mmol/L (10-20); Carbon Dioxide 22 mmol/L (23-31)
[2017-12-04 08:56] LABS: BUN (Urea Nitrogen) 69 mg/dL (8.4-25.7); Calc. Creatinine Clearance 57 mL/min (70-130); Estimated GFR-MDRD 52
[2017-12-04 09:23] LABS: Band 22 % (5-11); Hypersemented Neutrophil SLIGHT; Hypochromia SLIGHT = 6-15 cells (100X) (0-5/hpf); MDiff Complete? YES; Monocytes 4 % (0-10); Neutrophil 74 % (42-75); PLT Morphology Comment Appears Decreased; Polychromasia MODERATE = 3-4 cells (100X) (0-2/hpf); Target Cells SLIGHT = 2-5 cells (100X) (0-1/hpf)
[2017-12-04] MEDS: predniSONE 50 MG TAB PO SCH (09:32)
[2017-12-04] MEDS: Allopurinol 300 MG TAB PO SCH (09:32)
[2017-12-04] MEDS: Furosemide 20 MG TAB PO SCH ×2 (09:32→14:30)
[2017-12-04] MEDS: Enoxaparin Sodium 40 MG/0.4 ML SYRINGE SC SCH (09:34)
[2017-12-04] MEDS: Docusate Sodium 100 MG/10 ML UDCUP PO SCH (09:34)
--- NOTE | 2017-12-04 10:27 | PRG ---
Patient Name: Erwin BRYANT Date of service: 12/04/2017 Subjective: Patient was seen and examined at bedside and overnight events noted. Patient denies any shortness of breath or chest pain or palpitation. No history of nausea or vomiting or diarrhea or fever or chills or cramps. Objective: General: This is a well-built male in no apparent distress. Vital signs: Temperature 96.5, pulse 104, respiratory rate 18, blood pressure 122/52. HEENT: Atraumatic, normocephalic. Oral mucosa is moist. Neck: Supple. Cardiovascular: S1 S2 heard. Rate and rhythm regular. Respiratory: Clear to auscultation. Gastrointestinal: Abdomen is soft. Musculoskeletal: No tenderness. 3+ edema. Dermatologic: No skin rash. Neurologic: Alert and awake and oriented X3. No focal neurologic deficits. Moving all the extremit ies. Psychiatric: Mood and affect normal. LABORATORY DATA: Potassium is 4.7, BUN 69, creatinine is 1.37. ASSESSMENT AND PLAN: 1. Acute kidney injury on chronic kidney disease stage 3. Renal function with good improvement and is stable. The patient continues to have chronic edema, multifactorial. Okay with the p.r.n. use of Lasix with close monitoring of renal function and electrolytes. 2. Hypoalbuminemia from his chronic disease. 3. Hypertension, stable. 4. Anemia. 5. Leukocytosis. Prognosis remains guarded. Limit fluid intake and on Lasix. I will follow.
--- NOTE | 2017-12-04 10:48 | PRG ---
DATE OF SERVICE: 12/03/2017 at 10:00 a.m. SUBJECTIVE: This is a 67-year-old gentleman being seen for acute kidney injury. The patient denies any nausea, vomiting, or chest pain. OBJECTIVE: GENERAL: The patient is awake, alert. VITAL SIGNS: Afebrile, pulse 87, breathing 16, blood pressure 120/56. GENERAL APPEARANCE AND MENTAL STATUS: Fair. HEAD/NECK: Normocephalic. Atraumatic. EYES: EOMI. No deformity. EARS: Clear. No ulcers. NOSE: Intact. No lesions. MOUTH: Clear. No discharge. THROAT: Clear. No exudate. LUNGS: Clear. No crackles. CARDIAC: S1, S2. No rub. ABDOMEN: Benign. BS+. GENITALIA/RECTUM: Crespo absent. BACK/EXTREMITIES: 4+ edema. NEUROLOGICAL: Alert and motor intact. SKIN: Rash- Bruise- LYMPHATICS: Edema- Ulcer- LABORATORY DATA: Creatinine 1.4. ASSESSMENT: 1. Acute kidney injury, chronic kidney disease, stable. 2. Hypertension, stable. 3. Anemia, stable. 4. Metabolic acidosis, stable. PLAN: No indication for dialysis. Use Lasix p.r.n. for edema. Overall, prognosis is extremely poor , probably has lymphoma kidney.
[2017-12-04 12:52] LABS: ALT (SGPT) 42 U/L (8-55); AST (SGOT) 48 U/L (5-34); Albumin 3.1 g/dL (3.4-4.8); Alkaline Phosphatase 280 U/L (40-150); Anion Gap 15 mmol/L (10-20); BUN (Urea Nitrogen) 68 mg/dL (8.4-25.7); Bilirubin, Total 2.2 mg/dL (0.2-1.2); Calc. Creatinine Clearance 58 mL/min (70-130); Calcium 8.2 mg/dL (7.8-10.44); Carbon Dioxide 20 mmol/L (23-31); Chloride 109 mmol/L (98-107); Estimated GFR-MDRD 53; Globulin 1.4 g/dL (2.4-3.5); Glucose 139 mg/dL (80-115); LDH 614 U/L (125-220); Potassium 4.8 mmol/L (3.5-5.1); Protein, Total 4.5 g/dL (5.8-8.1); Sodium 139 mmol/L (136-145); Uric Acid 4.7 mg/dL (3.5-7.2)
--- NOTE | 2017-12-04 14:47 | DIS ---
DATE OF ADMISSION: 11/20/2017 DATE OF DISCHARGE: 12/04/2017 SERVICE LOCATION: [facility]. PRIMARY CARE PROVIDER: ASA Brock DISCHARGE DIAGNOSES: 1. Diffuse large B cell lymphoma. 2. Biliary obstruction. 3. Acute kidney injury. 4. Hypercalcemia. CONDITION OF PATIENT ON THE DAY OF DISCHARGE: Stable. I assessed Mr. Montelongo on the day of dischar . He denies any chest pain or shortness of breath. Vital signs are stable. S1 and S2 are heard, regular. Lungs are clear to auscultation bilaterally. DISCHARGE MEDICATIONS: Lasix 20 mg 2 times a day. CONSULTATIONS DURING THIS HOSPITALIZATION: General Surgery, Dr. Narvaez; Gastroenterology, Dr. Anna vásquez; Oncology, Dr. Gomez; and Nephrology, Dr. Tenorio. HOSPITAL COURSE: Mr. Montelongo is a pleasant 67-year-old gentleman who was admitted to [facility] on 11/18/2017 for metastatic cancer, hypercalcemia, acute kidney injury, cholelit hiasis and suspected cholecystitis. He received Zometa. CT scan of the abdomen and pelvis on 2017 showed extensive intraabdominal lymphadenopathy, extensive hepatic, pericardial and splenic lesi ons compatible with extensive metastatic disease as well as abnormal enhancement of the gallbladder w ith areas of hyperdensity within the gallbladder, compatible with acute cholecystitis and gallstones. He also had a left-sided renal calculus with nonobstructing, but large left ureteral calculus. He was seen by General Surgery and Oncology Services. It was felt that his right upper quadrant pain was adequately explained by the extensive metastases and even if he has cholecystitis, he is not suresh lly an operative candidate. He was also seen by Oncology service and underwent CT-guided biopsy of l iver mass. Pathologic diagnosis was consistent with diffuse large B cell lymphoma. On 11/21/2017, b one scan did not show any evidence of osseous metastatic disease. He was seen by Gastroenterology [facility] on 11/21/2017 for abnormal liver function tests. He underwent ERCP with sphincterotomy and devika iary stent placement on 11/22/2017. On 11/27/2017, he had an abdominal ultrasound which showed annie lithiasis and gallbladder inflammation as well as liver masses. On 11/29/2017, he underwent left sub clavian MediPort placement. He received chemotherapy twice during this hospitalization and will rece carmen chemotherapy as outpatient. He also developed acute renal insufficiency and was seen by Nephrology Service. His creatinine decre ased to 1.34 on the day of discharge, from a peak of 2.51 on 11/24/2017. He has been started on furo semide for volume overload. On the day of discharge, he has sodium 139, potassium 4.8, creatinine 1.34, white count 87,900, hemog lobin 11.2, and platelet count 81,000. Many thanks for allowing me to participate in your patient's care. Please feel free to contact me wi th any questions or concerns. DISCHARGE DESTINATION: Home. TOTAL AMOUNT OF TIME SPENT COORDINATING THIS DISCHARGE: 33 minutes.
== END 2017-12-04 15:55 | disposition home or self-care (01) | DRG 840 ==
LOC: ERS 11:44 → T4-B 13:20 → ONC 11-20 10:44
PROVIDERS: ADMIT Internal Medicine; ATTEND Internal Medicine
PROC: 0FB03ZX Excision of Liver, Percutaneous Approach, Diagnostic (ICD-10-PCS; 2017-11-20)
PROC: 0F798DZ Dilation of Common Bile Duct with Intraluminal Device, Via Natural or Artificial Opening Endoscopic (ICD-10-PCS; principal; 2017-11-22)
PROC: 0JH60WZ Insertion of Totally Implantable Vascular Access Device into Chest Subcutaneous Tissue and Fascia, Open Approach (ICD-10-PCS; 2017-11-29)
PROC: 02HV33Z Insertion of Infusion Device into Superior Vena Cava, Percutaneous Approach (ICD-10-PCS; 2017-11-29)
PROC: B518ZZA Fluoroscopy of Superior Vena Cava, Guidance (ICD-10-PCS; 2017-11-29)
DX: C83.33 Diffuse large B-cell lymphoma, intra-abdominal lymph nodes (principal); G93.41 Metabolic encephalopathy; N17.9 Acute kidney failure, unspecified; C78.89 Secondary malignant neoplasm of other digestive organs; C78.7 Secondary malignant neoplasm of liver and intrahepatic bile duct; E87.2 Acidosis; E83.52 Hypercalcemia; E87.1 Hypo-osmolality and hyponatremia; K80.11 Calculus of gallbladder with chronic cholecystitis with obstruction; R63.0 Anorexia; I10 Essential (primary) hypertension; Z68.26 Body mass index [BMI] 26.0-26.9, adult; Z66 Do not resuscitate; Z88.2 Allergy status to sulfonamides; Z87.891 Personal history of nicotine dependence; D63.0 Anemia in neoplastic disease; E88.09 Other disorders of plasma-protein metabolism, not elsewhere classified; E87.5 Hyperkalemia; K86.81 Exocrine pancreatic insufficiency
CPT/HCPCS: 36415; 36416; 47000; 71045; 74177; 74330; 76705; 77012; 78226; 78306; 80053; 81003; 81015; 82140; 82248; 82378; 83605; 83615; 83690; 83930; 83935; 84165; 84550; 85007; 85025; 85027; 85610; 85730; 86301; 88307; 88341; 88342; 88377; 90471; 90670; 96361; 96365; A4216; A9503; A9537; C1788; C9113; G0009; G8978-GP-CL; G8979-GP-CJ; G8987-GO-CK; G8988-GO-CI; J0696; J1100; J1200; J1453; J1642; J1650; J1956; J2001; J2185; J2250; J2270; J2405; J2469; J2505; J2704; J2930; J3010; J3489; J7050; J9000; J9070; J9310; J9370; P9047; Q9961

== ENCOUNTER 2017-12-06 08:53 | Emergency (ER) | payer MEDICARE, OTHER ==
[2017-12-06 10:00] LABS: Hemoglobin 10.3 g/dL (14.0-18.0); Mean Corpuscular HGB CONC 32.3 g/dL (32.0-36.0); Mean Corpuscular Volume 89.6 fl (80.0-94.0); RBC Distribution Width 19.4 % (11.5-14.5); Red Blood Cell (RBC) Count 3.55 mill/uL (4.70-6.10); White Blood Cell (WBC) Count 5.6 thou/uL (4.8-10.8)
[2017-12-06 10:04] LABS: INR-International Normal Ratio 1.1; PTT 32.2 SEC (22.9-36.1); Prothrombin Time 14.8 SEC (12.0-14.7)
[2017-12-06 10:21] LABS: Anisocytosis SLIGHT = 6-15 cells (100X) (0-5/hpf); Band 3 % (5-11); Lymphocytes 3 % (21-51); MDiff Complete? YES; Mean Platelet Volume 12.3 fL (7.4-10.4); Monocytes 2 % (0-10); Neutrophil 92 % (42-75); PLT Morphology Comment Appears Decreased; Platelet Count 21 thou/uL (130-400)
[2017-12-06 10:25] LABS: CKMB 0.9 ng/mL (0-6.6); Troponin I Less than 0.010 ng/mL (< 0.028)
[2017-12-06 10:26] LABS: ALT (SGPT) 42 U/L (8-55); AST (SGOT) 46 U/L (5-34); Albumin 2.7 g/dL (3.4-4.8); Alkaline Phosphatase 249 U/L (40-150); Anion Gap 14 mmol/L (10-20); BUN (Urea Nitrogen) 54 mg/dL (8.4-25.7); Bilirubin, Total 2.2 mg/dL (0.2-1.2); Calc. Creatinine Clearance 0 mL/min (70-130); Calcium 7.4 mg/dL (7.8-10.44); Carbon Dioxide 23 mmol/L (23-31); Chloride 109 mmol/L (98-107); Estimated GFR-MDRD 84; Glucose 123 mg/dL (80-115); Potassium 4.6 mmol/L (3.5-5.1); Protein, Total 3.7 g/dL (5.8-8.1); Sodium 141 mmol/L (136-145)
--- NOTE | 2017-12-06 11:21 | RAD ---
PORTABLE CHEST: HISTORY: Shortness of breath and dyspnea. COMPARISON: 11/29/17. FINDINGS: Both CP angles are blunted suggesting small bilateral effusions. Probable bibasilar atelectasis. Ca lcified granuloma in the peripheral right lung again noted. A MediPort-type catheter appears in adeq uate position overlying the SVC. The upper lung holden are clear. IMPRESSION: The above findings showed no significant change from 11/29/17. POS: [facility]
[2017-12-06] MEDS ORDERED: Senokot 8.6 MG TAB PO PRN (14:11)
[2017-12-06] MEDS ORDERED: Sodium Chloride 0.9% 1,000 ML IV SCH (14:15)
[2017-12-06] MEDS ORDERED: Furosemide 40 MG/4 ML VIAL SLOW IVP SCH (14:15)
== END 2017-12-06 17:42 ==
LOC: ERS 08:53
DX: R06.00 Dyspnea, unspecified (principal); R60.0 Localized edema; D69.6 Thrombocytopenia, unspecified; I10 Essential (primary) hypertension; Z87.891 Personal history of nicotine dependence; Z87.442 Personal history of urinary calculi
CPT/HCPCS: 71045; 80053; 82553; 83880; 84484; 85025; 85610; 85730; 87040; 93005; P9045

== ENCOUNTER 2017-12-07 18:23 | Inpatient (IN) | payer MEDICARE ==
[2017-12-07] MEDS ORDERED: Cefepime 2 GM, Syringe 2.5 ML in Sterile Water 10 ML SLOW IVP SCH (19:30)
[2017-12-07 19:42] LABS: Hemoglobin 11.1 g/dL (14.0-18.0); Mean Corpuscular HGB CONC 31.5 g/dL (32.0-36.0); Mean Corpuscular Hemoglobin 28.7 pg (27.0-31.0); Mean Corpuscular Volume 91.1 fl (80.0-94.0); Mean Platelet Volume 15.1 fL (7.4-10.4); Platelet Count 11 thou/uL (130-400); RBC Distribution Width 19.3 % (11.5-14.5); Red Blood Cell (RBC) Count 3.87 mill/uL (4.70-6.10); White Blood Cell (WBC) Count 0.1 thou/uL (4.8-10.8)
[2017-12-07 19:44] LABS: INR-International Normal Ratio 1.2; PTT 40.5 SEC (22.9-36.1); Prothrombin Time 14.9 SEC (12.0-14.7)
--- NOTE | 2017-12-07 19:44 | RAD ---
PORTABLE UPRIGHT FRONTAL CHEST RADIOGRAPH 12/07/17 at 7:27 p.m. COMPARISON: 12/07/17, 9:44 a.m. HISTORY: Respiratory distress and cough. FINDINGS: There is a left sided Port-A-Cath, distal tip overlying the region of the cavoatrial junction. Inspiration is shallow, limiting detailed assessment. There are increased linear interstitial densiti es in the perihilar regions and both lung bases, slightly more prominent than on the study performed earlier on 12/07/17. Findings may signify pulmonary edema or basilar infectious pneumonitis. Recommend followup PA and lateral imaging of the chest following treatment. IMPRESSION: Increased density in the perihilar regions and both lung bases as detailed above. POS: MILENA
[2017-12-07 19:59] LABS: ALT (SGPT) 42 U/L (8-55); AST (SGOT) 36 U/L (5-34); Albumin 2.7 g/dL (3.4-4.8); Alkaline Phosphatase 245 U/L (40-150); Anion Gap 13 mmol/L (10-20); BUN (Urea Nitrogen) 49 mg/dL (8.4-25.7); Bilirubin, Total 2.2 mg/dL (0.2-1.2); CK (CPK) 17 U/L (30-200); Calc. Creatinine Clearance 0 mL/min (70-130); Calcium 7.9 mg/dL (7.8-10.44); Carbon Dioxide 25 mmol/L (23-31); Chloride 106 mmol/L (98-107); Estimated GFR-MDRD 72; Globulin 1.6 g/dL (2.4-3.5); Glucose 145 mg/dL (80-115); Lipase 7 U/L (8-78); Magnesium 1.8 mg/dL (1.6-2.6); Potassium 5.1 mmol/L (3.5-5.1); Protein, Total 4.3 g/dL (5.8-8.1); Sodium 139 mmol/L (136-145)
[2017-12-07 20:00] LABS: CKMB 0.8 ng/mL (0-6.6); Troponin I Less than 0.010 ng/mL (< 0.028)
[2017-12-07 20:32] LABS: Actual Bicarbonate (HCO3a) 25.6 mEq/L (22-26); Base Excess (BEa) 0.9 mEq/L (0 (+/-) 2.5); Hemoglobin (Hb) 9.9 g/dL (14.0-18.0); O2 Tension (PaO2) 71.5 mmHg (80.0-100.0); pH, Arterial 7.41 (7.35-7.45)
[2017-12-07 20:33] LABS: Calcium, Ionized 1.1 mmol/L (1.12-1.30)
[2017-12-07 20:34] LABS: Analyzer IN Cardio ER; Puncture Site R RADIAL
[2017-12-07] MEDS ORDERED: Dexamethasone 4 mg/ml Vial ONE (20:44)
[2017-12-07] MEDS ORDERED: Lorazepam 2 MG/ML VIAL ONE (20:57)
--- NOTE | 2017-12-07 21:24 | ULT ---
ULTRASOUND ABDOMEN LIMITED: (RIGHT UPPER QUADRANT) DATE: 12/07/17 TIME: 8:47 p.m. HISTORY: 67-year-old with fever and right upper quadrant abdominal pain. COMPARISON: Gallbladder ultrasound of 11/27/17. FINDINGS: There are multiple solid hypoechoic masses throughout the liver. There is a small amount of free flui d around the liver. There is a small right pleural effusion. The pancreas is diffusely enlarged and h as heterogeneous echogenicity. There is no hydronephrosis of the right kidney. The gallbladder and co mmon duct are obscured by shadowing from bowel gas. Other than the nonvisualization of the gallbladde r, no interval change is detected compared to the prior study. IMPRESSION: 1. Multiple hepatic masses consistent with malignancy, either metastatic disease or multicentric hepatocellular carcinoma. Metastatic disease is favored. 2. Ascites. 3. Small right pleural effusion. 4. Gallbladder and common duct are obscured. 5. Diffuse enlargement of the pancreas, suspicious for acute pancreatitis. Recommend clinical co rrelation. VENANCIO Diaz POS: MIRIAN
[2017-12-07] MEDS ORDERED: Norepinephrine 8 MG in Sodium Chloride 0.9% 250 ML 242 ML IVPB PRN (21:53)
[2017-12-07 23:37] LABS: Lactic Acid 3.1 mmol/L (0.5-2.2)
[2017-12-08] MEDS ORDERED: Acetaminophen 325 MG TAB PO PRN (01:30)
[2017-12-08] MEDS ORDERED: Sodium Chloride 0.9% 1,000 ML IV SCH (01:30)
[2017-12-08] MEDS ORDERED: Ondansetron HCl/PF 4 MG/2 ML Vial IVP PRN (01:30)
[2017-12-08] MEDS ORDERED: Ondansetron ODT 4 MG TAB SL PRN (01:30)
[2017-12-08] MEDS ORDERED: HYDROcodone/Acetaminophen 5/325 mg Tablet PO PRN ×2 (01:30)
[2017-12-08] MEDS ORDERED: Acetaminophen 500 MG TAB PO PRN (02:11)
--- NOTE | 2017-12-08 02:29 | PDOC.EVN ---
Event Note - Event Note Event Note: H&P dictation [id number]
--- NOTE | 2017-12-08 03:33 | HP ---
CHIEF COMPLAINT: Respiratory distress. HISTORY OF PRESENT ILLNESS: This is a 67-year-old male with a recent diagnosis of metastatic B-cell lymphoma, hypertension, and bilateral lower extremity swelling. The patient was recently hospitalized and subsequently discharged to [facility]. He was also recently started on chemotherapy for his new lymphoma diagnosis. He was referred back to our facility for difficulty breathing. At the time of my evaluation, the patient has already been seen in the emergency department and started on empiric antibiotics along with a BiPAP for his respiratory distress. The patient wants to know how long he will be here, specifically in the Intensive Care Unit and also broadly in the hospital. He states that he does not want to be here at this point in time. Denies any ongoing fever. The patient appears to be tolerating the BiPAP reasonably well. He has been able to intermittently sleep with the BiPAP on as well. REVIEW OF SYSTEMS: Constitutional: Reported history of chills without fever. HEENT: No active headache, dizziness, lightheadedness, or vision changes. Cardiovascular: No chest pain, chest pressure, palpitations, or left-sided numbness or weakness. Respiratory: Shortness of breath as above. No complaint of a productive cough. Gastrointestinal: Denies any nausea, vomiting , abdominal pain, diarrhea, or constipation. Genitourinary: Denies any dysuria or change in urinary color, odor, or output. Musculoskeletal: No new myalgias or arthralgias per the patient. PAST MEDICAL HISTORY: 1. Recent diagnosis of metastatic lymphoma. 2. Hypertension. 3. History of prior lithotripsy. HOME MEDICATIONS: Please see the EMR for full listing. His current confirmed list includes, 1. Benzocaine/menthol sore throat lozenges. 2. Clonidine 0.1 mg p.o. q.6 hours. 3. Loperamide 2 mg p.o. p.r.n. 4. Trazodone 50 mg p.o. at bedtime. 5. Simethicone 80 mg p.o. at bedtime p.r.n. 6. Ondansetron 4 mg p.o. q.4 hours p.r.n. 7. Guaifenesin 200 mg p.o. q.4 hours p.r.n. 8. Calcium carbonate 500 mg p.o. daily. 9. Acetaminophen 1000 mg p.o. q.6 hours p.r.n. 10. Polyethylene glycol 3350, 17 grams p.o. daily p.r.n. 11. Pantoprazole 40 mg p.o. daily. 12. Multivitamin 1 tab p.o. daily. 13. Furosemide 20 mg p.o. b.i.d. 14. Allopurinol 100 mg p.o. daily. 15. Ipratropium and albuterol sulfate 3 mL nebs q.i.d. p.r.n. ALLERGIES: SULFA ANTIBIOTICS, without a specified reaction. FAMILY HISTORY: No known family history of cancers or lymphomas. SOCIAL HISTORY: No tobacco. Intermittent alcohol use. No illicit drug use. The patient on a previous hospitalization recently was designated as DO NOT RESUSCITATE. However, at this point in time, the patient states that he wishes to have everything "done," and that he is not ready to "give up." This is presumed to be FULL CODE, but would benefit from being further clarified. The patient may also benefit from a palliative consult as well. PHYSICAL EXAMINATION: GENERAL: The patient is awake, alert, appropriate. BiPAP is in place. HEENT: Normocephalic, atraumatic. Dry mucous membranes. Equal ocular motions are intact. CARDIOVASCULAR: S1, S2. Prominent BiPAP sounds obscuring heart tones. Pulses 2+ in bilateral upper extremities. 3+ bilateral pitting pedal edema. RESPIRATORY: Coarse breath sounds throughout. Difficulty assessing inspiratory effort with BiPAP in place. ABDOMEN: Positive bowel sounds. Obese, soft, nontender to palpation. MUSCULOSKELETAL: Moving all 4 extremities independently. LABORATORY DATA AND IMAGING: WBC 0.1, hemoglobin 11.1, hematocrit 35.2, platelets of 11. PT 14.9, INR 1.2. ABG, pH of 7.41, pCO2 of 41, pO2 of 71.5, bicarbonate 25.6. CMP: Sodium 139, potassium 5.1, chloride 106, bicarbonate 25 , BUN is 49, creatinine 1.03, glucose 145. Initial lactic acid is 5.3, followed by 3.1. Calcium 7.9, magnesium 1.8, total bilirubin 2.2, AST 36, ALT 42, alkaline phosphatase 245. Troponin is less than 0.01. Natriuretic peptide 73.2, total protein 4.3, albumin 2.7, lipase of 7, TSH 1.7470, cortisol 55.8. 12/07/2017 chest x-ray impression: Increased density in the perihilar regions in both lung bases as detailed above. 12/07/2017 abdomen ultrasound impression : Multiple hepatic masses consistent with malignancy, either metastatic disease or multicentric hepatocellular carcinoma. Metastatic disease is favored. Ascites. Small right pleural effusion. Gallbladder and common bile duct are obscured. Diffuse enlargement of the pancreas, suspicious for acute pancreatitis. Recommended clinical correlation. ASSESSMENT AND PLAN: A 67-year-old male presenting with chief complaint of shortness of breath. 1. Shortness of breath, concern for pneumonitis with accompanying leukopenia and thrombocytopenia as well. The patient has been placed on empiric antibiotics including vancomycin and cefepime to cover for potential healthcare- acquired organisms. When sufficiently stable, will check CTA to evaluate for possible PE. 2. Neutropenia in the setting of active chemotherapy for lymphoma. The patient has been placed on neutropenic precautions. The patient also has what has been previously described to me as posterior skin lesion; however, it does appear to be roughly dermatomal in shape and to have various crusting lesions in various stages of healing consistent with potential shingles. Will empirically start the patient on acyclovir as well 500 mg p.o. 5 times a day. 3. Thrombocytopenia. Patient rec'd platelet transfusion in the ER. Continue close monitoring including serial recheck. Could be related to atypical pneumonia or underlying oncologic process and treatment. 4. History of lymphoma, metastatic disease. We will consult Oncology. Unclear of the patient's long-term prognosis, but I suspect that Palliative Care consultation will be beneficial as well. Based on the current assessment, patient has an overall guarded skilled nursing prognosis. 5. Sepsis in the setting of leukopenia and hypoxia with an elevated lactic acid and presumed source of infection to be initially pulmonary. See empiric regimen as above. IV fluids. The patient currently does not appear to be needing pressor support, but if needed, we will have low threshold to start. 6. Diet. As tolerated once the patient is off BiPAP. 7. Activity. As tolerated. The patient is at risk for deconditioning. 8. Deep venous thrombosis prophylaxis, mechanical only, given the patient's thrombocytopenia as described above. 9. Admit to the Critical Care Unit. Greater than 35 minutes critical care time spent coordinating care for the patient. The patient will be a FULL CODE at this point in time. [facility]
[2017-12-08 04:31] LABS: Anion Gap 9 mmol/L (10-20); BUN (Urea Nitrogen) 48 mg/dL (8.4-25.7); Calc. Creatinine Clearance 113 mL/min (70-130); Calcium 7.4 mg/dL (7.8-10.44); Carbon Dioxide 29 mmol/L (23-31); Chloride 107 mmol/L (98-107); Estimated GFR-MDRD Greater than 90; Glucose 121 mg/dL (80-115); Potassium 4.8 mmol/L (3.5-5.1); Sodium 140 mmol/L (136-145)
[2017-12-08 04:36] LABS: Hemoglobin 9.5 g/dL (14.0-18.0); Mean Corpuscular Hemoglobin 29.2 pg (27.0-31.0); Mean Corpuscular Volume 91.2 fl (80.0-94.0); Mean Platelet Volume 9.5 fL (7.4-10.4); Platelet Count 29 thou/uL (130-400); RBC Distribution Width 19.3 % (11.5-14.5); Red Blood Cell (RBC) Count 3.25 mill/uL (4.70-6.10); White Blood Cell (WBC) Count 0.1 thou/uL (4.8-10.8)
[2017-12-08] MEDS: Sodium Chloride 0.9% 1,000 ML IV SCH ×3 (05:48→22:05)
[2017-12-08 07:23] LABS: Puncture Site LBA
[2017-12-08 07:24] LABS: ALV-art Gradient 81.375 (0-20); Actual Bicarbonate (HCO3a) 24.1 mEq/L (22-26); Base Excess (BEa) 1.7 mEq/L (0 (+/-) 2.5); CO2 Tension 28.1 mmHg (35.0-45.0); Hematocrit-ABG 21.3 % (42.0-52.0); O2 Tension (PaO2) 168.7 mmHg (80.0-100.0); pH, Arterial 7.55 (7.35-7.45)
[2017-12-08 07:25] LABS: Calcium, Ionized 1.1 mmol/L (1.12-1.30); Hemoglobin (Hb) 6.9 g/dL (14.0-18.0)
--- NOTE | 2017-12-08 07:55 | PDOC.PN ---
- Subjective Encounter Start Date: 12/08/17 Encounter Start Time: 07:53 was seen today in follow-up of Neutropenia, and sepsis. He is currently on BiPAP, and indicates he wants the mask off. He denies any pain. He does not appear labored in his breathing. - Objective Resuscitation Status: Resuscitation Status FULL:Full Resuscitation MAR Reviewed: Yes Vital Signs & Weight: Vital Signs (12 hours) Temp Pulse Resp Pulse Ox 12/08/17 07:07 97.5 F L 93 26 H 100 12/08/17 07:00 97.5 F L 12/08/17 06:54 96 29 H 99 12/08/17 05:15 97.9 F 12/08/17 02:45 104 H 22 H 100 12/08/17 01:10 98.2 F 99 38 H 99 12/08/17 00:40 99 16 100 12/08/17 00:00 98.2 F 12/07/17 23:54 100 24 H 100 Weight Admit Weight 209 lb 14.081 oz Weight 209 lb 14.081 oz Most Recent Monitor Data Heart Rate from ECG 89 NIBP 110/81 NIBP BP-Mean 88 Respiration from ECG 26 SpO2 100 I&O: 12/07/17 12/08/17 12/09/17 06:59 06:59 06:59 Intake Total 300 Output Total 425 0 Balance -125 0 Result Diagrams: 12/08/17 04:12 12/08/17 04:12 Phys Exam - Physical Examination HEENT: PERRLA, moist MMs Respiratory: no wheezing, no rales, no rhonchi, clear to auscultation bilateral + coarse breath sounds, and decreased at the bases Cardiovascular: RRR, no significant murmur, no rub Gastrointestinal: soft, non-tender, no distention, positive bowel sounds Musculoskeletal: edema present 2+ pitting edema bilaterally Dx/Plan (1) Neutropenia Code(s): D70.9 - NEUTROPENIA, UNSPECIFIED Status: Acute (2) Pancytopenia due to antineoplastic chemotherapy Code(s): D61.810 - ANTINEOPLASTIC CHEMOTHERAPY INDUCED PANCYTOPENIA; T45.1X5A - ADVERSE EFFECT OF ANTINEOPLASTIC AND IMMUNOSUP DRUGS, INIT Status: Acute (3) Sepsis Code(s): A41.9 - SEPSIS, UNSPECIFIED ORGANISM Status: Acute (4) Diffuse large B cell lymphoma Code(s): C83.30 - DIFFUSE LARGE B-CELL LYMPHOMA, UNSPECIFIED SITE Status: Acute Comment: for chemo next week. - Plan * Pancytopenia from Chemotherapy now with sepsis and respiratory failure- agree with Cefepime and Vancomycin- * Culture results are pending, and await ID input * Continue Neutropenic precautions * Respiratory failure - continue BiPAP , and await Pulmonary/Critical Care Input. * Will hold on CTA of chest , and await input from Pulmonary * HTN- blood pressure and heart rate are stable * Prognosis is guarded
[2017-12-08] MEDS ORDERED: Cefepime 2 GM, Syringe 2.5 ML in Sterile Water 10 ML SLOW IVP SCH (08:00)
[2017-12-08] MEDS: Allopurinol 100 MG TAB PO SCH (08:47)
[2017-12-08] MEDS: Acyclovir 800 mg Tablet PO SCH ×2 (08:48→11:41)
[2017-12-08] MEDS ORDERED: Prevnar 13-Val Conj/PF 0.5 ML SYRINGE IM ONE (09:00)
[2017-12-08] MEDS ORDERED: Furosemide 20 MG TAB PO SCH (09:00)
--- NOTE | 2017-12-08 09:45 | PDOC.EVN ---
Event Note - Event Note Event Note: I returned to speak with the patient after he was taken off BiPAP. His daughter Margaret was present at the bedside as well. I wanted to get clarification regarding his goals of care as on his previous admission his code status was DNR , and I am told he has revoked this. He has advanced B- cell Lymphoma which was just recently diagnosed. He also has Obstructive Jaundice as a result of this, and had the placement of a biliary STENT on his last admission a month ago. The patient is extremely weak, and lives alone as he is recently . He was discharged to Rehab. After a few days in Rehab he asked to be discharged prior to his scheduled date. When he got home, he was short of breath , and had extreme difficulty, and felt he couldn't manage. He went back to the ER and was admitted directly to Rehab, and lab work there revealed the dangerously low WBC. He was then admitted to our facility with acute respiratory failure sepsis, and Pancytopenia . I have asked him what his wishes regarding code status, and he says he wants to remain a FULL Code at this time. His daughter who is his MPOA, also says if there is any chance that he can survive they want to take it. I informed them both that the Palliative Team will be visiting with them today review some the same things we addressed. He will remain in the ICU today, and if stable overnight or later today, he can be moved to Oncology Unit. The time for this visit was 20 minutes.
[2017-12-08] MEDS: Vancomycin HCl 1.5 GM in Sodium Chloride 0.9% 250 ML 300 ML IVPB SCH ×2 (09:50→22:07)
--- NOTE | 2017-12-08 09:52 | CON ---
DATE OF CONSULTATION: 12/08/2017 This is a 67-year-old gentleman. History is obtained from talking to the daughter who is at the [facility]. She states he was recently diagnosed to have widespread lymphoma. He has had his first cycle o f chemotherapy 2 weeks ago. He was slow to recuperate. Additional information is that he has been in and out of the hospital here numerous times with a pres umed diagnosis of renal stones, though it appears there was never an issue about kidney stones rather extensive lymphoma as per the daughter. The patient smoked a pack a day, quit smoking at the age of 38. Denies any history of pneumonia, TB, asthma in the past. Apparently, he was in the rehab brief ly, apparently they felt he was choking and aspirating, became hypertensive and he was transferred to the hospital. PAST MEDICAL HISTORY: Up until recently pertinent only for hypertension, history of diabetes. PAST SURGICAL HISTORY: Previous surgeries include lithotripsy, a recent MediPort insertion. Recently discharged from the hospital on 12/04/2017 with a discharge diagnosis of large B cell lympho ma, bilirubin obstruction, renal failure, hypercalcemia. MEDICATIONS: His list of medicine from home includes Catapres 0.1, trazodone 50, Simethicone, guaife nesin, allopurinol 100, vitamin, and Protonix 40. ALLERGIES: SULFA. 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 No alcohol abuse. REVIEW OF SYSTEMS: Otherwise unremarkable. PHYSICAL EXAMINATION: VITAL SIGNS: Sats are 90% room air, pulse 100, blood pressure 96/64, respiration 28. CHEST: Extensive rhonchi and crackles bilaterally. CARDIOVASCULAR: Normal S1, S2. No gallop. ABDOMEN: Soft, distended. EXTREMITIES: 2+ edema. NEUROLOGIC: He is awake, alert, responsive. LABORATORY AND X-RAY FINDINGS: His lab shows pancytopenia, white count is 0.1, H&H 8 and 27, platele t count 29,000. PO2 168, pCO2 20%, 55, he is on a BiPAP. His renal function normal. BUN is 58. Lactic acid 3.1, calcium 7.4. IMPRESSION: 1. Large cell lymphoma, extensive with multiple involvement. 2. Presumed aspiration. 3. Pancytopenia. 4. Bronchopneumonia. PLAN: Speech will be consulted. Otherwise continue broad-spectrum antibiotics, will deescalate once we get all the cultures back. Can start him on steroids, nebs treatment. Speech will be consulted. I will follow. Forty-five minutes critical care time.
[2017-12-08] MEDS: Hydrocortisone Sod Succ/PF 100 mg/2 ml Vial IVP SCH ×2 (11:41→17:35)
[2017-12-08] MEDS: Acyclovir Sodium 350 MG in Sodium Chloride 0.9% 100 ML IVPB SCH ×2 (13:49→22:06)
[2017-12-08] MEDS: Furosemide 20 MG/2 ML VIAL IVP SCH (14:17)
[2017-12-08] MEDS: Cefepime 2 GM, Syringe 2.5 ML in Sterile Water 10 ML SLOW IVP SCH (15:58)
--- NOTE | 2017-12-08 20:24 | CON ---
DATE OF CONSULTATION: 12/08/2017 REASON FOR CONSULTATION: Lymphoma. HISTORY OF PRESENT ILLNESS: Mr. Montelongo is a 67-year-old male who was discharged from [facility] facility 2-3 days ago after being diagnosed with diffuse large B cell lymphoma. He presented with jaundice and fatigue. He had a CT scan which showed extensive metastasis to the liver, spleen and ab dominal lymph nodes. He was initially treated with Rituxan and did okay; one week later during the [facility] hospitalization, he received a reduced dose R-CHOP. He did receive a biliary stent during a prio r hospitalization with improvement in his total bilirubin. He was diagnosed home and presented on , he presented to the emergency room on the for fatigue and was admitted to the rehab at that time. Over the past 24 hours, he has gotten progressively worse and was having some respirator y distress, so presented to this emergency room for evaluation. He was placed on BiPAP for respirato ry distress, started on empiric antibiotics and admitted to the ICU. His CBC showed a white count of 0.1, hemoglobin of 11.1 and platelet count of 11,000. He did receive a unit of platelets. His lact ic acid was elevated. He was admitted to the ICU for sepsis. He did have speech study this morning which showed aspiration. He was seen at bedside in the ICU. His daughter was present. PAST MEDICAL HISTORY: 1. Diffuse large B-cell lymphoma. 2. Hypertension. 3. Biliary stent placement. 4. Lithotripsy. PAST SURGICAL HISTORY: ERCP. ALLERGIES: SULFA. CURRENT MEDICATIONS: 1. Acyclovir IV. 2. DuoNeb p.r.n. 3. Allopurinol 100 mg daily. 4. Cefepime q.8 hours. 5. Lasix 20 mg b.i.d. 6. Hydrocortisone 10 mg q.6 hours. 7. Levaquin daily. 8. Vancomycin daily. FAMILY HISTORY: No family history of lung cancer and lymphoma. SOCIAL HISTORY: His on 10/23/2017. He has 2 children. No tobacco, alcohol or illicit roxie g use. REVIEW OF SYSTEMS: Constitutional: Positive for fever and chills. Eyes: No blurred or double visi on. ENT: Positive for dysphagia. Cardiovascular: No chest pain, palpitations or syncope. Respira tory: Positive for shortness of breath. Gastrointestinal: No nausea, vomiting, diarrhea, constipat ion or abdominal pain. Genitourinary: No dysuria or hematuria. Musculoskeletal: Positive for joint and back pain. Skin: No rash or pruritus. Hematological: Pos itive for bruising. Neurologic: Positive for weakness. PHYSICAL EXAMINATION: VITAL SIGNS: Temperature is 98.8, pulse is 101, respiratory rate 28, BP is 93/59. He is 96% on room air. GENERAL: This is a chronically ill-appearing male in no acute distress. HEENT: Normocephalic, atraumatic. Pupils are equal and reactive to light. He has an ulcer on his b ottom lip. NECK: Supple. CARDIOVASCULAR: He has tachycardia. LUNGS: Positive for wheezing and rhonchi. ABDOMEN: Distended. Bowel sounds are positive. EXTREMITIES: He has got 2+ bilateral lower extremity edema. SKIN: No rash. HEMATOLOGIC: He has got scattered bruising. NEUROLOGICAL: Patient is mildly confused, but does answer appropriately. PERTINENT LABORATORY AND X-RAYS: Current WBCs are 0.1, hemoglobin 9.5, hematocrit 29.6, platelet cou nt 29,000. PT 14.9, INR is 1.2, PTT is 40.5. Sodium is 140, potassium 4.8, chloride 107, CO2 is 29, BUN is 48, creatinine 0.83, lactic acid is 3.1, calcium is 7.4, total bilirubin was 2.2, AST 36, ALT is 42, alkaline phosphatase is 245. Creatine kinase is 17. Troponin is negative. Serum total prot ein is 4.3, albumin 2.7, globulin 1.6. His CEA was 5 on prior admission. Radiology shows increased interstitial densities in the perihilar in lung bases. ASSESSMENT: 1. Diffuse large B cell lymphoma status post chemotherapy with a 50% dose reduction of R-CHOP. 2. Pancytopenia secondary to #1. 3. Acute respiratory distress. 4. Dysphagia. DISCUSSION: The patient was given salvage chemotherapy last week. He did receive a dose of Neulasta and is currently in his corina. I suspect his white count to slowly improve over the weekend. He wa s a DNR on previous admission. I discussed at length with the patient and his daughter. Code status , they wish to remain a FULL CODE for now with the understanding that he has a very extensive disease . The plan from our perspective is to support him through the weekend to see if he can improve and p bryceneelps return to rehabilitation. Otherwise, we will discuss end of life issues on Monday. The daugh ter is hesitant to make any decisions right now, mother and the patient's just several week s ago from cancer. Again, we will follow him closely. Thank you for the consult.
--- NOTE | 2017-12-08 22:55 | CON ---
DATE OF CONSULTATION: 12/08/2017 REASON FOR CONSULTATION: Neutropenic fever. HISTORY OF PRESENT ILLNESS: Mr. Montelongo is a 67-year-old gentleman who has history of hypertension and has been diagnosed with large cell lymphoma after he presented with a chronic weight loss, abdominal pain initially managed as a possible UTI in the outpatient setting. Eventually was admitted with evidence of biliary tract obstruction which required a stent placement. The patient had a biopsy of the masses in the abdominal area, which demonstrated large cell lymphoma and he has been started on chemotherapy with Rituxan and in a few days ago, received Adriamycin, Cytoxan, and vincristine. As part of the chemotherapeutic protocol through a left-sided port, which has been recently placed. The patient now has developed neutropenic fever associated with tachypnea and diffuse bilateral pulmonary interstitial infiltrates, hypoxemia. His initial findings showed a pulse of 113, BP 101/64, respiratory rate 30 with temperature 98.8, O2 sats 94% with a facemask. The pertinent findings in the exam showed dry mucous membranes. Ocular motion was intact. He was awake and oriented. There were coarse breath sounds. S1, S2 with no obvious murmurs. Abdomen is soft and nontender. Initial white cell count 0.1, hemoglobin 11, platelets 11,000, pH 7.41, pCO2 of 41, pO2 of 71, bicarbonate 25. Sodium 139, creatinine 1.03, glucose 145. Lactic acid 5.3 and then 3.1, bilirubin down to 2.2 from prior which was around 9. Transaminases are down as well as alkaline phosphatase. Troponin 0.01. BNP 73, albumin 2.7, lipase 7. TSH 1.74. Cortisol 55. Chest x-ray with perihilar density increased multiple hepatic masses in the ultrasound. Currently, Mr. Montelongo is awake. He is still with labored breathing in the ICU, but is not intubated. He follows commands. He denies any headaches, no sore throat, odynophagia, dysphagia, or back pain. No chest pain, no abdominal pain, still voiding spontaneously. PAST MEDICAL HISTORY: Includes hypertension and with prior history of nephrolithiasis with lithotripsy and a recent diagnosis of large cell lymphoma with most primarily abdominal involvement and liver involvement and biliary tract obstruction. The patient had a recent biliary stent placed. A port placed for chemotherapy and started on Adriamycin, Cytoxan, vincristine, and Rituxan. HOME MEDICATIONS: In addition to that his home meds include clonidine, loperamide, trazodone, simethicone, polyethylene glycol, pantoprazole, multivitamin, furosemide, allopurinol, inhalers. ALLERGIES: SULFA ANTIBIOTICS. FAMILY HISTORY: Noncontributory. SOCIAL HISTORY: Never a smoker. He is and he is currently on cefepime , levofloxacin, acyclovir, and vancomycin. PHYSICAL EXAMINATION: VITAL SIGNS: T-max 98.2, blood pressure 93/59, respiratory rate 25, O2 sat 99% . We had urinal output, which is about 900 mL past 24 hours. His balance is negative about 90. GENERAL: Appears chronically and acutely ill. He has obvious coarse crackles in the upper airways which he has a difficult time in coughing up, has a peripheral IV access. No Crespo catheter. HEENT: His ocular movements are conjugate. Slight icterus is noted. Pupils are reactive. Oral cavity is dry, quite a few teeth in place with some decay. NECK: Supple. No jugular vein distention. LUNGS: Symmetric air entry with faint crackles bilateral bases. HEART: S1, S2 with soft aortic murmur. Regular rate. ABDOMEN: Soft, without tenderness. No evidence of ascites. No bladder distention, some edema in the genital area. EXTREMITIES: No joint inflammatory activity. 1+ edema in lower extremities. Pulses 1+ in Dorsalis pedis. He is able to move extremities on command. Plantar responses are flexor without clonus. NEUROLOGIC: He knows he recognizes his relative in the room. He knows where he is and follows commands. LABORATORY DATA: White cell count 0.1, hemoglobin 9.5, platelets 29,000, with differential not feasible at this time. INR 1.2 and repeat pH 7.55, pCO2 of 28 , pO2 of 168. Sodium 140, creatinine 0.83, bilirubin 2.2. The other values have been discussed. Microbiology thus far we have 2 sets of blood cultures without growth and from yesterday 2 sets of blood cultures without growth. ASSESSMENT: Large cell lymphoma recently diagnosed on chemotherapy, having received first course of Adriamycin, Cytoxan, vincristine, and Rituxan, now with neutropenic fever and pulmonary manifestations with hypoxemia. DISCUSSION: The differential diagnosis includes bacteremia associated with neutropenia from the lymphoma treatment and since the patient had biliary obstruction and stent placed, the biliary tract infection with cholangitis is a possibility. but less likely since the stent appears to be functional with improvement in liver function tests, the lung findings could be secondary to the acute infection with increased capillary permeability or could reflect a primary lung infection. Opportunistic pathogens including CMV, Pneumocystis less likely in this acute setting, but may have to be reconsidered depending on clinical progress. Antifungal drugs may have to be added depending on clinical progress as well, in the next few days. Hopefully, we will see a rapid nondenominational of his WBC count which is the primary change that usually leads to resolution of the clinical manifestations of the neutropenic state. MTDD
[2017-12-09] MEDS: Cefepime 2 GM, Syringe 2.5 ML in Sterile Water 10 ML SLOW IVP SCH ×3 (00:05→15:19)
[2017-12-09] MEDS: Hydrocortisone Sod Succ/PF 100 mg/2 ml Vial IVP SCH ×4 (00:10→17:16)
[2017-12-09 04:19] LABS: Hemoglobin 9.3 g/dL (14.0-18.0); Mean Corpuscular HGB CONC 32.1 g/dL (32.0-36.0); Mean Corpuscular Hemoglobin 28.6 pg (27.0-31.0); Mean Corpuscular Volume 88.9 fl (80.0-94.0); Mean Platelet Volume 11.7 fL (7.4-10.4); Platelet Count 10 thou/uL (130-400); RBC Distribution Width 19.1 % (11.5-14.5); Red Blood Cell (RBC) Count 3.26 mill/uL (4.70-6.10); White Blood Cell (WBC) Count 0.2 thou/uL (4.8-10.8)
[2017-12-09 04:31] LABS: Anion Gap 13 mmol/L (10-20); BUN (Urea Nitrogen) 44 mg/dL (8.4-25.7); Calc. Creatinine Clearance 108 mL/min (70-130); Calcium 7.5 mg/dL (7.8-10.44); Carbon Dioxide 24 mmol/L (23-31); Chloride 111 mmol/L (98-107); Estimated GFR-MDRD 87; Glucose 130 mg/dL (80-115); Sodium 144 mmol/L (136-145)
[2017-12-09] MEDS: Acyclovir Sodium 350 MG in Sodium Chloride 0.9% 100 ML IVPB SCH ×3 (06:30→22:45)
--- NOTE | 2017-12-09 07:27 | PDOC.PN ---
- Subjective Encounter Start Date: 12/09/17 Encounter Start Time: 07:26 Mr. Montelongo was seen in follow-up of Neutropenia and sepsis. He is complaining of having a dry mouth, he denies dyspnea, he denies chest pain, abdominal pain, shortness of breath ect. He appears very weak. - Objective Resuscitation Status: Resuscitation Status FULL:Full Resuscitation MAR Reviewed: Yes Vital Signs & Weight: Vital Signs (12 hours) Temp Pulse Resp Pulse Ox 12/09/17 06:48 99 12/09/17 06:46 96 33 H 99 12/09/17 06:45 97.0 F L 12/09/17 04:00 98.4 F 12/09/17 00:00 98.7 F 12/08/17 23:13 97 24 H 99 12/08/17 20:00 98.0 F Weight Admit Weight 209 lb 14.081 oz Weight 209 lb 14.081 oz Most Recent Monitor Data Heart Rate from ECG 93 NIBP 104/66 NIBP BP-Mean 83 Respiration from ECG 28 SpO2 100 I&O: 12/08/17 12/09/17 12/10/17 06:59 06:59 06:59 Intake Total 300 2697 Output Total 425 1225 Balance -125 1472 Result Diagrams: 12/09/17 03:56 12/09/17 03:56 Phys Exam - Physical Examination HEENT: PERRLA Respiratory: no wheezing, no rales, no rhonchi, clear to auscultation bilateral Cardiovascular: RRR, no significant murmur, no rub Gastrointestinal: soft, non-tender, positive bowel sounds + Mild distension, Musculoskeletal: edema present massive lower extremity edema, and anasarca Dx/Plan (1) Neutropenia Code(s): D70.9 - NEUTROPENIA, UNSPECIFIED Status: Acute (2) Pancytopenia due to antineoplastic chemotherapy Code(s): D61.810 - ANTINEOPLASTIC CHEMOTHERAPY INDUCED PANCYTOPENIA; T45.1X5A - ADVERSE EFFECT OF ANTINEOPLASTIC AND IMMUNOSUP DRUGS, INIT Status: Acute (3) Sepsis Code(s): A41.9 - SEPSIS, UNSPECIFIED ORGANISM Status: Acute (4) Diffuse large B cell lymphoma Code(s): C83.30 - DIFFUSE LARGE B-CELL LYMPHOMA, UNSPECIFIED SITE Status: Acute Comment: for chemo next week. - Plan * Large Diffuse B-Cell Lymphoma with severe Pancytopenia due to chemotherapy- Continue Vancomycin and Cefepime * Acyclovir has been added * ID input appreciated- cultures are negative so far * Acute respiratory failure- he has been stable off BiPAP, and is oxygenating well * Thrombocytopenia- agree with transfusion as necessary. * Await the recovery of the neutropenia- and continue Neutropenic precautions * Continue other comfort and support care
--- NOTE | 2017-12-09 07:59 | PDOC.EVN ---
Event Note - Event Note Event Note: Mr. Montelongo and his daughter have agreed to try a diet with risks
--- NOTE | 2017-12-09 08:57 | PRG ---
DATE OF SERVICE: 12/09/2017 SUBJECTIVE: This morning, he is awake, alert, responsive. Remains weak. He is still coughing a lar ge amount of pus. OBJECTIVE: VITAL SIGNS: His temperature is 97, blood pressure is 97/57, pulse 107, respiration 26, sats are 98% on room air. CHEST: Reveals extensive rhonchi and crackles. CARDIAC: Sinus tachycardia. ABDOMEN: Soft. NEUROLOGICAL: He is encephalopathic. LABORATORY DATA: White count is 0.2, H&H is 9 and 29, platelet count 10,000. Electrolytes are fito l. X-RAY FINDINGS: Chest x-ray shows left-sided small effusion and an elevated right hemidiaphragm. IMPRESSION: 1. Pancytopenia, status post chemotherapy. 2. History of malignant lymphoma. 3. Hypertension. 4. Sepsis. PLAN: Continue hydrocortisone, vancomycin, Maxipime, acyclovir, Levaquin. Once we have cultures janet k, again deescalate the antibiotics. Apparently, he is still having problems with his swallowing. W e will try and get input from Speech, so we can start some nutrition in this gentleman. Continue observation in the ICU. Prognosis is guarded. One half-hour critical care time.
[2017-12-09] MEDS: Furosemide 20 MG/2 ML VIAL IVP SCH ×2 (08:58→13:06)
--- NOTE | 2017-12-09 09:00 | RAD ---
PORTABLE CHEST: Date: 12/09/17 HISTORY: Dyspnea. CCU follow-up. COMPARISON: 12/07/17. FINDINGS/IMPRESSION: Bilateral effusions. Bibasilar atelectasis and/or infiltrates, slightly more prominent on the left. M ild vascular engorgement. MediPort catheter unhanged. No significant interval change when compared to 12/07/17 exam. POS: [facility]
[2017-12-09] MEDS: Allopurinol 100 MG TAB PO SCH (09:04)
[2017-12-09] MEDS: Vancomycin HCl 1.5 GM in Sodium Chloride 0.9% 250 ML 300 ML IVPB SCH (10:19)
[2017-12-09 11:19] LABS: Bilirubin Negative (Negative); Blood, Urine Moderate (Negative); Clarity CLEAR (Clear); Glucose, Urine (Dipstick) Negative (Negative); Leukocyte Negative (Negative); Nitrite Negative (Negative); Protein, Urine (Dipstick) Negative (Neg-Trace); Specific Gravity, Urine 1.015 (1.002-1.036); Urobilinogen 0.2 mg/dL (0.2-1.0)
[2017-12-09 11:22] LABS: Bacteria/HPF None Seen HPF (None Seen); Hyaline Casts/LPF 0-3 HYALINE CAST LPF (0-3 Hyaline); Pathc Cast-AUWi Flag 0.29 (0-2.49); Squamous Epithelial None Seen HPF (0-3); WBC/HPF 0-3 HPF (0-3)
[2017-12-09] MEDS: Sodium Chloride 0.9% 1,000 ML IV SCH (19:32)
[2017-12-09 21:32] LABS: Vancomycin, Trough 31.1 ug/mL
[2017-12-09] MEDS ORDERED: Vancomycin HCl 750 MG in Sodium Chloride 0.9% 250 ML 250 ML IVPB SCH (22:45)
[2017-12-10] MEDS: Hydrocortisone Sod Succ/PF 100 mg/2 ml Vial IVP SCH ×4 (00:08→18:31)
[2017-12-10] MEDS: Cefepime 2 GM, Syringe 2.5 ML in Sterile Water 10 ML SLOW IVP SCH ×3 (00:09→16:37)
[2017-12-10 05:05] LABS: Hemoglobin 9.2 g/dL (14.0-18.0); Mean Corpuscular HGB CONC 31.5 g/dL (32.0-36.0); Mean Corpuscular Hemoglobin 28.1 pg (27.0-31.0); Mean Platelet Volume 12.1 fL (7.4-10.4); Platelet Count 21 thou/uL (130-400); RBC Distribution Width 19.3 % (11.5-14.5); Red Blood Cell (RBC) Count 3.28 mill/uL (4.70-6.10); White Blood Cell (WBC) Count 0.3 thou/uL (4.8-10.8)
[2017-12-10 05:16] LABS: Anion Gap 8 mmol/L (10-20); BUN (Urea Nitrogen) 44 mg/dL (8.4-25.7); Calc. Creatinine Clearance 104 mL/min (70-130); Calcium 7.5 mg/dL (7.8-10.44); Carbon Dioxide 27 mmol/L (23-31); Chloride 113 mmol/L (98-107); Estimated GFR-MDRD 83; Glucose 104 mg/dL (80-115); Potassium 3.5 mmol/L (3.5-5.1); Sodium 144 mmol/L (136-145)
[2017-12-10] MEDS: Acyclovir Sodium 350 MG in Sodium Chloride 0.9% 100 ML IVPB SCH ×3 (05:37→21:17)
[2017-12-10] MEDS ORDERED: Midazolam HCl 2 mg/2 ml Vial ONE ×2 (08:21→08:31)
[2017-12-10] MEDS ORDERED: Lorazepam 2 MG/ML VIAL SLOW IVP PRN (08:41)
[2017-12-10] MEDS ORDERED: Fentanyl BOLUS 250 ML IVPB PRN (08:41)
[2017-12-10] MEDS ORDERED: Propofol 1,000 MG/100 ML VIAL IV PRN (08:41)
[2017-12-10] MEDS ORDERED: Propofol BOLUS 1,000 MG/100 ML VIAL IV PRN (08:41)
[2017-12-10] MEDS ORDERED: fentaNYL Citrate/PF 2,000 MCG in Sodium Chloride 0.9% 60 ML IV SCH (08:41)
[2017-12-10] MEDS ORDERED: Morphine 4 MG/ML VIAL SLOW IVP PRN (08:41)
[2017-12-10] MEDS ORDERED: DISCONTINUE PREVIOUS NARCOTIC PAIN MEDICATIONS AND BENZODIAZEPINES FS SCH (08:41)
[2017-12-10] MEDS ORDERED: Ventilator Sedation Protocol 1 EACH FS SCH (08:45)
[2017-12-10] MEDS ORDERED: Fentanyl 100 MCG/2 ML VIAL ONE (08:56)
[2017-12-10 09:25] LABS: ALV-art Gradient 101.625 (0-20); Actual Bicarbonate (HCO3a) 22.7 mEq/L (22-26); Base Excess (BEa) -1.1 mEq/L (0 (+/-) 2.5); CO2 Tension 33.9 mmHg (35.0-45.0); Calcium, Ionized 1.1 mmol/L (1.12-1.30); Hematocrit-ABG 25.8 % (42.0-52.0); O2 Tension (PaO2) 69.9 mmHg (80.0-100.0); Puncture Site LRA; pH, Arterial 7.44 (7.35-7.45)
[2017-12-10] MEDS: Allopurinol 100 MG TAB PO SCH (09:25)
--- NOTE | 2017-12-10 09:27 | OP ---
INDICATIONS: This morning, he was encephalopathic, confused, agitated. He had a stat echo, which showed his EF was normal. X-ray shows a left-sided pleural effusion, appears to be somewhat worse. DESCRIPTION OF PROCEDURE: His right hemidiaphragm is elevated. It is felt that he needed to be intubated. He was still breathing rapidly at 40 times a minute. A 7-1/2 endotracheal tube was used and placed over a bronchoscope. He was given 2 of Versed prior to the procedure. Bite block was placed in. On entering the posterior pharynx, copious amounts of thick secretions was seen. On entering the trachea, there was extensive tracheal plaques and superficial necrosis all the way down to the roberto. A 7-1/2 endotracheal tube was placed above the roberto. The patient was bagged. Thereafter, both the lungs were inspected and lavaged. The lavaged fluid was sent for Gram stain and C&S. To note, the right lung was inspected initially upper, middle and lower lobe , no endobronchial obstructionor pus_ was seen. This area was lavaged until clear. The left lung, left upper and left lower lobe was visualized once again and no endobronchial obstruction or pus seen. This area was lavaged with normal saline until clear. Washings sent for Gram stain and C&S. He is connected to warm cycle respirator. Nutrition will be started. I discussed this intubation with his daughter at length. She understands. We will discuss with the oncologist physicians in the next day or two regarding ongoing treatment plan, regarding code status, etc. KRISTINAD
--- NOTE | 2017-12-10 09:29 | PRG ---
DATE OF SERVICE: 12/10/2017 SUBJECTIVE: A 67-year-old gentleman who appears to be more encephalopathic this morning. OBJECTIVE: VITAL SIGNS: His sats are room air. He is breathing about 40 times a minute, pulse 100, and t emperature 97. CHEST: With bilateral rhonchi. CARDIAC: Normal S1, S2, no gallops. ABDOMEN: Distended, soft. LABORATORY DATA: BUN is 44, creatinine is normal. Platelet count , white count , H&H is 9 and 29, otherwise electrolytes are normal. All cultures are negative. Echocardiogram is being ordered. His BNP was normal. IMPRESSION: 1. Recurrent aspiration. 2. Encephalopathy. 3. Extensive lymphoma. PLAN: His vancomycin was discontinued. No evidence of any Staph infection. Continue Maxipime, Leva lexie, steroids, neb treatments. I am going to discuss with his daughter because of his mental status change, probably needs to be intubated. He is having severe respiratory distress. One-half hour critical care time.
--- NOTE | 2017-12-10 10:23 | RAD ---
CHEST 1 VIEW: Date: 12/10/17 HISTORY: Dyspnea. Follow-up. COMPARISON: 12/09/17. FINDINGS: Cardiac silhouette magnified and partially obscured by increasing patchy bibasilar infiltrates and bi lateral pleural fluid. Mediastinum midline. Pulmonary vasculature remains engorged. Left subclavian M ediPort in place. sports commentator leads overlie the chest. IMPRESSION: Increasing pulmonary vascular congestion with small amount of bilateral pleural fluid. POS: [facility]
--- NOTE | 2017-12-10 10:36 | PDOC.PN ---
- Subjective Encounter Start Date: 12/10/17 Encounter Start Time: 10:26 Mr. Montelongo was seen today in follow-up of Pancytopenia, and sepsis. The events of last night were noted. He became more confused and agitated, and his respiratory rate increased, and there was concern he may not be able to protect his airway and he has been intubated. - Objective Resuscitation Status: Resuscitation Status FULL:Full Resuscitation MAR Reviewed: Yes Vital Signs & Weight: Vital Signs (12 hours) Temp Pulse Resp BP Pulse Ox 12/10/17 08:30 91 78/51 L 12/10/17 06:42 97 12/10/17 06:40 97 23 H 97 12/10/17 04:00 97.5 F L 12/10/17 00:00 98 F Weight Admit Weight 209 lb 14.081 oz Weight 212 lb 8.41 oz Most Recent Monitor Data Heart Rate from ECG 93 NIBP 98/60 NIBP BP-Mean 71 Respiration from ECG 31 SpO2 97 I&O: 12/09/17 12/10/17 12/11/17 06:59 06:59 06:59 Intake Total 2697 1936 Output Total 1225 1570 Balance 1472 366 Result Diagrams: 12/10/17 04:43 12/10/17 04:43 Phys Exam - Physical Examination HEENT: PERRLA, sclera anicteric Respiratory: no wheezing + rhonchi bilaterally and coarse breath sounds Cardiovascular: RRR, no significant murmur, no rub Gastrointestinal: soft, positive bowel sounds Musculoskeletal: edema present massive edema and anasarca Dx/Plan (1) Neutropenia Code(s): D70.9 - NEUTROPENIA, UNSPECIFIED Status: Acute (2) Pancytopenia due to antineoplastic chemotherapy Code(s): D61.810 - ANTINEOPLASTIC CHEMOTHERAPY INDUCED PANCYTOPENIA; T45.1X5A - ADVERSE EFFECT OF ANTINEOPLASTIC AND IMMUNOSUP DRUGS, INIT Status: Acute (3) Sepsis Code(s): A41.9 - SEPSIS, UNSPECIFIED ORGANISM Status: Acute (4) Diffuse large B cell lymphoma Code(s): C83.30 - DIFFUSE LARGE B-CELL LYMPHOMA, UNSPECIFIED SITE Status: Acute Comment: for chemo next week. - Plan * Acute respiratory failure- patient has been intubated, and antibiotics have been tailored to include Levaquin, and Cefepime * Encephalopathy- ? etiology, Ammonia level was normal. It could be due to sepsis- will observe with treatment * Pancytopenia- continue Neutropenic precautions- Acyclovir has been added empirically * Large Diffuse B- cell Lymphoma- advanced- will discuss with Oncology his prognosis.
[2017-12-10] MEDS: GRANIX 300 MCG/0.5 ML VIAL SC SCH (13:03)
[2017-12-10 15:08] LABS: Hemoglobin 8.3 g/dL (14.0-18.0); Mean Corpuscular HGB CONC 32.1 g/dL (32.0-36.0); Mean Corpuscular Hemoglobin 28.4 pg (27.0-31.0); Mean Corpuscular Volume 88.5 fl (80.0-94.0); Mean Platelet Volume 13.9 fL (7.4-10.4); Platelet Count 11 thou/uL (130-400); RBC Distribution Width 19.2 % (11.5-14.5); Red Blood Cell (RBC) Count 2.92 mill/uL (4.70-6.10); White Blood Cell (WBC) Count 0.2 thou/uL (4.8-10.8)
[2017-12-10] MEDS: Sodium Chloride 0.9% 1,000 ML IV SCH (18:32)
[2017-12-11] MEDS: Hydrocortisone Sod Succ/PF 100 mg/2 ml Vial IVP SCH ×4 (00:10→17:35)
[2017-12-11] MEDS: Cefepime 2 GM, Syringe 2.5 ML in Sterile Water 10 ML SLOW IVP SCH ×3 (00:10→17:35)
[2017-12-11 04:41] LABS: Hemoglobin 8.3 g/dL (14.0-18.0); Mean Corpuscular HGB CONC 32.5 g/dL (32.0-36.0); Mean Corpuscular Hemoglobin 28.7 pg (27.0-31.0); Mean Corpuscular Volume 88.3 fl (80.0-94.0); Platelet Count 30 thou/uL (130-400); RBC Distribution Width 19.5 % (11.5-14.5); Red Blood Cell (RBC) Count 2.89 mill/uL (4.70-6.10); White Blood Cell (WBC) Count 0.6 thou/uL (4.8-10.8)
[2017-12-11 04:45] LABS: Anion Gap 13 mmol/L (10-20); BUN (Urea Nitrogen) 55 mg/dL (8.4-25.7); Calc. Creatinine Clearance 86 mL/min (70-130); Carbon Dioxide 24 mmol/L (23-31); Chloride 114 mmol/L (98-107); Estimated GFR-MDRD 66; Glucose 111 mg/dL (80-115); Potassium 3.4 mmol/L (3.5-5.1); Sodium 148 mmol/L (136-145)
[2017-12-11] MEDS: Acyclovir Sodium 350 MG in Sodium Chloride 0.9% 100 ML IVPB SCH ×3 (05:06→21:04)
[2017-12-11 05:09] LABS: Band 12 % (5-11); Lymphocytes 32 % (21-51); MDiff Complete? YES; Monocytes 12 % (0-10); Neutrophil 44 % (42-75); PLT Morphology Comment Appears Decreased; Target Cells MODERATE= 6-15 cells (100X) (0-1/hpf)
--- NOTE | 2017-12-11 09:08 | PRG ---
DATE OF SERVICE: 12/11/2017 SUBJECTIVE: Mr. Autumn Montelongo intubated on the vent, remains agitated. OBJECTIVE: VITAL SIGNS: Blood pressure 94/56, pulse 83, temperature is 97. CHEST: Bilateral rhonchi and crackles. CARDIAC: Sinus tachycardia. ABDOMEN: Soft. LABORATORY DATA: White count 8.6, H&H is 8 and 25, platelet count is improved to 30,000, big left sh ift. Electrolytes are normal. His BUN is 55. IMPRESSION: Respiratory failure, pancytopenia, status post chemotherapy, metastatic lymphoma, enceph alopathy. PLAN: Family to discuss with Oncology regarding ongoing care. Meantime, continue antibiotics, suppo rtive care, PT, nutrition. Progression remains guarded. One-half hour critical care time.
[2017-12-11] MEDS: Allopurinol 100 MG TAB PO SCH (09:09)
--- NOTE | 2017-12-11 09:11 | PDOC.PN ---
- Subjective Encounter Start Date: 12/11/17 Encounter Start Time: 09:10 Mr. Montelongo was seen today in follow-up of Pancytopenia and sepsis. He is intubated and sedated. He was reported by nursing staff to still be encephalopathic, and combative. - Objective Resuscitation Status: Resuscitation Status FULL:Full Resuscitation MAR Reviewed: Yes Vital Signs & Weight: Vital Signs (12 hours) Temp Pulse Resp BP 12/11/17 08:00 98.2 F 12/11/17 06:57 83 94/56 L 12/11/17 06:00 24 H 12/11/17 04:00 97.7 F 20 12/11/17 02:00 20 12/11/17 00:00 97.9 F 21 H 12/10/17 22:00 23 H Weight Admit Weight 209 lb 14.081 oz Weight 214 lb 1.102 oz Most Recent Monitor Data Heart Rate from ECG 100 NIBP 146/138 NIBP BP-Mean 144 Respiration from ECG 28 SpO2 90 I&O: 12/10/17 12/11/17 12/12/17 06:59 06:59 06:59 Intake Total 1936 1311 15.3 Output Total 1570 911 72 Balance 366 400 -56.7 Result Diagrams: 12/11/17 04:14 12/11/17 03:30 Phys Exam - Physical Examination HEENT: PERRLA Respiratory: no wheezing decreased breath sounds at the bases Cardiovascular: RRR, no significant murmur, no rub Gastrointestinal: soft, non-tender, positive bowel sounds Musculoskeletal: edema present 3+ pitting edema Dx/Plan (1) Neutropenia Code(s): D70.9 - NEUTROPENIA, UNSPECIFIED Status: Acute (2) Pancytopenia due to antineoplastic chemotherapy Code(s): D61.810 - ANTINEOPLASTIC CHEMOTHERAPY INDUCED PANCYTOPENIA; T45.1X5A - ADVERSE EFFECT OF ANTINEOPLASTIC AND IMMUNOSUP DRUGS, INIT Status: Acute (3) Sepsis Code(s): A41.9 - SEPSIS, UNSPECIFIED ORGANISM Status: Acute (4) Diffuse large B cell lymphoma Code(s): C83.30 - DIFFUSE LARGE B-CELL LYMPHOMA, UNSPECIFIED SITE Status: Acute Comment: for chemo next week. - Plan * Pancytopenia with sepsis- continue Levaquin and Cefepime * Cultures are negative so far. * Patient still has severe Neutropenia- continue precautions * Mild Hypernatremia, and a slight rise in creatinine- will increase the amount of free water per NG tube * Nutritional support- begin tube feeds today * He continues to require Vent support * Prognosis is guarded
--- NOTE | 2017-12-11 09:35 | RAD ---
CHEST 1 VIEW: COMPARISON: 12/10/17. HISTORY: Respiratory distress. Ventilated patient. FINDINGS: Redemonstration of a left-sided MediPort catheter. Interval placement of endotracheal and nasogastri c tubes. Stable opacification of the lung bases suggesting pleural and parenchymal changes. Diminis hed lung volumes. No pneumothorax. IMPRESSION: Interval placement of lines and tubes. POS: [facility]
[2017-12-11] MEDS: Sodium Chloride 0.9% 1,000 ML IV SCH ×2 (11:33→16:01)
[2017-12-11 13:01] VITALS: BMI 32.5
[2017-12-11] MEDS: GRANIX 300 MCG/0.5 ML VIAL SC SCH (15:59)
--- NOTE | 2017-12-11 20:45 | PRG ---
DATE OF SERVICE: 12/11/2017 SUBJECTIVE: The patient had to be intubated. PHYSICAL EXAMINATION: VITAL SIGNS: Temperature has been normal, blood 97/47, pulse 83, O2 sat 98%. HEENT: Miotic pupils. Sclerae are white. LUNGS: Symmetric with coarse breath sounds, diminished breath sounds in the right hemithorax. HEART: S1, S2. ABDOMEN: Slightly distended. LABORATORY DATA: White cell count up to 0.6, hemoglobin 8.3, platelets 30,000. Sodium 148, creatini ne 1.10. Bronchial wash and Tanya albicans likely a colonizing agent. ASSESSMENT AND DISCUSSION: Large cell lymphoma recently diagnosed, on chemotherapy with Adriamycin, Cytoxan, vincristine, and Rituxan, admitted with neutropenic fever, pulmonary manifestations, hypoxem ia and some improvement in neutropenia with Neupogen. All cultures thus far no growth, except for th e colonizing agent and from urine and bronchial washing aspirate. Continue current regimen with acyc lovir, cefepime and levofloxacin.
[2017-12-12] MEDS: Cefepime 2 GM, Syringe 2.5 ML in Sterile Water 10 ML SLOW IVP SCH ×3 (00:29→17:23)
[2017-12-12] MEDS: Hydrocortisone Sod Succ/PF 100 mg/2 ml Vial IVP SCH ×2 (00:38→05:35)
[2017-12-12 04:54] LABS: Anion Gap 11 mmol/L (10-20); BUN (Urea Nitrogen) 60 mg/dL (8.4-25.7); Calc. Creatinine Clearance 85 mL/min (70-130); Calcium 6.6 mg/dL (7.8-10.44); Carbon Dioxide 23 mmol/L (23-31); Chloride 117 mmol/L (98-107); Estimated GFR-MDRD 64; Glucose 133 mg/dL (80-115); Potassium 3.1 mmol/L (3.5-5.1); Sodium 148 mmol/L (136-145)
[2017-12-12 04:54] LABS: Hemoglobin 8.1 g/dL (14.0-18.0); Mean Corpuscular HGB CONC 31.9 g/dL (32.0-36.0); Mean Corpuscular Hemoglobin 28.3 pg (27.0-31.0); Mean Corpuscular Volume 88.5 fl (80.0-94.0); Mean Platelet Volume 12.5 fL (7.4-10.4); Platelet Count 15 thou/uL (130-400); RBC Distribution Width 19.4 % (11.5-14.5); Red Blood Cell (RBC) Count 2.86 mill/uL (4.70-6.10); White Blood Cell (WBC) Count 0.2 thou/uL (4.8-10.8)
[2017-12-12] MEDS: Acyclovir Sodium 350 MG in Sodium Chloride 0.9% 100 ML IVPB SCH ×2 (05:22→14:16)
[2017-12-12] MEDS: Sodium Chloride 0.9% 1,000 ML IV SCH ×2 (05:23→17:22)
[2017-12-12] MEDS ORDERED: Hydrocortisone Sod Succ/PF 100 mg/2 ml Vial IVP SCH (07:46)
--- NOTE | 2017-12-12 08:02 | PRG ---
DATE OF SERVICE: 12/12/2017 She is intubated on the vent, sedated. PHYSICAL EXAMINATION: VITAL SIGNS: Blood pressure 105/68, sats 90%, respiration rate 18. I's and O's have been 3556 in, 8 73 out. CHEST: Chest reveals bilateral rhonchi and crackles. CARDIAC: Normal S1, S2, no gallops. ABDOMEN: Soft, no masses. LABORATORY DATA: White count is 0.2, H&H is 8 and 25, platelet count 15,000. Electrolytes are fito l. X-ray still shows diffuse haziness, small left pleural effusion. IMPRESSION: 1. Pancytopenia, extensive. 2. Lymphoma. 3. Respiratory failure. 4. Encephalopathy. 5. Azotemia. PLAN: Continue broad-spectrum antibiotics, Maxipime, Levaquin. He is clearly not weanable at this stage. Discuss with family ongoing issues. Still awaiting input from Oncology regarding long-term prognosis. In the meantime, continue nutritio n, PT, and supportive care. One-half hour critical care time.
--- NOTE | 2017-12-12 08:15 | PDOC.PN ---
- Subjective Encounter Start Date: 12/12/17 Encounter Start Time: 08:12 Mr. Montelongo wasseen today in follow-up of Pancytopenia and sepsis. He is intubated, and he still seems disoriented and a bit agitated . - Objective Resuscitation Status: Resuscitation Status FULL:Full Resuscitation MAR Reviewed: Yes Vital Signs & Weight: Vital Signs (12 hours) Temp Pulse Resp 12/12/17 08:05 93 12/12/17 06:00 24 H 12/12/17 04:00 97.8 F 20 12/12/17 02:27 91 12/12/17 02:00 23 H 12/12/17 00:00 97.8 F 23 H 12/11/17 22:06 91 12/11/17 22:00 23 H Weight Admit Weight 209 lb 14.081 oz Weight 216 lb 7.903 oz Most Recent Monitor Data Heart Rate from ECG 94 NIBP 105/68 NIBP BP-Mean 75 Respiration from ECG 23 SpO2 95 I&O: 12/11/17 12/12/17 12/13/17 06:59 06:59 06:59 Intake Total 1311 3556.4 16.4 Output Total 911 873 27 Balance 400 2683.4 -10.6 Result Diagrams: 12/12/17 04:30 12/12/17 03:30 Phys Exam - Physical Examination HEENT: PERRLA + rhonchi bilaterally, no rales Cardiovascular: RRR, no significant murmur, no rub Gastrointestinal: soft, non-tender, no distention, positive bowel sounds Musculoskeletal: edema present massive lower extremity edema Dx/Plan (1) Neutropenia Code(s): D70.9 - NEUTROPENIA, UNSPECIFIED Status: Acute (2) Pancytopenia due to antineoplastic chemotherapy Code(s): D61.810 - ANTINEOPLASTIC CHEMOTHERAPY INDUCED PANCYTOPENIA; T45.1X5A - ADVERSE EFFECT OF ANTINEOPLASTIC AND IMMUNOSUP DRUGS, INIT Status: Acute (3) Sepsis Code(s): A41.9 - SEPSIS, UNSPECIFIED ORGANISM Status: Acute (4) Diffuse large B cell lymphoma Code(s): C83.30 - DIFFUSE LARGE B-CELL LYMPHOMA, UNSPECIFIED SITE Status: Acute Comment: for chemo next week. - Plan * Large B-Cell Lymphoma- advanced and only, recently diagnosed which was complicated obstructive jaundice, and biliary STENT placement. He is now with Pancytopenia after salvage chemotherapy. He also has sepsis from unknown source ? Pulmonary. He has not exhibited much improvement overnight * Continue Ventilator support for Acute respiratory failure- Critical care Managing * Continue Levaquin Cefepime, and Acyclovir- due to the severe Neutropenia- He received Filgastrim with not much improvement, his counts have actually dropped * Hypernatremia- serum sodium is creeping up, as well as creatinine- may need to increase free water through DHT * Nutritional support with tube feeding * Prognosis is guarded .
--- NOTE | 2017-12-12 08:42 | RAD ---
AP CHEST: Indication: History of intubation. Comparison: 12-11-17 FINDINGS: The left subclavian chest wall port, gastric catheter, and ET tube are unchanged. There is worsening central edema pattern and pulmonary vascular congestion. Right costophrenic angle is excluded. Small bilateral pleural effusions persist. No pneumothorax is evident. IMPRESSION: Worsening central edema. POS: [facility]
[2017-12-12] MEDS ORDERED: Pantoprazole 40 MG VIAL IVP SCH (09:00)
[2017-12-12] MEDS ORDERED: Pot Chloride/Pot Bicarb/Cit Ac 25 mEq Effervescent Tablet PO SCH (09:00)
[2017-12-12] MEDS ORDERED: Micafungin 100 MG in Sodium Chloride 0.9% 100 ML IVPB SCH (10:00)
[2017-12-12] MEDS: Allopurinol 100 MG TAB PO SCH (10:05)
[2017-12-12] MEDS: GRANIX 300 MCG/0.5 ML VIAL SC SCH (14:15)
[2017-12-12 15:20] VITALS: BP 87/52
[2017-12-12 16:42] VITALS: TEMP 97.9
[2017-12-12] MEDS ORDERED: Morphine 4 MG/ML VIAL SLOW IVP PRN (16:59)
[2017-12-12] MEDS ORDERED: Lorazepam 2 MG/ML VIAL SLOW IVP PRN (17:01)
--- NOTE | 2017-12-12 23:41 | DIS ---
DATE OF ADMISSION: 12/08/2017 DATE OF : 12/12/2017 DIAGNOSES: 1. Advanced diffuse large B cell lymphoma. 2. Pancytopenia secondary to chemotherapy. 3. Acute respiratory failure. 4. Sepsis. CODE STATUS: DNR. HOSPITAL COURSE: Mr. Montelongo was a 67-year-old gentleman who was recently diagnosed with advanced B cell lymphoma, which was complicated by biliary obstruction and he was status post stent placement. He was admitted to our facility after he developed acute respiratory failure. He had been recently discharged from the [facility] by the patient's choice and got extremely weak and dys pneic at home. He was admitted to our facility and found to have a profound pancytopenia. He was al so found to have bilateral pulmonary atelectasis and infiltrates. He was admitted and started on bro ad spectrum IV antibiotics. He was seen by the Infectious Disease specialist as well as a pulmonolog ist and oncologist. His cultures were all negative except for some contaminants in the sputum and ur ine. He became more short of breath during the course of his admission and had to be intubated. He was given filgrastim in order to try to improve his white blood cell, platelet count, however, this d id not prove successful. He continued to be encephalopathic and unable to wean from the vent. His o verall prognosis was very grave even prior to this illness. This was communicated with the patient's daughter. She was seen by the palliative care team on several instances during the hospital stay an d she eventually made the decision to withdraw him from the ventilator and he peacefully on 03/2018.
== END 2017-12-12 17:36 | disposition expired | DRG 853 ==
LOC: ERS 18:23 → CCU 21:56
PROVIDERS: ADMIT Internal Medicine; ATTEND Internal Medicine
PROC: 30233R1 Transfusion of Nonautologous Platelets into Peripheral Vein, Percutaneous Approach (ICD-10-PCS; 2017-12-07)
PROC: 0B9J8ZZ Drainage of Left Lower Lung Lobe, Via Natural or Artificial Opening Endoscopic (ICD-10-PCS; principal; 2017-12-10)
PROC: 0B9C8ZZ Drainage of Right Upper Lung Lobe, Via Natural or Artificial Opening Endoscopic (ICD-10-PCS; 2017-12-10)
PROC: 0B9G8ZZ Drainage of Left Upper Lung Lobe, Via Natural or Artificial Opening Endoscopic (ICD-10-PCS; 2017-12-10)
PROC: 0B9D8ZZ Drainage of Right Middle Lung Lobe, Via Natural or Artificial Opening Endoscopic (ICD-10-PCS; 2017-12-10)
PROC: 0B9F8ZZ Drainage of Right Lower Lung Lobe, Via Natural or Artificial Opening Endoscopic (ICD-10-PCS; 2017-12-10)
PROC: 5A1945Z Respiratory Ventilation, 24-96 Consecutive Hours (ICD-10-PCS; 2017-12-10)
PROC: 0BH18EZ Insertion of Endotracheal Airway into Trachea, Via Natural or Artificial Opening Endoscopic (ICD-10-PCS; 2017-12-10)
DX: A41.9 Sepsis, unspecified organism (principal); D61.810 Antineoplastic chemotherapy induced pancytopenia; G93.40 Encephalopathy, unspecified; K83.1 Obstruction of bile duct; J96.01 Acute respiratory failure with hypoxia; Q79.1 Other congenital malformations of diaphragm; J69.0 Pneumonitis due to inhalation of food and vomit; C83.30 Diffuse large B-cell lymphoma, unspecified site; E87.0 Hyperosmolality and hypernatremia; J90 Pleural effusion, not elsewhere classified; C78.7 Secondary malignant neoplasm of liver and intrahepatic bile duct; C78.89 Secondary malignant neoplasm of other digestive organs; J98.11 Atelectasis; T45.1X5A Adverse effect of antineoplastic and immunosuppressive drugs, initial encounter; D69.6 Thrombocytopenia, unspecified; Z87.442 Personal history of urinary calculi; Z87.891 Personal history of nicotine dependence; I10 Essential (primary) hypertension; Z66 Do not resuscitate; Z51.5 Encounter for palliative care; J39.8 Other specified diseases of upper respiratory tract
CPT/HCPCS: 36415; 36416; 36430; 47000; 71045; 74177; 74330; 76705; 77012; 78226; 78306; 80048; 80053; 80202; 81003; 81015; 82140; 82248; 82378; 82533; 82553; 82805; 83605; 83615; 83690; 83735; 83880; 83930; 83935; 84165; 84443; 84484; 84550; 85007; 85025; 85027; 85610; 85730; 86301; 86850; 86900; 86901; 87040; 87070; 87086; 87205; 88307; 88341; 88342; 88377; 90471; 90670; 93005; 93306; 94002; 94003; 94640; 94660; 94760; 96361; 96365; 96367; 96368; 96375; A4216; A9503; A9537; C1788; C9113; G0009; G8978-GP-CL; G8978-GP-CN; G8979-GP-CJ; G8979-GP-CK; G8987-GO-CK; G8988-GO-CI; G8996-GN-CN; G8997-GN-CM; J0133; J0692; J0696; J1100; J1200; J1442; J1447; J1453; J1642; J1650; J1720; J1940; J1956; J2001; J2060; J2185; J2248; J2250; J2270; J2405; J2469; J2505; J2704; J2930; J3010; J3370; J3489; J7050; J7620; J9000; J9070; J9310; J9370; P9035; P9045; P9047; Q9961